=== PATIENT | female | born 1950 | race Caucasian/White ===

== ENCOUNTER 2020-01-13 11:06 | Outpatient (CLI) | payer MEDICARE, SELFPAY ==
[2020-01-13 11:45] LABS: Cholesterol 142 mg/dL (0-200); HDL Direct 49 mg/dL; Triglycerides 215 mg/dL (<150)
[2020-01-13 11:46] LABS: Blood Urea Nitrogen 16 mg/dL (7-17); Carbon Dioxide 25 mmol/L (22-30); Chloride 96 mmol/L (98-107); Estimated Glomerular Filt Rate > 60; Glucose 105 mg/dL (65-105); Potassium 4.3 mmol/L (3.4-5.0); Sodium 134 mmol/L (137-145)
[2020-01-13 11:56] LABS: LDL Cholesterol Direct 65 mg/dL
[2020-01-13 12:01] LABS: Sodium Urine Random 62 meq/L
[2020-01-15 05:09] LABS: Osmolality, Urine 490 mOsm/kg (50-1200)
== END 2020-01-13 11:07 | disposition home or self-care (01) ==
PROVIDERS: Internal Medicine Endocrinology, Diabetes & Metabolism; Visit Provider Internal Medicine
DX: E23.2 Diabetes insipidus (principal); E78.5 Hyperlipidemia, unspecified
CPT/HCPCS: 36415; 80048; 80061; 83935; 84300

== ENCOUNTER 2020-01-20 11:18 | Outpatient (CLI) | payer MEDICARE, SELFPAY ==
[2020-01-20 12:22] LABS: Blood Urea Nitrogen 12 mg/dL (7-17); Calcium 8.9 mg/dL (8.4-10.2); Carbon Dioxide 25 mmol/L (22-30); Chloride 96 mmol/L (98-107); Estimated Glomerular Filt Rate > 60; Glucose 179 mg/dL (65-105); Potassium 3.1 mmol/L (3.4-5.0); Sodium 135 mmol/L (137-145)
[2020-01-22 06:45] LABS: C-Peptide 0.93 ng/mL (0.80-3.85)
[2020-01-23 04:53] LABS: Osmolality, Urine 537 mOsm/kg (50-1200)
[2020-01-23 06:29] LABS: Glutamic acid decarboxylase AA <5 IU/mL (<5)
[2020-01-25 07:37] LABS: Islet Cell Antibody Screen NEGATIVE (NEGATIVE)
== END 2020-01-20 11:19 | disposition home or self-care (01) ==
PROVIDERS: Visit Provider Internal Medicine Endocrinology, Diabetes & Metabolism
DX: E11.9 Type 2 diabetes mellitus without complications (principal); E23.0 Hypopituitarism
CPT/HCPCS: 36415; 80048; 83935; 84681; 86341

== ENCOUNTER 2020-02-11 00:14 | Day surgery (SDC) | payer MEDICARE, SELFPAY ==
[2020-02-07 09:21] VITALS: BMI 44.3
[2020-02-11 07:45] VITALS: BP 177/61; PULSE 84; RESP 18; TEMP 36.1; O2SAT 96; BMI 29.1
[2020-02-11] MEDS: LACTATED RINGERS 1,000 ML 150 ML IV CONT (07:50)
[2020-02-11 08:04] LABS: Glucose Point of Care 123 (65-105)
--- NOTE | 2020-02-11 08:17 | WPDANESEPPF ---
Anes - Initial Pre Proc Eval Procedure: Operation Date: 02/11/20 08:30 Proposed Procedures p Screening Colonoscopy - Palmer Dudley MD Date/Time: 02/11/20 08:17 Surgeon: Palmer Dudley MD Pre Op Diagnosis: Neoplasm Screening Patient Data Age: 69 Gender: F Height: 5 ft 2 in Weight: 72.3 kg Last Vital Signs Temp 36.1 C L 02/11/20 07:45 Pulse 84 02/11/20 07:45 Resp 18 02/11/20 07:45 BP 177/61 H 02/11/20 07:45 Pulse Ox 96 02/11/20 07:45 Allergies Allergy/AdvReac Type Severity Reaction Status Date / Time metformin Allergy Unknown Verified 02/11/20 07:40 Sulfa (Sulfonamide Allergy Unknown Verified 02/11/20 07:40 Antibiotics) Home Medications Medication Instructions Recorded Confirmed Type isosorbide mononitrate 60 mg 60 mg PO DAILY #90 tablet 10/14/19 02/11/20 Rx tablet,extended release 24 hr lancets 32 gauge #400 each 12/09/19 01/15/20 Rx lisinopril 20 mg tablet 20 mg PO DAILY #90 tablet 12/09/19 02/11/20 Rx blood-glucose meter #1 each 12/16/19 01/15/20 Rx amlodipine 5 mg tablet 5 mg PO DAILY 12/25/19 02/11/20 History furosemide 40 mg tablet 40 mg PO QAM 12/25/19 02/11/20 History gabapentin 300 mg capsule 300 mg PO DAILY 12/25/19 02/11/20 History oxybutynin chloride 10 mg 10 mg PO DAILY 12/25/19 02/11/20 History tablet,extended release 24 hr propranolol 20 mg tablet 20 mg PO DAILY tablet 12/25/19 02/11/20 History rosuvastatin 20 mg tablet 20 mg PO DAILY 12/25/19 02/11/20 History sertraline 100 mg tablet 100 mg PO BID tablet 12/25/19 02/11/20 History carbidopa 25 mg-levodopa 100 mg 1 tablet PO TID 12/31/19 02/11/20 History tablet quetiapine 25 mg tablet 25 mg PO DAILY tablet 12/31/19 02/11/20 History hydrocortisone 20 mg tablet 20 mg PO DAILY 90 Days #90 tablet 01/15/20 02/11/20 Rx hydrocortisone 5 mg tablet 5 mg PO DAILY #90 tablet 01/15/20 02/11/20 Rx insulin glargine 100 unit/mL (3 45 unit SUB-Q DAILY 90 Days #40.5 01/15/20 02/11/20 Rx mL) subcutaneous pen ml insulin lispro 100 unit/mL 20 unit SUB-Q TID 90 Days #54 ml 01/15/20 02/11/20 Rx subcutaneous pen lancets #100 each 01/15/20 01/15/20 Rx levothyroxine 75 mcg tablet 75 mcg PO DAILY #90 tablet 01/15/20 02/11/20 Rx potassium chloride 20 mEq/15 mL 20 meq PO BID 30 Days #900 ml 01/15/20 02/11/20 Rx oral liquid blood sugar diagnostic #400 each 01/16/20 Rx clopidogrel 75 mg tablet 75 mg PO DAILY #90 tablet 01/28/20 02/11/20 Rx desmopressin 0.05 mg PO TID 02/07/20 02/11/20 History Laboratory Tests 02/11/20 08:02 POC Capillary Glucose 123 mg/dl H mg/dl (65-105) Patient hx anesthesia problems: none Family hx anesthesia problems: none PMFSH Past Medical History Medical History Adrenal insufficiency Diabetes mellitus with hyperglycemia Hypopituitarism Hypothyroidism, unspecified Pituitary deficiency Family History Family History Mother Cerebrovascular accident Family history of diabetes mellitus in first degree relative Patient's mother is Sibling Family history of chronic obstructive pulmonary disease Family history of diabetes mellitus in first degree relative Father Patient's father is Social History Social History Smoking status: Never smoker Alcohol intake: never Anes - Eval Final PreProcedure Day of Procedure 02/11/20 08:17 Patient weight: overweight Heart: regular rate and rhythm Lungs: clear to auscultation Airway: Mallampati scale class II Neurological: other (alert) Last oral intake: >/= 8 hours ASA classification: III Emergent: no Anesthetic plan: proceed Anesthesia type and monitoring: general GIVS and standard monitoring Informed Consent: The patient's anesthetic plan and its attendant risks and benefits were discussed wi
--- NOTE | 2020-02-11 08:44 | PM.HPGS ---
History of Present Illness History of Present Illness Consent: Risks, benefits, and alternatives have been discussed and questions answered. Patient agrees to proceed with procedure. Chief complaint: Neoplasm Screening Narrative: Darlyn Vazquez is a 69 year old female her for abnormal cologuard, last colonoscopy 8 years ago with polyp Review of Systems Constitutional: Constitutional: Denies headache(s) and Denies weakness Eyes: Eyes: Denies blurry vision ENT: Reports Normal hearing present, Denies headache(s) and Denies neck pain Cardiovascular: Cardiovascular: Denies chest pain and Denies dyspnea Respiratory: Respiratory: Denies dyspnea Gastrointestinal: Gastrointestinal: Reports no additional gastrointestinal complaints Genitourinary: Genitourinary: Denies dysuria Musculoskeletal: Musculoskeletal: Denies neck pain Integumentary/Breasts: Skin/Breast: Denies dry skin Neurologic: Reports Normal hearing present, Denies headache(s) and Denies weakness Psychiatric: Psychiatric: Denies anxiety Endocrine: Endocrine: Denies change in body appearance Hematologic/Lymphatic: Hematologic/Lymphatic: Denies easy bleeding Allergic/Immunologic: Allergic/Immunologic: Denies urticaria PMFSH Past Medical History Medical History Adrenal insufficiency Diabetes mellitus with hyperglycemia Hypopituitarism Hypothyroidism, unspecified Pituitary deficiency Family History Family History Mother Cerebrovascular accident Family history of diabetes mellitus in first degree relative Patient's mother is Sibling Family history of chronic obstructive pulmonary disease Family history of diabetes mellitus in first degree relative Father Patient's father is Social History Social History Smoking status: Never smoker Alcohol intake: never Meds Home Medications and Allergies Home Medications Medication Instructions Recorded Confirmed Type isosorbide mononitrate 60 mg 60 mg PO DAILY #90 tablet 10/14/19 02/11/20 Rx tablet,extended release 24 hr lancets 32 gauge #400 each 12/09/19 01/15/20 Rx lisinopril 20 mg tablet 20 mg PO DAILY #90 tablet 12/09/19 02/11/20 Rx blood-glucose meter #1 each 12/16/19 01/15/20 Rx amlodipine 5 mg tablet 5 mg PO DAILY 12/25/19 02/11/20 History furosemide 40 mg tablet 40 mg PO QAM 12/25/19 02/11/20 History gabapentin 300 mg capsule 300 mg PO DAILY 12/25/19 02/11/20 History oxybutynin chloride 10 mg 10 mg PO DAILY 12/25/19 02/11/20 History tablet,extended release 24 hr propranolol 20 mg tablet 20 mg PO DAILY tablet 12/25/19 02/11/20 History rosuvastatin 20 mg tablet 20 mg PO DAILY 12/25/19 02/11/20 History sertraline 100 mg tablet 100 mg PO BID tablet 12/25/19 02/11/20 History carbidopa 25 mg-levodopa 100 mg 1 tablet PO TID 12/31/19 02/11/20 History tablet quetiapine 25 mg tablet 25 mg PO DAILY tablet 12/31/19 02/11/20 History hydrocortisone 20 mg tablet 20 mg PO DAILY 90 Days #90 tablet 01/15/20 02/11/20 Rx hydrocortisone 5 mg tablet 5 mg PO DAILY #90 tablet 01/15/20 02/11/20 Rx insulin glargine 100 unit/mL (3 45 unit SUB-Q DAILY 90 Days #40.5 01/15/20 02/11/20 Rx mL) subcutaneous pen ml insulin lispro 100 unit/mL 20 unit SUB-Q TID 90 Days #54 ml 01/15/20 02/11/20 Rx subcutaneous pen lancets #100 each 01/15/20 01/15/20 Rx levothyroxine 75 mcg tablet 75 mcg PO DAILY #90 tablet 01/15/20 02/11/20 Rx potassium chloride 20 mEq/15 mL 20 meq PO BID 30 Days #900 ml 01/15/20 02/11/20 Rx oral liquid blood sugar diagnostic #400 each 01/16/20 Rx clopidogrel 75 mg tablet 75 mg PO DAILY #90 tablet 01/28/20 02/11/20 Rx desmopressin 0.05 mg PO TID 02/07/20 02/11/20 History Allergies Allergy/AdvReac Type Severity Reaction Status Date / Time metformin Allergy Unknown Verified 01/25
[2020-02-11 09:40] VITALS: BP 141/68; PULSE 62; RESP 19; O2SAT 98
[2020-02-11 09:50] VITALS: BP 187/63; PULSE 56; RESP 20; O2SAT 97
[2020-02-11 10:23] LABS: Glucose Point of Care 107 (65-105)
[2020-02-11 10:28] VITALS: BP 188/85; PULSE 53; RESP 26; O2SAT 96
== END 2020-02-11 10:27 | disposition home or self-care (01) ==
PROVIDERS: Visit Provider Internal Medicine Gastroenterology
PROC: 0DJD8ZZ Inspection of Lower Intestinal Tract, Via Natural or Artificial Opening Endoscopic (ICD-10-PCS; CPT 45378; principal; 2020-02-11 08:30)
DX: Z12.11 Encounter for screening for malignant neoplasm of colon (principal); D12.0 Benign neoplasm of cecum; D12.2 Benign neoplasm of ascending colon; D12.3 Benign neoplasm of transverse colon; K63.5 Polyp of colon; R19.5 Other fecal abnormalities; K57.30 Diverticulosis of large intestine without perforation or abscess without bleeding; K64.8 Other hemorrhoids; K64.4 Residual hemorrhoidal skin tags; E11.9 Type 2 diabetes mellitus without complications; E03.9 Hypothyroidism, unspecified; E23.0 Hypopituitarism; Z79.4 Long term (current) use of insulin; Z79.02 Long term (current) use of antithrombotics/antiplatelets
CPT/HCPCS: 45385; 88305; J2704; J7120

== ENCOUNTER 2020-04-02 12:02 | Outpatient (CLI) | payer MEDICARE, SELFPAY ==
[2020-04-02 12:51] LABS: Blood Urea Nitrogen 14 mg/dL (7-17); Calcium 8.9 mg/dL (8.4-10.2); Carbon Dioxide 28 mmol/L (22-30); Chloride 98 mmol/L (98-107); Estimated Glomerular Filt Rate > 60; Glucose 279 mg/dL (65-105); Potassium 4.5 mmol/L (3.4-5.0); Sodium 133 mmol/L (137-145)
== END 2020-04-02 12:03 | disposition home or self-care (01) ==
LOC: ANHLAB 12:03
PROVIDERS: Visit Provider Internal Medicine Endocrinology, Diabetes & Metabolism
DX: E23.0 Hypopituitarism (principal); E11.9 Type 2 diabetes mellitus without complications; E27.40 Unspecified adrenocortical insufficiency; E87.6 Hypokalemia
CPT/HCPCS: 36415; 80048

== ENCOUNTER 2020-04-16 14:23 | Outpatient (CLI) | payer MEDICARE, SELFPAY ==
[2020-04-16 16:00] LABS: Blood Urea Nitrogen 18 mg/dL (7-17); Calcium 8.9 mg/dL (8.4-10.2); Carbon Dioxide 29 mmol/L (22-30); Chloride 101 mmol/L (98-107); Estimated Glomerular Filt Rate > 60; Glucose 71 mg/dL (65-105); Potassium 3.8 mmol/L (3.4-5.0); Sodium 136 mmol/L (137-145)
[2020-04-16 16:12] LABS: Parathyroid Intact 131.4 pg/mL (7.5-53.5)
[2020-04-16 17:16] LABS: Free T4 Free Thyroxine 0.93 ng/mL (0.78-2.19); Vitamin D 25 Hydroxy 26.5 ng/mL
== END 2020-04-16 14:24 | disposition home or self-care (01) ==
PROVIDERS: Visit Provider Internal Medicine Endocrinology, Diabetes & Metabolism
DX: E11.65 Type 2 diabetes mellitus with hyperglycemia (principal); Z79.4 Long term (current) use of insulin; E23.0 Hypopituitarism; E78.1 Pure hyperglyceridemia; N18.3 Chronic kidney disease, stage 3 (moderate)
CPT/HCPCS: 36415; 80048; 82306; 83970; 84439

== ENCOUNTER 2020-04-17 13:39 | Outpatient (CLI) | payer MEDICARE, SELFPAY ==
[2020-04-20 09:44] LABS: Osmolality, Urine 611 mOsm/kg (50-1200)
== END 2020-04-17 13:40 | disposition home or self-care (01) ==
PROVIDERS: Visit Provider Internal Medicine Endocrinology, Diabetes & Metabolism
DX: E03.8 Other specified hypothyroidism (principal); E21.3 Hyperparathyroidism, unspecified; E11.65 Type 2 diabetes mellitus with hyperglycemia; E23.0 Hypopituitarism; E23.2 Diabetes insipidus; E27.40 Unspecified adrenocortical insufficiency; M85.80 Other specified disorders of bone density and structure, unspecified site; Z79.4 Long term (current) use of insulin; E78.1 Pure hyperglyceridemia; N18.3 Chronic kidney disease, stage 3 (moderate)
CPT/HCPCS: 83935

== ENCOUNTER 2020-10-07 08:59 | Outpatient (CLI) | payer MEDICARE, SELFPAY ==
[2020-10-07 10:10] LABS: Creatinine Urine 108.3 mg/dL
[2020-10-07 10:15] LABS: MALB Creatinine Ratio 49.7 mg/g (0-30); Microalbumin Urine Random 53.8 mg/L (0-16.7)
[2020-10-07 10:21] LABS: Free T4 Free Thyroxine 1.05 ng/mL (0.78-2.19)
[2020-10-07 10:41] LABS: Calcium 8.8 mg/dL (8.4-10.2)
[2020-10-07 11:02] LABS: Parathyroid Intact 117.2 pg/mL (7.5-53.5)
[2020-10-07 11:28] LABS: Alanine Aminotransferase 23 U/L (4-35); Albumin Level 4.1 g/dL (3.5-5.1); Alkaline Phosphatase 94 U/L (38-126); Anion Gap 10 mmol/L (8-16); Aspartate Amino Transferase 101 U/L (14-36); Bilirubin,Total 0.5 mg/dL (0.2-1.3); Blood Urea Nitrogen 12 mg/dL (7-17); Calcium 8.8 mg/dL (8.4-10.2); Carbon Dioxide 29 mmol/L (22-30); Chloride 97 mmol/L (98-107); Cholesterol 150 mg/dL (0-200); Estimated Glomerular Filt Rate > 60; Glucose 122 mg/dL (65-105); HDL Direct 58 mg/dL; Potassium 3.3 mmol/L (3.4-5.0); Sodium 136 mmol/L (137-145); Triglycerides 211 mg/dL (<150)
[2020-10-07 11:39] LABS: LDL Cholesterol Direct 59 mg/dL
[2020-10-10 07:38] LABS: Osmolality, Urine 574 mOsm/kg (50-1200)
== END 2020-10-07 09:00 | disposition home or self-care (01) ==
PROVIDERS: Referring Provider Nurse Practitioner; Visit Provider Internal Medicine Endocrinology, Diabetes & Metabolism
DX: E78.5 Hyperlipidemia, unspecified (principal); E11.65 Type 2 diabetes mellitus with hyperglycemia; E23.0 Hypopituitarism; R79.89 Other specified abnormal findings of blood chemistry
CPT/HCPCS: 36415; 80053; 80061; 82043; 82310; 83935; 83970; 84439

== ENCOUNTER 2020-10-16 10:58 | Outpatient (CLI) | payer MEDICARE, SELFPAY ==
--- NOTE | ~2020-10-16 | US_ITS ---
EXAMINATION: US abdomen limited EXAM DATE: 10/16/2020 12:16 INDICATION: R79.89 - Other specified abnormal findings of blood chemistry. Elevated liver function te sts. TECHNIQUE: Multiple grayscale and Doppler images of the abdomen right upper quadrant were obtained (b y a technologist who performed the scan) and subsequently reviewed. There is no prior study for dayan caldwell. FINDINGS: The pancreatic head and body are normal in appearance. The pancreatic tail is not visualized. The l iver has normal echogenicity and contour. There are no focal liver lesions identified. There is no evidence of intrahepatic biliary duct dilation. Portal venous flow was seen in the hepatopedal, nor mal direction and has normal Doppler waveform. No right-sided hydronephrosis. Spleen measures 9.7 cm , normal. Common bile duct measures 3 mm, which is normal. The gallbladder fossa is unremarkable. IMPRESSION: 1. Unremarkable abdominal ultrasound exam. Reviewed, dictated and finalized at location A. IL ROUTE SUPERVISOR
== END 2020-10-16 10:59 | disposition home or self-care (01) ==
PROVIDERS: Visit Provider Nurse Practitioner
DX: R79.89 Other specified abnormal findings of blood chemistry (principal)
CPT/HCPCS: 76705

== ENCOUNTER 2020-10-30 10:56 | Outpatient (CLI) | payer MEDICARE, SELFPAY ==
--- NOTE | ~2020-10-30 | XR_ITS ---
EXAMINATION: XR sternum min 2V EXAM DATE: 10/30/2020 11:32 INDICATION: Midsternal region wound, stabbing pain. TECHNIQUE: Lateral, oblique projections of the sternum. There is no prior study for comparison. FINDINGS: Sternotomy wires are present without findings to suggest sternal dehiscence. There is poss ible soft tissue defect over the sternum, could be the wound described. No evidence of osseous erosiv e change of the sternum which is about 1 cm deep to this. IMPRESSION: Probable soft tissue wound without underlying sternal osseous change. Reviewed, dictated and finalized at location A. INATION PROCTOR IMPRESSION: Probable soft tissue wound without underlying sternal osseous sampson
== END 2020-10-30 10:57 | disposition home or self-care (01) ==
LOC: ANHIMG 11:00
PROVIDERS: Visit Provider Internal Medicine
DX: R07.9 Chest pain, unspecified (principal)
CPT/HCPCS: 71120

== ENCOUNTER 2020-11-18 08:36 | Emergency (ER) | payer MEDICARE, SELFPAY ==
--- NOTE | ~2020-11-18 | XR_ITS ---
EXAMINATION: XR chest 1V portable EXAM DATE: 11/18/2020 09:47 INDICATION: Fever. TECHNIQUE: Portable AP frontal chest x-ray was obtained. Comparison is made to prior examination from 07/01/2019. FINDINGS: Sternotomy wires are present without findings to suggest sternal dehiscence. Linear right b asilar atelectasis. The lungs are otherwise clear. There are no pleural effusions. The cardiomedias tinal silhouette is within normal limits. There is no pneumothorax suspected. The bones are osteope lisa. There are bony degenerative changes. IMPRESSION: No acute cardiopulmonary findings. Reviewed, dictated and finalized at location B. L CELEBRANT
--- NOTE | ~2020-11-18 | CT_ITS ---
EXAMINATION: CT abdomen pelvis w con EXAM DATE: 11/18/2020 10:37 INDICATION: diverticulitis LLQ pain, fever of 103. TECHNIQUE: Spiral CT of the abdomen and pelvis was performed following intravenous injection of 100 m L Omnipaque 350. Axial, coronal and sagittal images were reviewed. The dose-length product (DLP) fo r this examination was 978.96 mGy-cm. The exposure was tailored according to patient size (auto mA e xposure control), and iterative reconstruction (ASIR) was used as additional dose reduction technique . Comparison is made to prior examination from 03/04/2014. FINDINGS: The liver, spleen, adrenal glands and pancreas are unremarkable. There are cholecystectomy clips. There is enhancing bilateral renal pelvic, ureteral urothelium. Moderate nonspecific left per irenal fat stranding, and mild on the right. Left renal lesion most likely cyst measuring 1.7 cm. The uterus is not identified and has likely been surgically resected. The bladder is unremarkable. The re is no retroperitoneal or pelvic lymphadenopathy. There is mild scattered arteriosclerotic diseas e. Probable identification of a normal appendix. No pericecal inflammation. The stomach and small cait l are unremarkable. There is expected amount of colonic stool. No free intraperitoneal gas. The heart is normal in size. There are no pericardial or pleural effusions. There is right lower lobe s ubsegmental atelectasis. There are no osteoblastic or osteolytic lesions identified. Sternotomy wire s. IMPRESSION: Enhancing bilateral ureteral/renal pelvic urothelium suspicious for upper urinary tract i nfection. No evidence of pyelonephritis. Correlate with urinalysis. Reviewed, dictated and finalized at location B. ONNEL SECURITY ASSISTANT IMPRESSION: Enhancing bilateral ureteral/renal pelvic urothelium suspicious for upper urinary tract infection. No evidence of pyelonephritis. Correlate with u rinalysis.
[2020-11-18 08:56] LABS: Appearance Urine Cloudy (Clear); Bilirubin Urine Negative (Negative); Color Urine Yellow (Yellow); Glucose Urine UA Negative (Negative); Ketones Urine Negative (Negative); Leukocyte Esterase Ur 2+ (Negative); Nitrate Urine Positive (Negative); Protein Urine 1+ (Negative); Urobilinogen Urine 0.2 mg/dL (0.2-1.0); pH Urine 7.5 (5.0-8.0)
[2020-11-18 09:00] VITALS: BP 182/92; PULSE 75; RESP 20; TEMP 39.9; O2SAT 96
[2020-11-18 09:04] LABS: Add Urine Microscopic? YES; Bacteria Urine 3+ /hpf; Blood Urine Trace-lysed (Negative); RBC Urine 0-2 /hpf (0-2); Squamous Epithelial Cell Urine Few /hpf (Few); WBC Urine 21-30 /hpf (0-3)
[2020-11-18 09:21] LABS: Basophils Absolute Auto 0.03 K/mm3 (0.00-0.10); Basophils Percent Auto 0.3 % (0.0-1.0); Eosinophils Absolute Auto 0.16 K/mm3 (0.02-0.50); Eosinophils Percent Auto 1.4 % (1.0-6.0); Hematocrit 37.3 % (35.0-42.0); Hemoglobin 11.8 g/dL (11.7-13.8); Immature Granulocyte Absolute 0.08 K/mm3 (0.00-0.00); Immature Granulocyte Percent A 0.7 % (0.0-0.0); Lymphocytes Absolute Auto 2.76 K/mm3 (1.10-4.50); Lymphocytes Percent Auto 23.7 % (18.0-42.0); Mean Corpuscular HGB Conc 31.6 g/dL (32.0-36.0); Mean Corpuscular Hemoglobin 27.4 pg (27.0-31.0); Mean Corpuscular Volume 86.7 fL (78.0-102.0); Mean Platelet Volume 9.8 fl (9.2-11.8); Monocytes Absolute Auto 1.06 K/mm3 (0.10-0.90); Monocytes Percent Auto 9.1 % (2.0-11.0); Neutrophils Absolute Auto 7.6 K/mm3 (1.7-7.2); Neutrophils Percent Auto 64.8 % (50.0-70.0); Platelet Count Result 190 K/mm3 (150-420); Red Cell Distribution Width 14.1 % (11.6-14.4); White Blood Count 11.6 K/mm3 (4.8-10.8)
[2020-11-18 09:30] LABS: SARS-CoV-2 Ag Negative (Negative)
[2020-11-18 09:30] LABS: Influenza Control Valid (Valid)
[2020-11-18 09:35] LABS: Alanine Aminotransferase 41 U/L (14-59); Albumin Level 3.4 g/dL (3.4-5.0); Alkaline Phosphatase 126 U/L (46-116); Anion Gap 6 mmol/L (8-16); Aspartate Amino Transferase 59 U/L (15-37); Bilirubin,Total 0.6 mg/dL (0.00-1.00); Blood Urea Nitrogen 14 mg/dL (7-18); Calcium 8.8 mg/dL (8.5-10.1); Carbon Dioxide 31 mmol/L (21-32); Chloride 102 mmol/L (98-108); Estimated Glomerular Filt Rate 53; Glucose 141 mg/dL (70-99); Osmolality Calculated 290 mOsm/kg (285-295); Potassium 3.8 mmol/L (3.5-5.1); Sodium 139 mmol/L (136-145); Total Protein 7.1 g/dL (6.4-8.2)
[2020-11-18 09:36] LABS: BNP 242 pg/mL (0-100)
[2020-11-18 09:37] LABS: Magnesium 1.9 mg/dL (1.8-2.4); Troponin I 12.6 ng/L (0.00-60.4)
[2020-11-18 09:41] LABS: Lactic Acid Reflex 1.8 mmol/L (0.4-2.0)
[2020-11-18] MEDS: SODIUM CHLORIDE 0.9% IV 1,000 ML 500 ML IV CONT (09:43)
[2020-11-18] MEDS: ACETAMINOPHEN 500 MG TABLET 1000 MG PO (09:43)
[2020-11-18] MEDS: POTASSIUM CHLORIDE 20 MEQ TABLET 40 MEQ PO (09:44)
[2020-11-18 10:00] VITALS: BP 156/60; PULSE 72; RESP 20; O2SAT 93
[2020-11-18] MEDS: GENTAMICIN SULFATE INJ 240 MG in DEXTROSE 5% 100 ML 100 MG IVPB (10:12)
[2020-11-18 11:00] VITALS: BP 143/67; PULSE 70; RESP 20; O2SAT 94
--- NOTE | 2020-11-18 11:01 | PC.NURSE ---
report to HIMANSHU Layne
--- NOTE | 2020-11-18 11:20 | ED.WEAKNESS ---
HPI - Weakness General Chief complaint: Weakness Stated complaint: AMBULANCE Time Seen by Provider: 11/18/20 09:00 Source: patient and family Mode of arrival: EMS Limitations: altered mental status History of Present Illness HPI Narrative: says she has not been as mentally alert this am as typical, and appeared weak. He first noticed this today when she got up. Weakness has been moderately severe and ongoing, starting this am, this was unchanged by anything the could do. Related Data Home Medications Medication Instructions Recorded Confirmed gabapentin 300 mg capsule 300 mg PO DAILY 12/25/19 11/18/20 sertraline 100 mg tablet 100 mg PO DAILY tablet 12/25/19 11/18/20 carbidopa 25 mg-levodopa 100 mg 2 tablet PO TID 12/31/19 11/18/20 tablet quetiapine 25 mg tablet 25 mg PO BID tablet 12/31/19 11/18/20 cholecalciferol (vitamin D3) 25 25 mcg PO DAILY 07/22/20 11/18/20 mcg (1,000 unit) capsule furosemide 40 mg PO DAILY 11/18/20 11/18/20 hydrocortisone 5 mg PO HS 11/18/20 11/18/20 insulin lispro [Humalog U-100 22 unit SUB-Q QAM 11/18/20 11/18/20 Insulin] propranolol 20 mg PO DAILY 11/18/20 11/18/20 Allergies Allergy/AdvReac Type Severity Reaction Status Date / Time metformin Allergy Unknown breathing Verified 06/30/20 09:38 problems Sulfa (Sulfonamide Allergy Unknown break out Verified 06/30/20 09:38 Antibiotics) Review of Systems Constitutional: Constitutional: Reports no additional constitutional complaints Eyes: Eyes: Reports no additional eye complaints ENT: Reports system reviewed and no additional complaints, except as documented Cardiovascular: Cardiovascular: Reports no additional cardiovascular complaints Respiratory: Respiratory: Reports no additional respiratory complaints Gastrointestinal: Gastrointestinal: Reports no additional gastrointestinal complaints Genitourinary: Genitourinary: Reports no additional female genitourinary complaints Musculoskeletal: Musculoskeletal: Reports no additional musculoskeletal complaints Integumentary/Breasts: Skin/Breast: Reports system reviewed and no additional complaints, except as docu Neurologic: Reports system reviewed and no additional complaints, except as documented Psychiatric: Psychiatric: Reports no additional psychiatric complaints Endocrine: Endocrine: Reports no additional endocrine complaints Hematologic/Lymphatic: Hematologic/Lymphatic: Reports no additional hematologic/lymphatic complaints Allergic/Immunologic: Allergic/Immunologic: Reports no additional allergic/immunologic complaints PMFSH Past Medical History Medical History (Updated 11/18/20 @ 12:22 by Corey Deluca MD) Adrenal insufficiency Diabetes mellitus with hyperglycemia Hypopituitarism Hypothyroidism, unspecified Pituitary deficiency Positive colorectal cancer screening using Cologuard test Surgical History Surgical History (Updated 11/18/20 @ 12:22 by Corey Deluca MD) Failed CABG (coronary artery bypass graft) Family History Family History Mother Cerebrovascular accident Family history of diabetes mellitus in first degree relative Patient's mother is Sibling Family history of chronic obstructive pulmonary disease Family history of diabetes mellitus in first degree relative Father Patient's father is Social History Social History Smoking status: Never smoker Alcohol intake: never Exam Narrative: Exam Narrative: Woman 70 years who appears weak, but in no acute distress. Const: General: no acute distress and alert Nutritional Appearance: well nourished HENMT: Head: normal to inspection General nose exam: Normal external nose present and Normal nares present Face and sinus: normal facial exam Mouth: Yes Normal oral and palatal mucosa present Teeth and gingiva: dentition no
[2020-11-18 12:00] VITALS: BP 146/62; PULSE 71; RESP 20; O2SAT 95
== END 2020-11-18 12:35 | disposition home or self-care (01) ==
PROVIDERS: Emergency Provider Emergency Medicine; PCP Internal Medicine
DX: N12 Tubulo-interstitial nephritis, not specified as acute or chronic (principal); E11.9 Type 2 diabetes mellitus without complications; E03.9 Hypothyroidism, unspecified
CPT/HCPCS: 36415; 71045; 74177; 80053; 81001; 83605; 83735; 83880; 84484; 85025; 87040; 87077; 87086; 87088; 87186; 87426; 87804; 96365; 96366; 96368; 99283; 99284; A9270; J0696; J1580; J7030; Q9965; Q9967

== ENCOUNTER 2020-12-07 08:19 | Outpatient (CLI) | payer MEDICARE, SELFPAY ==
[2020-12-07 09:13] LABS: Anion Gap 8 mmol/L (8-16); Blood Urea Nitrogen 14 mg/dL (7-17); Calcium 8.8 mg/dL (8.4-10.2); Carbon Dioxide 30 mmol/L (22-30); Chloride 94 mmol/L (98-107); Estimated Glomerular Filt Rate > 60; Glucose 131 mg/dL (65-105); Potassium 3.3 mmol/L (3.4-5.0); Sodium 132 mmol/L (137-145)
== END 2020-12-07 08:20 | disposition home or self-care (01) ==
PROVIDERS: PCP Internal Medicine
DX: E87.6 Hypokalemia (principal)
CPT/HCPCS: 36415; 80048

== ENCOUNTER 2020-12-15 09:34 | Outpatient (CLI) | payer MEDICARE, SELFPAY ==
[2020-12-15 10:33] LABS: Anion Gap 7 mmol/L (8-16); Blood Urea Nitrogen 9 mg/dL (7-17); Calcium 8.5 mg/dL (8.4-10.2); Carbon Dioxide 26 mmol/L (22-30); Chloride 96 mmol/L (98-107); Estimated Glomerular Filt Rate > 60; Glucose 216 mg/dL (65-105); Sodium 129 mmol/L (137-145)
== END 2020-12-15 09:35 | disposition home or self-care (01) ==
PROVIDERS: PCP Internal Medicine; Visit Provider Internal Medicine
DX: E11.65 Type 2 diabetes mellitus with hyperglycemia (principal); E87.6 Hypokalemia
CPT/HCPCS: 36415; 80048

== ENCOUNTER 2020-12-24 08:29 | Outpatient (CLI) | payer MEDICARE, SELFPAY ==
[2020-12-24 09:07] LABS: Anion Gap 4 mmol/L (8-16); Blood Urea Nitrogen 12 mg/dL (7-17); Carbon Dioxide 32 mmol/L (22-30); Chloride 99 mmol/L (98-107); Estimated Glomerular Filt Rate > 60; Glucose 62 mg/dL (65-105); Potassium 3.5 mmol/L (3.4-5.0); Sodium 135 mmol/L (137-145)
== END 2020-12-24 08:30 | disposition home or self-care (01) ==
LOC: ANHLAB 08:31
PROVIDERS: Family Provider Internal Medicine; PCP Internal Medicine; Visit Provider Internal Medicine
DX: E87.6 Hypokalemia (principal); N18.30 Chronic kidney disease, stage 3 unspecified
CPT/HCPCS: 36415; 80048

== ENCOUNTER 2021-03-05 10:53 | Outpatient (CLI) | payer MEDICARE, SELFPAY ==
--- NOTE | ~2021-03-05 | XR_ITS ---
EXAMINATION: XR lumbar spine 2-3V EXAM DATE: 03/05/2021 11:22 INDICATION: M54.9 - Dorsalgia, unspecified, multiple falls. TECHNIQUE: Lumber spine frontal, lateral, lateral L5-S1 projections for interpretation. Comparison is made to prior examination from 11/14/2014. FINDINGS: There are no acute fractures identified. Mild diffuse lumbar disc disease. The vertebral body heights are maintained. The vertebral bodies are aligned in the AP dimension. There is moderate lower lumbar, mild upper lumbar facet arthropathy. There is aortic arteriosclerosis. There are cholec ystectomy clips. Sacrum, sacroiliac joints, sacral arcuate lines are intact. Calcifications in the pe lvis are believed to be phleboliths. IMPRESSION: 1. Moderate lower lumbar facet arthropathy. 2. Mild disc disease. Reviewed, dictated and finalized at location A.
== END 2021-03-05 10:54 | disposition home or self-care (01) ==
LOC: ANHIMG 10:59
PROVIDERS: PCP Internal Medicine; Visit Provider Internal Medicine
DX: M51.36 Other intervertebral disc degeneration, lumbar region (principal)
CPT/HCPCS: 72100

== ENCOUNTER 2021-03-29 15:04 | Outpatient (CLI) | payer MEDICARE, SELFPAY ==
[2021-03-29 15:46] LABS: Anion Gap 5 mmol/L (8-16); Blood Urea Nitrogen 15 mg/dL (7-17); Carbon Dioxide 30 mmol/L (22-30); Chloride 105 mmol/L (98-107); Estimated Glomerular Filt Rate > 60; Glucose 211 mg/dL (65-105); Potassium 3.8 mmol/L (3.4-5.0); Sodium 140 mmol/L (137-145)
== END 2021-03-29 15:05 | disposition home or self-care (01) ==
PROVIDERS: PCP Internal Medicine; Visit Provider Internal Medicine
DX: E11.22 Type 2 diabetes mellitus with diabetic chronic kidney disease (principal); N18.30 Chronic kidney disease, stage 3 unspecified
CPT/HCPCS: 36415; 80048

== ENCOUNTER 2021-04-15 20:48 | Emergency (ER) | payer MEDICARE, SELFPAY ==
[2021-04-15 20:50] VITALS: BP 138/74; PULSE 82; RESP 20; TEMP 37.1; O2SAT 97
--- NOTE | 2021-04-15 21:30 | ED.WOUNDLAC ---
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 There is no fever chills no chest pain no shortness of breath no nausea vomiting. Onset (ago): hour(s) Location: chest Body four view annotation: 1. bleeding wound Related Data Home Medications Medication Instructions Recorded Confirmed gabapentin 300 mg capsule 300 mg PO DAILY 12/25/19 03/05/21 sertraline 100 mg tablet 100 mg PO DAILY tablet 12/25/19 03/05/21 carbidopa 25 mg-levodopa 100 mg 2 tablet PO TID 12/31/19 03/05/21 tablet cholecalciferol (vitamin D3) 25 25 mcg PO DAILY 07/22/20 03/05/21 mcg (1,000 unit) capsule furosemide 40 mg PO DAILY 11/18/20 03/05/21 propranolol 20 mg PO DAILY 11/18/20 03/05/21 omega-3 fatty acids 1,000 mg 1,000 mg PO DAILY 12/07/20 03/05/21 capsule cyanocobalamin (vitamin B-12) 1,000 mcg PO DAILY 03/05/21 03/05/21 1,000 mcg capsule Allergies Allergy/AdvReac Type Severity Reaction Status Date / Time metformin Allergy Unknown breathing Verified 03/05/21 09:37 problems Sulfa (Sulfonamide Allergy Unknown break out Verified 03/05/21 09:37 Antibiotics) Review of Systems Review of Systems: All systems reviewed & are unremarkable except as noted in HPI and below PMFSH Past Medical History Medical History Adrenal insufficiency Diabetes mellitus with hyperglycemia Hypopituitarism Hypothyroidism, unspecified Pituitary deficiency Positive colorectal cancer screening using Cologuard test Pyelonephritis Surgical History Surgical History Failed CABG (coronary artery bypass graft) Family History Family History Mother Cerebrovascular accident Family history of diabetes mellitus in first degree relative Patient's mother is Sibling Family history of chronic obstructive pulmonary disease Family history of diabetes mellitus in first degree relative Father Patient's father is Social History Social History Smoking status: Never smoker Alcohol intake: never Exam Const: General: no acute distress and alert Orientation/consciousness: patient oriented x3 HENMT: Head: normal to inspection Eyes: Conjunctivae: conjunctivae normal Pupils: Equal, round and reactive pupils present Neck: Neck: normal visual inspection, no lymphadenopathy and no meningeal signs Chest: Chest palpation & inspection: normal inspection of the chest Resp: Effort & Inspection: normal respiratory effort Auscultation: clear to auscultation bilaterally Cardio: Rate: regular rate Rhythm: regular rhythm GI: GI Palp: Yes Soft to palpation Percussion: Yes normal to percussion Skin: General skin exam: normal color Other: Has a small wound that is oozing blood in the midsternal after she had repair of her sternotomy that was performed in 2000 and she had repair and 2 approximately 5 weeks ago. Neuro: General: patient oriented x3 Extrem: General: normal to inspection and no pedal edema Psych: Appearance: grossly normal Mental Status: mental status grossly normal Affect: normal affect Course Course Emergency Course: Area was cleaned held pressure for 20 minutes and Surgicel gauze was placed on the area that was oozing patient currently finished course of antibiotics and advised follow-up with her primary care physician and possibly [place]
[2021-04-15 21:45] VITALS: BP 138/72; PULSE 81; RESP 20; TEMP 36.9; O2SAT 94
== END 2021-04-15 21:50 | disposition home or self-care (01) ==
PROVIDERS: Emergency Provider Emergency Medicine; PCP Internal Medicine
DX: T81.30XA Disruption of wound, unspecified, initial encounter (principal)
CPT/HCPCS: 99282

== ENCOUNTER 2021-04-16 09:04 | Emergency (ER) | payer MEDICARE, SELFPAY ==
--- NOTE | ~2021-04-16 | XR_ITS ---
EXAMINATION: XR chest 2V DATE: 04/16/2021 11:07 INDICATION: Shortness of breath. TECHNIQUE: Frontal and lateral views of the chest were obtained. COMPARISON: Chest single view 11/18/2020, CT abdomen and pelvis 11/18/2020 FINDINGS: A calcified right lung nodule and calcified right hilar lymph nodes are consistent with old granulomatous disease. There is mild atelectasis at right lung base. No pleural effusion or pneumoth orax. The heart size is normal. Mediastinal surgical clips are seen from coronary artery bypass graft ing. Surgical clips in the right upper quadrant are likely from cholecystectomy. IMPRESSION: 1. Mild atelectasis at right lung base. Reviewed, dictated and finalized at location A.
[2021-04-16 09:10] VITALS: BP 153/61; PULSE 74; RESP 16; O2SAT 95
[2021-04-16 11:20] LABS: Basophils Percent Auto 0.3 % (0.2-1.2); Eosinophils Absolute Auto 0.1 K/mm3 (0-0.3); Hematocrit 31.4 % (37.0-47.0); Hemoglobin 9.9 g/dL (12.0-15.0); Immature Granulocyte Absolute 0.04 K/mm3 (0.00-0.031); Immature Granulocyte Percent A 0.6 % (0-0.5); Lymphocytes Absolute Auto 1.48 K/mm3 (0.9-3.2); Lymphocytes Percent Auto 22.6 % (18.3-44.2); Mean Corpuscular HGB Conc 31.5 g/dl (32-36); Mean Corpuscular Hemoglobin 24.9 pg (26-34); Mean Corpuscular Volume 78.9 fl (80-100); Monocytes Absolute Auto 0.5 K/mm3 (0.1-0.6); Monocytes Percent Auto 7.9 % (2.6-8.5); Neutrophils Absolute Auto 4.4 K/mm3 (1.3-6.7); Neutrophils Percent Auto 66.6 % (45.5-73.1); Platelet Count Result 192 k/mm3 (150-375); Red Blood Count 3.98 M/mm3 (4.2-5.4); Red Cell Distribution Width 14.3 % (11.5-14.5); White Blood Count 6.6 K/mm3 (4.5-10.0)
[2021-04-16 11:31] LABS: INR 1.1; Prothrombin Time 15.1 Seconds (11.1-14.7)
[2021-04-16 11:36] LABS: Lactic Acid Reflex 1.4 mmol/L (0.7-2.1)
[2021-04-16 11:42] LABS: Anion Gap 2 mmol/L (8-16); Blood Urea Nitrogen 14 mg/dL (7-17); Calcium 8.6 mg/dL (8.4-10.2); Carbon Dioxide 32 mmol/L (22-30); Chloride 101 mmol/L (98-107); Estimated CRCL calculation 52 ml/min; Estimated Glomerular Filt Rate > 60; Glucose 281 mg/dL (65-105); Potassium 2.6 mmol/L (3.4-5.0); Sodium 135 mmol/L (137-145)
[2021-04-16 11:49] VITALS: BP 120/61; PULSE 56; RESP 18; O2SAT 99
[2021-04-16] MEDS: POTASSIUM CHLORIDE 20 MEQ PACKET (FOR LIQUID) 40 MEQ (12:12)
[2021-04-16] MEDS: KCL 20 MEQ/SW 100 ML 100 ML 50 MEQ IVPB (12:14)
--- NOTE | 2021-04-16 12:38 | PC.NURSE ---
called dietary @1231 for food order
[2021-04-16 13:09] LABS: Glucose Point of Care 266 mg/dl (65-105)
[2021-04-16 14:13] VITALS: BP 131/72; PULSE 80; RESP 16; O2SAT 98
--- NOTE | 2021-04-16 15:13 | ED.GENADULT ---
HPI - General Adult General Chief complaint: Skin/Abscess/Foreign Body Stated complaint: Bleeding in chest after wires removed at [facility] Time Seen by Provider: 04/16/21 09:10 Source: patient and family History of Present Illness HPI narrative: 70-year-old with a history of hypertension, diabetes, adrenal insufficiency here with complaints of bleeding from the chest wall since last night. She denies any trauma. Patient states that she has multiple small ulcers on the chest wall which she is being taken care of by her doctor at [facility]. She denies any other complaints at this time. Related Data Home Medications Medication Instructions Recorded Confirmed gabapentin 300 mg capsule 300 mg PO DAILY 12/25/19 04/15/21 sertraline 100 mg tablet 100 mg PO DAILY tablet 12/25/19 04/15/21 carbidopa 25 mg-levodopa 100 mg 2 tablet PO TID 12/31/19 04/15/21 tablet cholecalciferol (vitamin D3) 25 25 mcg PO DAILY 07/22/20 04/15/21 mcg (1,000 unit) capsule furosemide 40 mg PO DAILY 11/18/20 04/15/21 propranolol 20 mg PO DAILY 11/18/20 04/15/21 omega-3 fatty acids 1,000 mg 1,000 mg PO DAILY 12/07/20 04/15/21 capsule cyanocobalamin (vitamin B-12) 1,000 mcg PO DAILY 03/05/21 04/15/21 1,000 mcg capsule clopidogrel 75 mg PO DAILY 04/16/21 quetiapine 25 mg PO BID 04/16/21 tramadol 50 mg PO Q6H PRN 04/16/21 Allergies Allergy/AdvReac Type Severity Reaction Status Date / Time metformin Allergy Unknown breathing Verified 04/16/21 09:17 problems Sulfa (Sulfonamide Allergy Unknown break out Verified 04/16/21 09:17 Antibiotics) Review of Systems Review of Systems: All systems reviewed & are unremarkable except as noted in HPI and below Constitutional: Constitutional: Reports no additional constitutional complaints Eyes: Eyes: Reports no additional eye complaints ENT: Reports system reviewed and no additional complaints, except as documented Cardiovascular: Cardiovascular: Reports no additional cardiovascular complaints Respiratory: Respiratory: Reports no additional respiratory complaints Gastrointestinal: Gastrointestinal: Reports no additional gastrointestinal complaints Musculoskeletal: Musculoskeletal: Reports no additional musculoskeletal complaints Integumentary/Breasts: Skin/Breast: Reports as per HPI Neurologic: Reports system reviewed and no additional complaints, except as documented PMFSH Past Medical History Medical History Adrenal insufficiency Diabetes mellitus with hyperglycemia Hypopituitarism Hypothyroidism, unspecified Pituitary deficiency Positive colorectal cancer screening using Cologuard test Pyelonephritis Surgical History Surgical History Failed CABG (coronary artery bypass graft) Family History Family History Mother Cerebrovascular accident Family history of diabetes mellitus in first degree relative Patient's mother is Sibling Family history of chronic obstructive pulmonary disease Family history of diabetes mellitus in first degree relative Father Patient's father is Social History Social History Smoking status: Never smoker Alcohol intake: never Exam Narrative: Exam Narrative: GENERAL: Well-appearing, well-nourished, and in no acute distress. HEAD: Normocephalic, atraumatic. EYES: PERRLA and EOMI. ENT: Nares clear, no rhinorrhea or epistaxis. Mucous membranes moist. NECK: Supple. CHEST: Clear to auscultation. No respiratory distress. Several small open ulcers present on the chest wall the one in the middle of the sternum with bleeding. HEART: Regular rate and rhythm. No murmur heard. Normal peripheral pulses. ABDOMEN: Soft, nontender, nondistended, normal active bowel sounds. EXTREMITIES: Normal range
[2021-04-16 15:37] VITALS: BP 157/81; PULSE 81; RESP 14; O2SAT 98
== END 2021-04-16 15:39 | disposition home or self-care (01) ==
PROVIDERS: Emergency Provider Family Medicine; PCP Internal Medicine
DX: T81.89XA Other complications of procedures, not elsewhere classified, initial encounter (principal); E87.6 Hypokalemia; I10 Essential (primary) hypertension; E11.9 Type 2 diabetes mellitus without complications; I25.10 Atherosclerotic heart disease of native coronary artery without angina pectoris; E27.40 Unspecified adrenocortical insufficiency; E23.0 Hypopituitarism; R91.8 Other nonspecific abnormal finding of lung field; Z79.4 Long term (current) use of insulin
CPT/HCPCS: 36415; 71046; 80048; 82948; 83605; 85025; 85610; 96365; 96366; 99284; A9270; J3480

== ENCOUNTER 2021-05-19 10:46 | Outpatient (CLI) | payer MEDICARE, SELFPAY ==
[2021-05-19 12:08] LABS: Anion Gap 6 mmol/L (8-16); Blood Urea Nitrogen 12 mg/dL (7-17); Calcium 9.2 mg/dL (8.4-10.2); Carbon Dioxide 27 mmol/L (22-30); Chloride 101 mmol/L (98-107); Estimated Glomerular Filt Rate > 60; Glucose 48 mg/dL (65-105); Potassium 3.7 mmol/L (3.4-5.0); Sodium 134 mmol/L (137-145)
== END 2021-05-19 10:47 | disposition home or self-care (01) ==
PROVIDERS: PCP Internal Medicine; Visit Provider Nurse Practitioner
DX: E87.6 Hypokalemia (principal); N39.0 Urinary tract infection, site not specified
CPT/HCPCS: 36415; 80048

== ENCOUNTER 2021-05-20 12:54 | Outpatient (NON) | payer MEDICARE, SELFPAY ==
[2021-05-20 13:30] LABS: Add Urine Microscopic? YES; Appearance Urine Clear (Clear); Bilirubin Urine Negative (Negative); Blood Urine Negative (Negative); Color Urine Yellow (Yellow); Glucose Urine UA Negative (Negative); Hyaline Casts Urine 15-19 /lpf; Ketones Urine Negative (Negative); Leukocyte Esterase Ur Trace LEU/UL (Negative); Mucus Urine Rare /lpf; Nitrate Urine Negative (Negative); Protein Urine Negative (Negative); RBC Urine 0-2 /hpf (0-2); Specific Grav Ur 1.011 (1.001-1.035); Squamous Epithelial Cell Urine Occasional /hpf (Few); Urobilinogen Urine Negative mg/dL (<2.0)
== END 2021-05-20 12:55 | disposition home or self-care (01) ==
PROVIDERS: PCP Internal Medicine; Visit Provider Nurse Practitioner
DX: N39.0 Urinary tract infection, site not specified (principal)
CPT/HCPCS: 81001

== ENCOUNTER 2021-06-02 13:02 | Outpatient (CLI) | payer MEDICARE, SELFPAY ==
--- NOTE | ~2021-06-02 | DEXA_ITS ---
Bone Density Report Name: Darlyn Vazquez Age: 70 Sex: Female Ethnicity: White Date of : 1950 Indication: osteopenia; history of glucocorticoids; prior fracture; hysterectomy; postmenopausal Referring Provider: Katrina Lujan Study: Bone densitometry was performed. Exam Date: June 02, 2021 Accession number: [id number] Bone Density: Region BMD T-score Z-score Classification AP Spine (L1-L4) 0.768 -2.5 -0.4 Osteoporosis Femoral Neck (Left) 0.646 -1.8 0.0 Osteopenia Total Hip (Left) 0.714 -1.9 -0.4 Osteopenia Total Hip Bilateral Avg 0.747 -1.6 -0.1 Osteopenia Femoral Neck (Right) 0.682 -1.5 0.3 Osteopenia Total Hip (Right) 0.779 -1.3 0.2 Osteopenia World Health Organization criteria for BMD impression classify patients as: Normal (T-score at or above -1.0), Osteopenia (T-score between -1.0 and -2.5), or Osteoporosis (T-score at or below -2.5). 10-year Fracture Risk: FRAX not reported because: Some T-score for Spine Total or Hip Total or Femoral Neck at or below -2.5 Previous Exams: Region Exam Age BMD T-score BMD Change BMD Change Date g/cm2 vs Baseline vs Previous AP Spine(L1-L4) 06/02/2021 70 0.768 -2.5 -0.047(-5.7%)* -0.047(-5.7%)* 03/15/2019 68 0.815 -2.1 Total Hip(Left) 06/02/2021 70 0.714 -1.9 -0.042(-5.6%)* -0.042(-5.6%)* 03/15/2019 68 0.756 -1.5 Total Hip(Right) 06/02/2021 70 0.779 -1.3 0.071(10.1%)* 0.071(10.1%)* 03/15/2019 68 0.708 -1.9 *Denotes significance at 95% confidence level, LSC for AP Spine = 0.022 g/cm2, LSC for Total Hip = 0.027 g/cm2 Clinical Information Provided by Patient: Has had a low trauma fracture Has taken Glucocorticoids Has used the following medications: Vitamin D, Calcium Has the following medical conditions: Hysterectomy Patient maximum height was 62 Menopause Age: 28 No regular weight bearing exercise Onset of menses at age 15 Number of children 3 Impression: The patient has established osteoporosis, based on the Total Spine T-score and the existence of a prior fracture. The patient has risk factors, including: previous fracture, history of glucocorticoid therapy. The BMD for the AP Spine(L1-L4) decreased, changing by -5.7% since the last DXA exam. The BMD for the Total Hip(Left) decreased, changing by -5.6% since the last DXA exam. Discussion: HIGH RISK OF FRACTURE. BONE DENSITY IS UNDESIRABLY LOW AT ONE OR MORE SKELETAL SITES, CONSISTENT WITH POSTMENOPAUSAL OSTEOPOROSIS. This patient's [place]
== END 2021-06-02 13:03 | disposition home or self-care (01) ==
LOC: ANHIMG 13:03
PROVIDERS: PCP Internal Medicine; Visit Provider Internal Medicine Endocrinology, Diabetes & Metabolism
DX: M85.851 Other specified disorders of bone density and structure, right thigh (principal); M85.852 Other specified disorders of bone density and structure, left thigh; R79.89 Other specified abnormal findings of blood chemistry; Z78.0 Asymptomatic menopausal state; M81.0 Age-related osteoporosis without current pathological fracture
CPT/HCPCS: 77080

== ENCOUNTER 2021-07-26 10:08 | Outpatient (CLI) | payer MEDICARE, SELFPAY ==
[2021-07-26 10:27] LABS: Basophils Percent Auto 0.3 % (0.2-1.2); Eosinophils Absolute Auto 0.2 K/mm3 (0-0.3); Eosinophils Percent Auto 1.8 % (0-4.4); Hematocrit 34.1 % (37.0-47.0); Hemoglobin 10.8 g/dL (12.0-15.0); Immature Granulocyte Absolute 0.08 K/mm3 (0.00-0.031); Immature Granulocyte Percent A 0.9 % (0-0.5); Lymphocytes Absolute Auto 3.79 K/mm3 (0.9-3.2); Lymphocytes Percent Auto 41.7 % (18.3-44.2); Mean Corpuscular HGB Conc 31.7 g/dl (32-36); Mean Platelet Volume 9.7 fl (7.4-10.4); Monocytes Absolute Auto 0.8 K/mm3 (0.1-0.6); Monocytes Percent Auto 8.6 % (2.6-8.5); Neutrophils Absolute Auto 4.3 K/mm3 (1.3-6.7); Neutrophils Percent Auto 46.7 % (45.5-73.1); Platelet Count Result 159 k/mm3 (150-375); Red Blood Count 4.16 M/mm3 (4.2-5.4); Red Cell Distribution Width 15.3 % (11.5-14.5); White Blood Count 9.1 K/mm3 (4.5-10.0)
[2021-07-26 10:39] LABS: Cholesterol 128 mg/dL (0-200); HDL Direct 57 mg/dL; Triglycerides 134 mg/dL (<150)
[2021-07-26 10:51] LABS: LDL Cholesterol Direct 41 mg/dL
[2021-07-26 11:04] LABS: Iron 43 ug/dL (37-170)
[2021-07-26 11:13] LABS: Percent Iron Saturation 14 % (20-50)
[2021-07-26 11:29] LABS: Vitamin B12 > 1000.0 pg/mL (239-931)
[2021-07-26 14:21] LABS: Vitamin D 25 Hydroxy 62.7 ng/mL
== END 2021-07-26 10:09 | disposition home or self-care (01) ==
LOC: ANHLAB 10:12
PROVIDERS: PCP Internal Medicine; Visit Provider Internal Medicine
DX: D50.9 Iron deficiency anemia, unspecified (principal); E78.5 Hyperlipidemia, unspecified; E53.8 Deficiency of other specified B group vitamins; E55.9 Vitamin D deficiency, unspecified
CPT/HCPCS: 36415; 80061; 82306; 82607; 83540; 83550; 85025

== ENCOUNTER 2021-07-27 10:40 | Emergency (ER) | payer MEDICARE, SELFPAY ==
--- NOTE | ~2021-07-27 | CT_ITS ---
EXAMINATION: CT abdomen pelvis w con EXAM DATE: 07/27/2021 11:38 INDICATION: Abnormal liver function tests. Vomiting and fever. TECHNIQUE: Spiral CT of the abdomen and pelvis was performed following intravenous injection of 100 m L Omnipaque 350. Axial, coronal and sagittal images of the abdomen and pelvis were reviewed. The do se-length product (DLP) for this examination was 331.97 mGy-cm. The exposure was tailored according to patient size (auto mA exposure control), and iterative reconstruction (ASIR) was used as additiona l dose reduction technique. Comparison is made to prior examination from 11/18/2020. FINDINGS: The liver, spleen, adrenal glands and pancreas are unremarkable. There are cholecystectomy clips. Portal and splenic veins are patent. Kidneys enhance symmetrically. There is no hydronephr osis. The uterus is not identified and has likely been surgically resected. The bladder is unremar kable. There is no retroperitoneal or pelvic lymphadenopathy. The appendix is normal. The stomach and small bowel are unremarkable. There is expected amount of c olonic stool. No free intraperitoneal gas. The heart is normal in size. There are no pericardial or pleural effusions. The lung bases are unremarkable. There are no osteoblastic or osteolytic les ions identified. IMPRESSION: 1. No acute intra-abdominal findings. Reviewed, dictated and finalized at location B.
[2021-07-27 10:42] VITALS: BP 111/69; PULSE 113; RESP 20; TEMP 36.6; O2SAT 97
[2021-07-27 10:54] LABS: Basophils Absolute Auto 0.1 K/mm3 (0.0-0.1); Basophils Percent Auto 0.4 % (0.2-1.2); Eosinophils Absolute Auto 0.1 K/mm3 (0-0.3); Eosinophils Percent Auto 0.8 % (0-4.4); Hematocrit 42.1 % (37.0-47.0); Hemoglobin 13.6 g/dL (12.0-15.0); Immature Granulocyte Absolute 0.11 K/mm3 (0.00-0.031); Immature Granulocyte Percent A 0.9 % (0-0.5); Lymphocytes Absolute Auto 5.05 K/mm3 (0.9-3.2); Lymphocytes Percent Auto 42.8 % (18.3-44.2); Mean Corpuscular HGB Conc 32.3 g/dl (32-36); Mean Corpuscular Hemoglobin 26.1 pg (26-34); Mean Corpuscular Volume 80.7 fl (80-100); Mean Platelet Volume 10.3 fl (7.4-10.4); Monocytes Absolute Auto 1.5 K/mm3 (0.1-0.6); Monocytes Percent Auto 12.4 % (2.6-8.5); Neutrophils Percent Auto 42.7 % (45.5-73.1); Platelet Count Result 120 k/mm3 (150-375); Red Blood Count 5.22 M/mm3 (4.2-5.4); Red Cell Distribution Width 15.5 % (11.5-14.5); White Blood Count 11.8 K/mm3 (4.5-10.0)
[2021-07-27 11:05] VITALS: BP 110/64; PULSE 99; RESP 18; O2SAT 96
[2021-07-27 11:06] LABS: Alanine Aminotransferase 104 U/L (4-35); Albumin Level 3.8 g/dL (3.5-5.1); Alkaline Phosphatase 162 U/L (38-126); Anion Gap 8 mmol/L (8-16); Aspartate Amino Transferase 184 U/L (14-36); Bilirubin,Total 1.8 mg/dL (0.2-1.3); Blood Urea Nitrogen 14 mg/dL (7-17); Carbon Dioxide 26 mmol/L (22-30); Chloride 111 mmol/L (98-107); Estimated CRCL calculation 40 ml/min; Estimated Glomerular Filt Rate > 60; Glucose 131 mg/dL (65-110); Lipase 43 U/L (23-300); Potassium 3.6 mmol/L (3.4-5.0); Sodium 145 mmol/L (137-145)
[2021-07-27] MEDS: ONDANSETRON INJ 4 MG/2 ML VIAL 8 MG IV PUSH (11:06)
--- NOTE | 2021-07-27 11:55 | ED.GENADULT ---
HPI - General Adult General Chief complaint: Nausea/Vomiting/Diarrhea Stated complaint: N/V - fever Time Seen by Provider: 07/27/21 11:11 Source: patient History of Present Illness HPI narrative: Patient is a 71 y/o female complaining of vomiting and fever since last night. She states that she vomited at least 7 times. She vomited food particles and liquid. There is no known alleviating or exacerbating factor. She also had a fever of 101.2 and back pain. She denies any diarrhea or dysuria. Related Data Home Medications Medication Instructions Recorded Confirmed gabapentin 300 mg capsule 300 mg PO DAILY 12/25/19 07/09/21 sertraline 100 mg tablet 100 mg PO DAILY tablet 12/25/19 07/09/21 carbidopa 25 mg-levodopa 100 mg 2 tablet PO TID 12/31/19 07/09/21 tablet cholecalciferol (vitamin D3) 25 25 mcg PO DAILY 07/22/20 07/09/21 mcg (1,000 unit) capsule omega-3 fatty acids 1,000 mg 1,000 mg PO DAILY 12/07/20 07/09/21 capsule cyanocobalamin (vitamin B-12) 1,000 mcg PO DAILY 03/05/21 07/09/21 1,000 mcg capsule quetiapine 25 mg PO BID 04/16/21 07/09/21 Allergies Allergy/AdvReac Type Severity Reaction Status Date / Time metformin Allergy Unknown breathing Verified 07/27/21 10:59 problems Sulfa (Sulfonamide Allergy Unknown break out Verified 07/27/21 10:59 Antibiotics) Review of Systems Constitutional: Constitutional: Denies chills, Reports fever(s), Denies headache(s) and Denies weakness Eyes: Eyes: Denies blurry vision ENT: Denies headache(s) and Denies neck pain Cardiovascular: Cardiovascular: Denies chest pain and Denies dyspnea Respiratory: Respiratory: Denies cough and Denies dyspnea Gastrointestinal: Gastrointestinal: Denies abdominal pain, Denies diarrhea, Reports nausea and Reports vomiting Genitourinary: Genitourinary: Denies hematuria and Denies dysuria Musculoskeletal: Musculoskeletal: Reports back pain and Denies neck pain Neurologic: Denies headache(s) and Denies weakness [facility] Past Medical History Medical History Adrenal insufficiency Diabetes mellitus with hyperglycemia Hypopituitarism Hypothyroidism, unspecified Pituitary deficiency Positive colorectal cancer screening using Cologuard test Pyelonephritis Surgical History Surgical History Failed CABG (coronary artery bypass graft) Family History Family History Mother Cerebrovascular accident Family history of diabetes mellitus in first degree relative Patient's mother is Sibling Family history of chronic obstructive pulmonary disease Family history of diabetes mellitus in first degree relative Father Patient's father is Social History Social History Smoking status: Never smoker Alcohol intake: never Exam Const: General: no acute distress Orientation/consciousness: oriented to person, oriented to place, oriented to time and patient oriented x3 HENMT: Head: normocephalic Ears: external ears normal General nose exam: Normal external nose present Eyes: General: appearance normal, both eyes and all related structures Conjunctivae: conjunctivae normal Neck: Neck: normal visual inspection and full ROM Chest: Chest palpation & inspection: normal inspection of the chest and no tenderness Resp: Effort & Inspection: normal respiratory effort Auscultation: clear to auscultation bilaterally Cardio: Rate: regular rate Rhythm: regular rhythm GI: GI Palp: No abdominal tenderness and Yes Soft to palpation Skin: General skin exam: normal color and turgor normal Neuro: General: oriented to person, oriented to place, oriented to time and patient oriented x3 Cognition (Neuro): normal cognition Extrem: General: normal to inspection, full ROM and n
[2021-07-27 12:31] LABS: Add Urine Microscopic? YES; Appearance Urine Clear (Clear); Bacteria Urine Trace /hpf; Bilirubin Urine Negative (Negative); Blood Urine Negative (Negative); Color Urine Yellow (Yellow); Glucose Urine UA Negative (Negative); Ketones Urine Negative (Negative); Leukocyte Esterase Ur Negative LEU/UL (Negative); Nitrate Urine Negative (Negative); Protein Urine 1+ mg/dL (Negative); Squamous Epithelial Cell Urine Occasional /hpf (Few); Transitional Epi Cells Urine Rare /hpf (None Seen)
[2021-07-27 12:33] LABS: Specific Grav Ur 1.032 (1.001-1.035)
[2021-07-27] MEDS: SODIUM CHLORIDE 0.9% IV 1,000 ML 999 ML IV CONT (12:35)
[2021-07-27 15:22] LABS: Hepatitis B Surface Antigen Negative (Negative)
[2021-07-27 15:27] LABS: HAV RESULT Negative (Negative); Hepatitis B Core IgM Result Negative (Negative)
[2021-07-27 15:39] LABS: Hepatitis C Virus Antibody Negative (Negative)
[2021-07-27 15:43] VITALS: BP 134/88; PULSE 80; RESP 16; O2SAT 100
[2021-07-27] MEDS: ACETAMINOPHEN 325 MG TABLET 650 MG PO (16:32)
[2021-07-27 18:05] VITALS: BP 124/85; PULSE 75; RESP 16; O2SAT 100
== END 2021-07-27 18:06 | disposition home or self-care (01) ==
PROVIDERS: Emergency Medicine; Emergency Provider Emergency Medicine; PCP Internal Medicine
DX: R11.2 Nausea with vomiting, unspecified (principal); M54.9 Dorsalgia, unspecified; E11.9 Type 2 diabetes mellitus without complications; E03.9 Hypothyroidism, unspecified; Z79.899 Other long term (current) drug therapy
CPT/HCPCS: 36415; 74177; 80053; 80074; 81001; 83690; 85025; 87086; 87088; 96361; 96374; 99284; A9270; J2405; J7030; Q9967

== ENCOUNTER 2021-08-23 09:39 | Outpatient (CLI) | payer MEDICARE, SELFPAY ==
--- NOTE | ~2021-08-23 | NM_ITS ---
EXAM: NM gastric emptying study DATE: 08/23/2021 14:30 INDICATION: Nausea and vomiting TECHNIQUE: A gastric emptying study was performed using the methodology of Bryant MILTON, et al. J Nucl Med 2007; 48:568-572. The patient was given a meal consisting of 2 scrambled eggs labeled with 0.810 mCi Tc-99m sulfur colloid, 2 slices of toast, two packages of jam, and approximately 120 mL of water . Simultaneous anterior and posterior 1-min images of the abdomen were obtained with the patient supi ne at multiple time points over a total period of 4 hours. The geometric mean of anterior and posteri or views was determined, and the percentage retention was calculated for each time point. COMPARISON: None. FINDINGS: Gastric retention of the radiotracer-labeled meal was 80%, 70%, and 31% at the 1-hour, 2-hour, and 4- hour time points, respectively. With this technique, apparent rapid gastric emptying is suggested by <30% gastric retention at 1 hour. Delayed gastric emptying is defined by gastric retention of >90% at 1 hour, >60% retention at 2 hours, or >10% retention at 4 hours. IMPRESSION: 1. Delayed gastric emptying. Reviewed, dictated and finalized at location A.
== END 2021-08-23 09:40 | disposition home or self-care (01) ==
LOC: ANHIMG 09:41
PROVIDERS: PCP Internal Medicine; Visit Provider Internal Medicine
DX: R11.2 Nausea with vomiting, unspecified (principal); E11.65 Type 2 diabetes mellitus with hyperglycemia; K30 Functional dyspepsia
CPT/HCPCS: 78264; A9541

== ENCOUNTER 2021-09-08 01:59 | Day surgery (SDC) | payer MEDICARE, SELFPAY ==
[2021-08-30 13:14] VITALS: BMI 24.2
--- NOTE | 2021-09-08 09:15 | WPDANESEPPF ---
Anes - Initial Pre Proc Eval Procedure: Operation Date: 09/08/21 10:30 Proposed Procedures p Esophagogastroduodenoscopy - Palmer Dudley MD Date/Time: 09/08/21 09:15 Surgeon: Palmer Dudley MD Pre Op Diagnosis: dysphagia Patient Data Age: 71 Gender: F Height: 1.57 m Weight: 60 kg Allergies Allergy/AdvReac Type Severity Reaction Status Date / Time metformin Allergy Mild breathing Verified 09/08/21 09:20 problems Sulfa (Sulfonamide Allergy Mild break out Verified 09/08/21 09:20 Antibiotics) Home Medications Medication Instructions Recorded Confirmed Type lancets 32 gauge #400 each 12/09/19 08/18/21 Rx blood-glucose meter #1 each 12/16/19 08/18/21 Rx gabapentin 300 mg capsule 300 mg PO DAILY 12/25/19 08/30/21 History sertraline 100 mg tablet 100 mg PO DAILY tablet 12/25/19 08/30/21 History carbidopa 25 mg-levodopa 100 mg 2 tablet PO TID 12/31/19 08/30/21 History tablet cholecalciferol (vitamin D3) 25 25 mcg PO DAILY 07/22/20 08/30/21 History mcg (1,000 unit) capsule lancets 30 gauge See Rx Instructions .ROUTE 10/19/20 08/18/21 Rx .COMPLEX #300 ea insulin syringe-needle U-100 1 mL #500 ea 10/20/20 08/18/21 Rx 30 gauge x 1/2 blood sugar diagnostic #400 ea 11/12/20 08/18/21 Rx omega-3 fatty acids 1,000 mg 1,000 mg PO BID 12/07/20 08/30/21 History capsule pen needle, diabetic 32 gauge x #400 ea 01/04/21 08/18/21 Rx 5/32 isosorbide mononitrate 60 mg 60 mg PO DAILY #90 tablet 02/01/21 08/30/21 Rx tablet,extended release 24 hr cyanocobalamin (vitamin B-12) 1,000 mcg PO DAILY 03/05/21 08/30/21 History 1,000 mcg capsule hydrocortisone 20 mg tablet 20 mg PO DAILY #90 tablet 03/09/21 08/30/21 Rx levothyroxine 88 mcg tablet 88 mcg PO DAILY #90 tablet 03/09/21 08/30/21 Rx rosuvastatin 20 mg tablet 20 mg PO DAILY #90 tablet 03/17/21 08/30/21 Rx quetiapine 25 mg PO TID 04/16/21 08/30/21 History propranolol 20 mg tablet 20 mg PO DAILY #90 tablet 04/19/21 08/30/21 Rx oxybutynin chloride 10 mg See Rx Instructions .ROUTE 05/10/21 08/30/21 Rx tablet,extended release 24 hr .COMPLEX #90 tablet tramadol 50 mg tablet 50 mg PO Q6H PRN #90 tablet 05/14/21 08/30/21 Rx clopidogrel 75 mg tablet 75 mg PO DAILY #90 tablet 05/26/21 08/30/21 Rx furosemide 40 mg tablet 40 mg PO DAILY #90 tablet 05/26/21 08/30/21 Rx insulin glargine 100 unit/mL (3 10 unit SUBCUT QPM 90 Days #9 ml 06/23/21 08/30/21 Rx mL) subcutaneous pen insulin lispro 100 unit/mL 3 unit SUBCUT TID #15 ml 06/23/21 08/30/21 Rx subcutaneous pen ondansetron HCl 4 mg tablet 4 mg PO Q8H PRN #30 tablet 08/06/21 08/30/21 Rx potassium chloride 20 mEq 20 meq PO BID #180 tablet 08/06/21 08/30/21 Rx tablet,extended release desmopressin 0.1 mg PO TID 08/30/21 08/30/21 History Patient hx anesthesia problems: none Family hx anesthesia problems: none Results Review: All pre-operative results and documents have been reviewed as part of the pre-operative evaluation. [facility] Past Medical History Medical History (Updated 09/08/21 @ 09:16 by Layo Gutiérrez MD) Adrenal insufficiency Adrenal insufficiency Central hypothyroidism Chronic kidney disease, stage 3 (moderate) Craniopharyngioma Depression Diabetes insipidus Diabetes mellitus Diabetes mellitus with hyperglycemia Diabetic gastroparesis Essential hypertension Frequent falls Hyperlipidemia Hypopituitarism Hypothyroidism, unspecified Neurodermatitis Osteopenia Osteopenia Panhypopituitarism Parkinsons disease Pituitary deficiency Pituitary insufficiency Positive colorectal cancer screening using Cologuard test Premature atrial contractions Pyelonephritis Type 2 diabetes mellitus with hyperglycemia Surgical History Surgical History (Updated 09/08/21 @ 09:16 by Layo Gutiérrez MD) Failed CABG (coronary artery bypass graft) H/O heart bypass surgery Family History Family History Tracey
[2021-09-08 09:22] VITALS: BP 196/80; PULSE 56; RESP 18; TEMP 36.4; O2SAT 97
--- NOTE | 2021-09-08 09:25 | SUR.PREOP ---
DR SMITH NOTIFIED OF PT'S VITAL SIGNS, BLOOD PRESSURE 196/80, HEARTRATE 56. NO NEW ORDERS
[2021-09-08] MEDS: LACTATED RINGERS 1,000 ML 150 ML IV CONT (09:33)
[2021-09-08 09:38] LABS: Glucose Point of Care 78 mg/dl (65-105)
--- NOTE | 2021-09-08 10:14 | WPDHPUPDATE1 ---
History and Physical Update Update Date/Time: 09/08/21 10:14 History and Physical has been reviewed, including an updated exam of the patient. There are NO changes in the patient's condition. Risks, benefits, and alternatives have been discussed and questions answered. Patient agrees to proceed with procedure.
[2021-09-08] MEDS: BENZOCAINE (*SP) 60 ML SPRAY CAN (HURRICAINE) 1 SPRAY MUCOUS MEM (10:19)
[2021-09-08 10:34] VITALS: BP 153/79; PULSE 51; RESP 19; O2SAT 100
[2021-09-08 10:44] VITALS: BP 160/93; PULSE 51; RESP 21; O2SAT 97
[2021-09-08 10:51] LABS: Glucose Point of Care 70 mg/dl (65-105)
[2021-09-08 10:54] VITALS: BP 208/77; PULSE 55; RESP 18; O2SAT 100
== END 2021-09-08 11:15 | disposition home or self-care (01) ==
PROVIDERS: PCP Internal Medicine; Visit Provider Internal Medicine Gastroenterology
PROC: 0DJ08ZZ Inspection of Upper Intestinal Tract, Via Natural or Artificial Opening Endoscopic (ICD-10-PCS; CPT 43235; principal; 2021-09-08 10:30)
DX: R13.10 Dysphagia, unspecified (principal); K20.80 Other esophagitis without bleeding; I12.9 Hypertensive chronic kidney disease with stage 1 through stage 4 chronic kidney disease, or unspecified chronic kidney disease; N18.30 Chronic kidney disease, stage 3 unspecified; E11.22 Type 2 diabetes mellitus with diabetic chronic kidney disease; E11.43 Type 2 diabetes mellitus with diabetic autonomic (poly)neuropathy; K31.84 Gastroparesis; E78.5 Hyperlipidemia, unspecified; E03.9 Hypothyroidism, unspecified; G20 Parkinson's disease; E23.0 Hypopituitarism; M85.80 Other specified disorders of bone density and structure, unspecified site; F32.9 Major depressive disorder, single episode, unspecified; E27.40 Unspecified adrenocortical insufficiency; Z79.4 Long term (current) use of insulin; Z79.02 Long term (current) use of antithrombotics/antiplatelets; Z95.1 Presence of aortocoronary bypass graft
CPT/HCPCS: 43239; 43450; 82948; 88305; J7120

== ENCOUNTER 2021-09-14 18:36 | Inpatient (IN) | payer MEDICARE, SELFPAY ==
[2021-09-14] VITALS (10 sets, daily range): BP systolic 76–154; BP diastolic 47–92; PULSE 53–83; RESP 16–20; TEMP 35.5–36.7; O2SAT 98–100; BMI 25.0
--- NOTE | ~2021-09-14 | US_ITS ---
EXAMINATION:US venous doppler LE BI INDICATION:Lower extremity pain TECHNIQUE: Multiple grayscale, color flow and Doppler images of the right and left lower extremity de ep venous systems were obtained and reviewed. COMPARISON:No prior studies for comparison. FINDINGS: The common femoral, superficial femoral and popliteal veins demonstrate normal respiratory variation, augmentation and compressibility. Color flow is also seen within the posterior tibial, pe roneal, greater saphenous and profunda veins. IMPRESSION: 1: No lower extremity deep venous thrombosis. Reviewed, dictated and finalized at location B.
--- NOTE | ~2021-09-14 | CT_ITS ---
EXAMINATION: CT abdomen pelvis w con DATE: 09/18/2021 12:10 INDICATION: Left flank pain, possible pyelonephritis TECHNIQUE: Computed tomography (CT) of the abdomen and pelvis was performed with 100 cc Omnipaque 350 intravenous contrast. Automated exposure control and iterative reconstruction technique were employe d. Exam dose: 375.13 mGy-cm total exam DLP. COMPARISON: 07/27/2021 CT abdomen pelvis FINDINGS: Bilateral dependent lower lobe atelectasis, right greater than left. Elevated right diaphragm. The liver is partially excluded from this examination as result. Status post cholecystectomy. The included portion of the liver as well as the spleen are without evid ence of space-occupying mass lesion. No splenomegaly. No bile duct or pancreatic duct dilatation. [place] creatic atrophy but no calcification or mass lesion. Normal morphology of the adrenal glands. Occasional very small renal cysts. No suspicious renal space occupying mass lesion is detected. There is nonspecific mild left perinephric fluid. There is normal enhancement of the left kidney. No urina ry tract calculus or hydroureteronephrosis. There is atherosclerotic calcification of the abdominal aorta but no aneurysm. No intraperitoneal or retroperitoneal or pelvic mass lesion or adenopathy or ascites. Normal appendix. Mild colonic diverticulosis; no CT evidence of diverticulitis. No bowel obstruction, bowel wall thick ening, pneumatosis or intraperitoneal free air. Status post hysterectomy. 2.6 cm right ovarian cyst, stable since 07/27/2021. The urinary bladder is u nremarkable. No suspicious osteolytic or osteoblastic lesions. IMPRESSION: Stable 2.6 cm right ovarian cyst since 07/27/2021 Mild diverticulosis of the colon Occasional very small renal cysts Status post cholecystectomy Reviewed, dictated and finalized at [facility]. Reviewed, dictated and finalized at [facility].
--- NOTE | ~2021-09-14 | XR_ITS ---
EXAMINATION: XR chest 1V portable INDICATION: Cough TECHNIQUE: Portable AP chest at 0922 hours COMPARISON: 04/16/2021 FINDINGS: The lung volumes are low. There is no pleural effusion or pneumothorax. There is mild atele ctasis of the right lung base. The heart size is normal. Mediastinal surgical clips are seen, likely from prior coronary artery bypass grafting. IMPRESSION: 1. Right basilar atelectasis. Reviewed, dictated and finalized at [facility].
--- NOTE | ~2021-09-14 | CT_ITS ---
EXAMINATION: CT brain wo con DATE: 09/15/2021 15:59 INDICATION: Blurred vision TECHNIQUE: Computed tomography (CT) of the head was performed without intravenous contrast. The dose- length product was 605.33 mGy-cm. Automated exposure control and iterative reconstruction technique w ere employed. COMPARISON: CT dated 11/16/2018 FINDINGS: No acute intracranial hemorrhage, infarction, mass or mass effect. No ventriculomegaly or m idline shift. Generalized atrophy. There are scattered mild periventricular and subcortical white mat ter changes, most likely related to small vessel ischemic disease (microangiopathy). Mild intracrania l atherosclerosis. There is craniotomy defect right parietal location. Paranasal sinuses and mastoids are pneumatized. IMPRESSION: 1. No acute intracranial abnormality. Reviewed, dictated and finalized at [facility].
--- NOTE | 2021-09-14 18:47 | ECG_ITS ---
Measurements Intervals [place] Rate: 69 P: 81 WV: 133 QRS: 45 QRSD: 88 T: 71 QT: 434 QTc: 467 Interpretive Statements SINUS RHYTHM WITH MARKED SINUS ARRHYTHMIA ATRIAL PREMATURE COMPLEX INCOMPLETE RIGHT BUNDLE BRANCH BLOCK BORDERLINE ECG Electronically Signed On 09-14-2021 20:13:08 CDT by Doc Lazaro D.O.
[2021-09-14 18:58] LABS: Glucose Point of Care 324 mg/dl (65-105)
[2021-09-14] MEDS: SODIUM CHLORIDE 0.9% IV 1,000 ML 999 ML IV CONT ×2 (19:13)
[2021-09-14 19:14] LABS: Basophils Percent Auto 0.4 % (0.2-1.2); Eosinophils Absolute Auto 0.1 K/mm3 (0-0.3); Eosinophils Percent Auto 0.8 % (0-4.4); Immature Granulocyte Absolute 0.09 K/mm3 (0.00-0.031); Lymphocytes Absolute Auto 2.51 K/mm3 (0.9-3.2); Mean Corpuscular HGB Conc 31.4 g/dl (32-36); Mean Corpuscular Volume 85.9 fl (80-100); Mean Platelet Volume 11.5 fl (7.4-10.4); Monocytes Absolute Auto 0.7 K/mm3 (0.1-0.6); Monocytes Percent Auto 7.8 % (2.6-8.5); Neutrophils Absolute Auto 5.6 K/mm3 (1.3-6.7); Platelet Count Result 184 k/mm3 (150-375); Red Blood Count 2.56 M/mm3 (4.2-5.4); Red Cell Distribution Width 14.5 % (11.5-14.5)
[2021-09-14 19:22] LABS: Hemoglobin 6.9 g/dL (12.0-15.0)
[2021-09-14 19:24] LABS: INR 1.1; Prothrombin Time 13.9 Seconds (11.1-14.7)
[2021-09-14 19:25] LABS: Alanine Aminotransferase 8 U/L (4-35); Albumin Level 3.5 g/dL (3.5-5.1); Alkaline Phosphatase 53 U/L (38-126); Anion Gap 8 mmol/L (8-16); Aspartate Amino Transferase 26 U/L (14-36); Bilirubin,Total 0.2 mg/dL (0.2-1.3); Blood Urea Nitrogen 33 mg/dL (7-17); Calcium 8.5 mg/dL (8.4-10.2); Carbon Dioxide 25 mmol/L (22-30); Chloride 106 mmol/L (98-107); Estimated CRCL calculation 40 ml/min; Estimated Glomerular Filt Rate > 60; Glucose 336 mg/dL (65-110); Partial Thromboplastin Time 25.3 SECONDS (22.3-36.8); Potassium 4.1 mmol/L (3.4-5.0); Sodium 139 mmol/L (137-145)
[2021-09-14] MEDS: PANTOPRAZOLE SODIUM IV 40 MG VIAL IV PUSH (19:34)
--- NOTE | 2021-09-14 19:47 | ED.GIBLEED ---
HPI - GI Bleed General Chief complaint: GI Bleed Stated complaint: sob, hyperglycemia, low bp Time Seen by Provider: 09/14/21 18:49 History of Present Illness HPI Narrative: Patient is a 71-year-old female who presents ER with weakness and dizziness. Began today. Associate with some shortness of breath when she is walking. Patient appears pale. Denies nausea or vomiting. She reports that she takes oral Plavix. She also notes that her blood sugar was in the 400s earlier today. She reports compliance with home medication. Patient had an EGD last week. She had an esophageal dilation. There is no esophagitis or gastric ulcerations noted on the scope. Related Data Home Medications Medication Instructions Recorded Confirmed gabapentin 300 mg capsule 300 mg PO DAILY 12/25/19 08/30/21 sertraline 100 mg tablet 100 mg PO DAILY tablet 12/25/19 08/30/21 carbidopa 25 mg-levodopa 100 mg 2 tablet PO TID 12/31/19 08/30/21 tablet cholecalciferol (vitamin D3) 25 25 mcg PO DAILY 07/22/20 08/30/21 mcg (1,000 unit) capsule omega-3 fatty acids 1,000 mg 1,000 mg PO BID 12/07/20 08/30/21 capsule cyanocobalamin (vitamin B-12) 1,000 mcg PO DAILY 03/05/21 08/30/21 1,000 mcg capsule quetiapine 25 mg PO TID 04/16/21 08/30/21 desmopressin 0.1 mg PO TID 08/30/21 08/30/21 Allergies Allergy/AdvReac Type Severity Reaction Status Date / Time metformin Allergy Mild breathing Verified 09/14/21 18:38 problems Sulfa (Sulfonamide Allergy Mild break out Verified 09/14/21 18:38 Antibiotics) Review of Systems Review of Systems: All systems reviewed & are unremarkable except as noted in HPI and below Constitutional: Constitutional: Reports chills, Reports fatigue, Denies fever(s) and Reports weakness ENT: Denies nasal congestion and Denies sore throat Cardiovascular: Cardiovascular: Denies chest pain, Denies rapid heart rate and Denies radiating jaw, neck or arm pain Respiratory: Respiratory: Denies cough, Reports dyspnea and Denies wheezing Gastrointestinal: Gastrointestinal: Denies abdominal pain, Denies diarrhea, Denies nausea and Denies vomiting Neurologic: Reports dizziness, Denies focal weakness and Denies numbness PMFSH Past Medical History Medical History (Updated 09/14/21 @ 20:45 by Alejo Gotti MD) Adrenal insufficiency Adrenal insufficiency Central hypothyroidism Chronic kidney disease, stage 3 (moderate) Craniopharyngioma Depression Diabetes insipidus Diabetes mellitus Diabetes mellitus with hyperglycemia Diabetic gastroparesis Essential hypertension Frequent falls Hyperlipidemia Hypopituitarism Hypothyroidism, unspecified Neurodermatitis Osteopenia Osteopenia Panhypopituitarism Parkinsons disease Pituitary deficiency Pituitary insufficiency Positive colorectal cancer screening using Cologuard test Premature atrial contractions Pyelonephritis Type 2 diabetes mellitus with hyperglycemia Surgical History Surgical History (Updated 09/08/21 @ 09:16 by Layo Gutiérrez MD) Failed CABG (coronary artery bypass graft) H/O heart bypass surgery Family History Family History Mother Cerebrovascular accident Family history of diabetes mellitus in first degree relative Patient's mother is Sibling Family history of chronic obstructive pulmonary disease Family history of diabetes mellitus in first degree relative Father Patient's father is Social History Social History Smoking status: Never smoker Second hand tobacco smoke exposure: No Alcohol intake: never Substance use: never Spiritual care concerns: No Exam Narrative: GENERAL: Chronically ill-appearing, well-nourished, and in no acute distress. HEAD: Normocephalic, atraumatic. EYES: PERRL and EOMI. pale conjunctiva ENT: Mucous membranes moist. CHEST: Clear to auscultation. No re
--- NOTE | 2021-09-14 22:19 | PM.IMHP ---
H&P: HPI History of Present Illness Date/Time: 09/14/21 22:19 Chief Complaint: Low blood pressure Narrative: Patient is a 71-year-old female who presents to the ER with weakness and dizziness that started since today. See also noted she had low blood pressure at home and also her blood sugar was running high in 400s. She hence came to the ER for further evaluation. She states that she had an EGD done last week for dysphagia. EGD showed normal mucosa with no ring or stricture or obvious esophagitis. Multiple biopsies were taken with the upper 3rd esophagus and lower 3rd of the esophagus. Of Rehan bougie dilatation was also performed empirically. Today her hemoglobin was noted to be 6.9 and 2 units of PRBCs getting transfused from the ER. She has also tested positive for fecal occult blood. She received IV Protonix. GI has been consulted from the ER for further evaluation. She states she is feeling better already since the transfusion has been started. She does take aspirin and Plavix for coronary artery disease. Review of Systems Review of Systems: - CONSTITUTIONAL: Denies weight loss, fever and chills. - HEENT: Denies changes in vision and hearing - RESPIRATORY: Denies SOB and cough. - CV: Denies palpitations and CP. - GI: Denies abdominal pain, nausea, vomiting and diarrhea. - : Denies dysuria and urinary frequency. - MSK: Denies myalgia and joint pain. - SKIN: Denies rash and pruritus. - NEUROLOGICAL: Denies headache and syncope. Reports generalized weakness - PSYCHIATRIC: Denies recent changes in mood. Denies anxiety and depression. All systems reviewed & are unremarkable except as noted in HPI and below Constitutional: Constitutional: Reports fatigue and Reports weakness Neurologic: Reports weakness Endocrine: Endocrine: Reports fatigue [facility] Past Medical History Medical History (Updated 09/14/21 @ 20:45 by Alejo Gotti MD) Adrenal insufficiency Adrenal insufficiency Central hypothyroidism Chronic kidney disease, stage 3 (moderate) Craniopharyngioma Depression Diabetes insipidus Diabetes mellitus Diabetes mellitus with hyperglycemia Diabetic gastroparesis Essential hypertension Frequent falls Hyperlipidemia Hypopituitarism Hypothyroidism, unspecified Neurodermatitis Osteopenia Osteopenia Panhypopituitarism Parkinsons disease Pituitary deficiency Pituitary insufficiency Positive colorectal cancer screening using Cologuard test Premature atrial contractions Pyelonephritis Type 2 diabetes mellitus with hyperglycemia Surgical History Surgical History (Updated 09/08/21 @ 09:16 by Layo Gutiérrez MD) Failed CABG (coronary artery bypass graft) H/O heart bypass surgery Family History Family History Mother Cerebrovascular accident Family history of diabetes mellitus in first degree relative Patient's mother is Sibling Family history of chronic obstructive pulmonary disease Family history of diabetes mellitus in first degree relative Father Patient's father is Social History Social History Smoking status: Never smoker Second hand tobacco smoke exposure: No Alcohol intake: never Substance use: never Gender identity (if verbalized by the patient): Female Sexual Orientation (if Verbalized by the Patient): Straight or Heterosexual Spiritual care concerns: No Meds Home Medications and Allergies Home Medications Medication Instructions Recorded Confirmed Type gabapentin 300 mg capsule 300 mg PO TID 12/25/19 09/14/21 History sertraline 100 mg tablet 100 mg PO DAILY tablet 12/25/19 09/14/21 History carbidopa 25 mg-levodopa 100 mg 2 tablet PO TID 12/31/19 09/14/21 History tablet cholecalciferol (vitamin D3) 25 25 mcg PO DAILY 07/22/20 09/14/21 History mcg (1,000 unit) capsule omega-3 fatty aci
--- NOTE | 2021-09-14 23:43 | PC.NURSE ---
This patient, Darlyn Vazquez, was admitted to 3 Medical Room 346-. Patient/family oriented to hospital policies and general routines including ID bracelet, bed and alarms, visiting hours, pain management, procedures, bathroom and other care routines, personal items, smoking policy, room service/diet, and visiting hours. Information on how to activate the Rapid Response Team has been discussed. Patient/Family are encouraged to report perceived risks to care and to ask questions if they do not understand what they are told or what they should do. First unit of blood infusing.
[2021-09-15] VITALS (19 sets, daily range): BP systolic 107–187; BP diastolic 40–87; PULSE 45–85; RESP 14–20; TEMP 35.7–36.8; O2SAT 95–100; BMI 25.0
[2021-09-15 03:50] LABS: Hematocrit 26.9 % (37.0-47.0); Hemoglobin 8.7 g/dL (12.0-15.0)
[2021-09-15] MEDS: SODIUM CHLORIDE 0.9% IV 1,000 ML 125 ML IV CONT (05:45)
[2021-09-15] MEDS: LEVOTHYROXINE SODIUM 88 MCG TABLET PO (05:45)
[2021-09-15 07:59] LABS: Glucose Point of Care 112 mg/dl (65-105)
[2021-09-15] MEDS: PANTOPRAZOLE SODIUM IV 40 MG VIAL IV PUSH ×2 (09:00→20:00)
[2021-09-15 09:28] LABS: Hematocrit 28.8 % (37.0-47.0); Hemoglobin 9.4 g/dL (12.0-15.0)
--- NOTE | 2021-09-15 10:28 | WPDGICN ---
Assessment and Plan Assessment and plan (1) Melena: Code(s): K92.1 - Melena Status: Acute Assessment and Plan: egd today, will assess source of bleeding continue with protonix for now monitor for more signs of bleeding (2) Acute blood loss anemia: Code(s): D62 - Acute posthemorrhagic anemia Status: Acute Assessment and Plan: keep hb above 7 protonix iv (3) Type 2 diabetes mellitus with hyperglycemia: Code(s): E11.65 - Type 2 diabetes mellitus with hyperglycemia Status: Acute (4) Panhypopituitarism: Code(s): E23.0 - Hypopituitarism Status: Acute Assessment and Plan: on hormonal replacement (5) Parkinsons disease: Code(s): G20 - Parkinson's disease Status: Acute (6) Colon polyps: Code(s): K63.5 - Polyp of colon Status: Acute Assessment and Plan: last colonoscopy 2019 because had positive cologuard, had TA polyps and will need next in 2022 GI Consult Note Consult date/time: 09/15/21 10:28 Reason for consult: acute blood loss anemia HPI: Darlyn Vazquez is a 71 year old female with 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 She also has parkinson's and using plavix. She came here after was feeling dizzy, noted one dark stool. ER evaluation found hb 6.9 (previously 13), given blood transfusion and admitted to hospital. Now she is feeling better and is npo status. Review of Systems Constitutional: Constitutional: Reports weakness Eyes: Eyes: Denies blurry vision ENT: Reports Normal hearing present Cardiovascular: Cardiovascular: Reports lightheadedness Respiratory: Respiratory: Denies cough Gastrointestinal: Gastrointestinal: Reports melena Genitourinary: Genitourinary: Denies hematuria Musculoskeletal: Musculoskeletal: Denies neck pain Integumentary/Breasts: Skin/Breast: Denies dry skin Neurologic: Denies numbness Psychiatric: Psychiatric: Reports no additional psychiatric complaints PMFSH Past Medical History Medical History (Updated 09/15/21 @ 15:55 by Palmer Dudley MD) Acute blood loss anemia Adrenal insufficiency Adrenal insufficiency Central hypothyroidism Chronic kidney disease, stage 3 (moderate) Craniopharyngioma Depression Diabetes insipidus Diabetes mellitus Diabetes mellitus with hyperglycemia Diabetic gastroparesis Essential hypertension Frequent falls Hyperlipidemia Hypopituitarism Hypothyroidism, unspecified Melena Neurodermatitis Osteopenia Osteopenia Panhypopituitarism Parkinsons disease Pituitary deficiency Pituitary insufficiency Positive colorectal cancer screening using Cologuard test Premature atrial contractions Pyelonephritis Type 2 diabetes mellitus with hyperglycemia Surgical History Surgical History (Updated 09/08/21 @ 09:16 by Layo Gutiérrez MD) Failed CABG (coronary artery bypass graft) H/O heart bypass surgery Family History Family History Mother Cerebrovascular accident Family history of diabetes mellitus in first degree relative Patient's mother is Sibling Family history of chronic obstructive pulmonary disease Family history of diabetes mellitus in first degree relative Father Patient's father is Social History Social History Smoking status: Never smoker Second hand tobacco smoke exposure: No Alcohol intake: never Substance use: never Gender identity (if verbalized by the patient): Female Sexual Orientation (if Verbalized by the Patient): Straight or Heterosexual Spiritual care concerns: No Meds Home Medications and Allergies Home Medications
[2021-09-15 12:15] LABS: Glucose Point of Care 131 mg/dl (65-105)
[2021-09-15] MEDS: LACTATED RINGERS 1,000 ML 150 ML IV CONT (14:07)
--- NOTE | 2021-09-15 14:21 | WPDANESEPPF ---
Anes - Initial Pre Proc Eval Procedure: Operation Date: 09/15/21 15:00 Proposed Procedures p Esophagogastroduodenoscopy - Palmer Dudley MD Date/Time: 09/15/21 14:21 Surgeon: Lilibeth Lai PA-C Pre Op Diagnosis: gi bleed/anemia Patient Data Age: 71 Gender: F Height: 1.57 m Weight: 61.9 kg Last Vital Signs Temp 36.6 C 09/15/21 14:03 Pulse 78 09/15/21 14:03 Resp 16 09/15/21 14:03 BP 187/78 H 09/15/21 14:03 Pulse Ox 97 09/15/21 14:03 Allergies Allergy/AdvReac Type Severity Reaction Status Date / Time metformin Allergy Mild breathing Verified 09/15/21 14:02 problems Sulfa (Sulfonamide Allergy Mild break out Verified 09/15/21 14:02 Antibiotics) Home Medications Medication Instructions Recorded Confirmed Type gabapentin 300 mg capsule 300 mg PO TID 12/25/19 09/14/21 History sertraline 100 mg tablet 100 mg PO DAILY tablet 12/25/19 09/14/21 History carbidopa 25 mg-levodopa 100 mg 2 tablet PO TID 12/31/19 09/14/21 History tablet cholecalciferol (vitamin D3) 25 25 mcg PO DAILY 07/22/20 09/14/21 History mcg (1,000 unit) capsule omega-3 fatty acids 1,000 mg 1,000 mg PO BID 12/07/20 09/14/21 History capsule cyanocobalamin (vitamin B-12) 1,000 mcg PO DAILY 03/05/21 09/14/21 History 1,000 mcg capsule levothyroxine 88 mcg tablet 88 mcg PO DAILY #90 tablet 03/09/21 09/14/21 Rx rosuvastatin 20 mg tablet 20 mg PO DAILY #90 tablet 03/17/21 09/14/21 Rx quetiapine 25 mg PO TID 04/16/21 09/14/21 History tramadol 50 mg tablet 50 mg PO Q6H PRN #90 tablet 05/14/21 09/14/21 Rx clopidogrel 75 mg tablet 75 mg PO DAILY #90 tablet 05/26/21 09/14/21 Rx furosemide 40 mg tablet 40 mg PO DAILY #90 tablet 05/26/21 09/14/21 Rx insulin glargine 100 unit/mL (3 10 unit SUBCUT QPM 90 Days #9 ml 06/23/21 09/14/21 Rx mL) subcutaneous pen insulin lispro 100 unit/mL 3 unit SUBCUT TID #15 ml 06/23/21 09/14/21 Rx subcutaneous pen ondansetron HCl 4 mg tablet 4 mg PO Q8H PRN #30 tablet 08/06/21 09/14/21 Rx potassium chloride 20 mEq 20 meq PO BID #180 tablet 08/06/21 09/14/21 Rx tablet,extended release desmopressin 0.1 mg PO TID 08/30/21 09/14/21 History isosorbide mononitrate 60 mg 60 mg PO DAILY #90 tablet 09/10/21 09/14/21 Rx tablet,extended release 24 hr hydrocortisone 20 mg tablet 20 mg PO BID #90 tablet 09/14/21 09/14/21 Rx oxybutynin chloride 10 mg PO DAILY 09/14/21 09/14/21 History Laboratory Tests 09/14/21 09/14/21 09/14/21 18:56 18:59 18:59 WBC 9.0 K/mm3 K/mm3 (4.5-10.0) RBC 2.56 M/mm3 L M/mm3 (4.2-5.4) Hgb 6.9 g/dL L* D g/dL (12.0-15.0) Hct 22.0 % L % (37.0-47.0) MCV 85.9 fl fl (80-100) MCH 27.0 pg pg (26-34) MCHC 31.4 g/dl L g/dl (32-36) RDW 14.5 % % (11.5-14.5) Plt Count 184 k/mm3 D k/mm3 (150-375) MPV 11.5 fl H fl (7.4-10.4) Immature Gran % (Auto) 1.0 % H % (0-0.5) Neut % (Auto) 62.0 % % (45.5-73.1) Lymph % (Auto) 28.0 % % (18.3-44.2) [place] % (Auto) 7.8 % % (2.6-8.5) Eos % (Auto) 0.8 % % (0-4.4) Baso % (Auto) 0.4 % % (0.2-1.2) Lymph # (Auto) 2.51 K/mm3 K/mm3 (0.9-3.2) [place] # (Auto) 0.7 K/mm3 H K/mm3 (0.1-0.6) Eos # (Auto) 0.1 K/mm3 K/mm3 (0-0.3) Baso # (Auto) 0.0 K/mm3 K/mm3 (0.0-0.1) Abs Immat Gran (auto) 0.09 K/mm3 H K/mm3 (0.00-0.031) Absolute Neuts (auto) 5.6 K/mm3 K/mm3 (1.3-6.7) Absolute Nucleated RBC 0.0 K/mm3 K/mm3 (0.0-0.012) Nucleated RBC % 0.0 % % (0.0-0.2) PT 13.9 Seconds Seconds (11.1-14.7) INR 1.1 APTT 25.3 SECONDS SECONDS (22.3-36.8) Sodium Potassium Chloride Carbon Dioxide Anion Gap BUN Creatinine Estim Creat Clear Calc Abida
--- NOTE | 2021-09-15 14:35 | PM.IMPN ---
Progress Note: A&P Assessment and Plan (1) Anemia: Code(s): D64.9 - Anemia, unspecified Status: Acute Assessment and Plan: 09/14/21 # Generalized weakness likely due to underlying GI bleed and hypotension. Order PT OT # hypotension resolved with transfusion and IV resuscitation in the ER hold blood pressure medication # occult GI bleed recent esophageal dilatation and multiple biopsies taken query bleeding from these biopsy sites. GI has been consulted for further evaluation and management. Will place on PPI b.i.d. hold aspirin Plavix # acute on chronic anemia hemoglobin of 6.9 transfused 2 unit PRBC PE. INR normal platelets normal. Her baseline hemoglobin 13.6 back in 07/27/2021. Recent EGD with normal finding however was dilated empirically. Pathology biopsies has been negative 09/15/21 Hgb today 9.4. Continue checking H/H q6 hr. GI consulted. Taking patient for scope today. Continue PPI BID and hold aspirin/plavix. (2) Occult GI bleeding: Code(s): R19.5 - Other fecal abnormalities Status: Acute Assessment and Plan: See above, anemia. (3) Type 2 diabetes mellitus with hyperglycemia: Code(s): E11.65 - Type 2 diabetes mellitus with hyperglycemia Status: Acute Assessment and Plan: Glucose today 131 and patient has been NPO. Pt currently on home dose of Lantus 10 units QHS. Will initiate sliding scale insulin, she states she is on 3 units of Humalog TID currently and her sugars have been in the 400s recently at home. Check A1c. Will continue to monitor. (4) Essential hypertension: Code(s): I10 - Essential (primary) hypertension Status: Acute Assessment and Plan: Presented to ED hypotensive 76/51. Improved s/p 2 units PRBC and IVF. Trending upward, per tech 172/87 but was not documented in EMR. Stopped IVF. She is still NPO at this time. Will resume home medications after her procedure if needed. (5) Hyperlipidemia: Code(s): E78.5 - Hyperlipidemia, unspecified Status: Acute Assessment and Plan: LFTs elevated in June. Will recheck in AM as well as hepatitis panel. Hold statin for now. 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 Continue levothyroxine. Additional Plan # DVT prophylaxis SCDs - ASA and Plavix held at this time # full code status Subjective Date/time seen: 09/15/21 14:35 71 yo female admitted for acute blood loss anemia and GI bleed. States she is feeling okay right now, having some chronic pain and would like her home meds (tramadol). Weakness, shortness of breath, and dizziness has improved significantly s/p 2 units PRBC, states I can breathe now. She is requesting ice chips but was informed she needs to remain NPO for her scope today. Additional complaints on ROS: -RLE pain/edema x 2 weeks -Acutely blurred vision R eye x 2 weeks, has no vision in her L eye which is chronic -chest pain, 2 episodes today, sharp in nature, intermittent lasting several seconds while resting in bed, resolved on their own. Review of Systems Review of Systems: General: Denies fevers, +fagitue Eyes: + blurred vision R eye x 2 weeks, no vision L eye chronic ENT: Denies nasal congestion or sore throat Respiratory: Denies cough, +shortness of breath Cardiovascular: + chest pain, + right lower extremity edema Gastrointestinal: +nausea, denies abdominal pain, vomiting, or diarrhea Genitourinary: +urinary incontinence chronic Musculoskeletal: + neck and back pain chronic, + RLE calf pain x2 weeks, RUE chronic pain/tingling Neurological: + headache chronic, + paraesthesias RUE chronic, no motor weakness Integumentary: Denies rash Exam Narrative: GENER
--- NOTE | 2021-09-15 15:22 | PCPTNOTE ---
Attempted PT eval, patient out of room for testing, will attempt tomorrow.
[2021-09-15 15:23] LABS: Glucose Point of Care 152 mg/dl (65-105)
[2021-09-15] MEDS: GABAPENTIN 300 MG CAPSULE PO (16:45)
[2021-09-15] MEDS: SERTRALINE HCL 50 MG TABLET 100 MG PO (16:46)
[2021-09-15] MEDS: CARBIDOPA/LEVODOPA 25/100 MG TABLET 2 TABLET PO (16:46)
[2021-09-15] MEDS: DESMOPRESSIN ACETATE 0.1 MG TABLET 0.05 MG PO (16:47)
[2021-09-15] MEDS: QUEtiapine FUMARATE 25 MG TABLET PO (16:47)
[2021-09-15] MEDS: POTASSIUM CHLORIDE 20 MEQ TABLET.ER PO (16:47)
[2021-09-15] MEDS: OMEGA 3 POLYUNSAT FATTY ACIDS 1 GM CAP PO (16:48)
[2021-09-15] MEDS: INSULIN GLARGINE (*BKC) 100 UNITS/ML 10 UNITS SUB-Q (17:06)
[2021-09-15 17:13] LABS: Glucose Point of Care 165 mg/dl (65-105)
[2021-09-15 17:18] LABS: Hematocrit 31.1 % (37.0-47.0); Hemoglobin 10.3 g/dL (12.0-15.0)
[2021-09-15 17:38] LABS: Troponin I 0.015 ng/mL (0.000-0.034)
[2021-09-15 20:05] LABS: Glucose Point of Care 185 mg/dl (65-105)
[2021-09-15 20:09] LABS: Troponin I < 0.012 ng/mL (0.000-0.034)
[2021-09-16] VITALS (10 sets, daily range): BP systolic 117–186; BP diastolic 59–78; PULSE 57–96; RESP 14–18; TEMP 35.9–36.3; O2SAT 96–100
[2021-09-16] MEDS: traMADol HCL (*CRX) 50 MG TABLET PO (05:30)
[2021-09-16] MEDS: LEVOTHYROXINE SODIUM 88 MCG TABLET PO (05:30)
[2021-09-16 05:55] LABS: Hematocrit 30.2 % (37.0-47.0); Hemoglobin 9.8 g/dL (12.0-15.0); Mean Corpuscular HGB Conc 32.5 g/dl (32-36); Mean Corpuscular Hemoglobin 28.7 pg (26-34); Mean Corpuscular Volume 88.3 fl (80-100); Mean Platelet Volume 10.5 fl (7.4-10.4); Platelet Count Result 132 k/mm3 (150-375); Red Blood Count 3.42 M/mm3 (4.2-5.4); Red Cell Distribution Width 14.9 % (11.5-14.5); White Blood Count 7.9 K/mm3 (4.5-10.0)
[2021-09-16 06:16] LABS: Alanine Aminotransferase 16 U/L (4-35); Albumin Level 3.2 g/dL (3.5-5.1); Alkaline Phosphatase 67 U/L (38-126); Anion Gap 4 mmol/L (8-16); Aspartate Amino Transferase 59 U/L (14-36); Bilirubin,Total 0.8 mg/dL (0.2-1.3); Blood Urea Nitrogen 11 mg/dL (7-17); Calcium 8.6 mg/dL (8.4-10.2); Carbon Dioxide 29 mmol/L (22-30); Chloride 114 mmol/L (98-107); Estimated CRCL calculation 45 ml/min; Estimated Glomerular Filt Rate > 60; Glucose 160 mg/dL (65-110); Potassium 3.1 mmol/L (3.4-5.0); Sodium 147 mmol/L (137-145)
[2021-09-16 06:18] LABS: Hemoglobin A1C 6.6 % (<5.7)
[2021-09-16 06:50] LABS: Hepatitis B Surface Antigen Negative (Negative); Thyroid Stimulating Hormone Reflex < 0.015 uIU/mL (0.465-4.68)
[2021-09-16 06:56] LABS: HAV RESULT Negative (Negative); Hepatitis B Core IgM Result Negative (Negative)
[2021-09-16 07:08] LABS: Hepatitis C Virus Antibody Negative (Negative)
[2021-09-16 07:37] LABS: Glucose Point of Care 138 mg/dl (65-105)
[2021-09-16 08:21] LABS: Total Triiodothyronine (T3) 0.94 NG/ML (0.97-1.69)
[2021-09-16] MEDS: CARBIDOPA/LEVODOPA 25/100 MG TABLET 2 TABLET PO ×3 (08:27→18:13)
[2021-09-16] MEDS: HYDROCORTISONE 10 MG TABLET 20 MG PO (08:28)
[2021-09-16] MEDS: POTASSIUM CHLORIDE 20 MEQ TABLET.ER 40 MEQ PO ×2 (08:28→18:14)
[2021-09-16] MEDS: CHOLECALCIFEROL 1,000 UNITS TABLET 1000 UNITS PO (08:29)
[2021-09-16] MEDS: CYANOCOBALAMIN 1,000 MCG TABLET 1000 MCG PO (08:30)
[2021-09-16] MEDS: DESMOPRESSIN ACETATE 0.1 MG TABLET 0.05 MG PO ×3 (08:32→18:13)
[2021-09-16] MEDS: OMEGA 3 POLYUNSAT FATTY ACIDS 1 GM CAP PO ×2 (08:33→18:14)
[2021-09-16] MEDS: GABAPENTIN 300 MG CAPSULE PO ×3 (08:33→18:14)
[2021-09-16] MEDS: QUEtiapine FUMARATE 25 MG TABLET PO ×3 (08:34→18:15)
[2021-09-16] MEDS: ROSUVASTATIN 10 MG TABLET 20 MG PO (08:34)
[2021-09-16] MEDS: PANTOPRAZOLE SODIUM IV 40 MG VIAL IV PUSH ×2 (08:35→20:49)
[2021-09-16] MEDS: ONDANSETRON HCL ODT 4 MG TABLET PO (08:37)
--- NOTE | 2021-09-16 09:03 | WPDANESPN ---
Anes - Prog Note Post-Op Date/Time: 09/16/21 09:03 Cardiovascular status: normal Respiratory status: normal Airway patency: baseline Mental status: baseline Post-Op hydration status: normal Vital Signs: Last Vital Signs Temp 96.9 F L 09/16/21 04:00 Pulse 87 09/16/21 04:00 Resp 16 09/16/21 04:00 BP 174/65 H 09/16/21 06:49 Pulse Ox 100 09/16/21 04:00 Pain Score (VAS): 12/06 I/O: Intake & Output 09/15/21 09/16/21 09/16/21 23:59 07:59 15:59 Intake Total 240 500 Balance 240 500 Laboratory Tests 09/16/21 05:37 09/16/21 05:37 09/15/21 09/15/21 09/15/21 09:15 11:59 15:21 WBC RBC Hgb 9.4 L Hct 28.8 L MCV MCH MCHC RDW Plt Count MPV Sodium Potassium Chloride Carbon Dioxide Anion Gap BUN Creatinine Estim Creat Clear Calc Estimated GFR Glucose POC Capillary Glucose 131 H 152 H Hemoglobin A1c Calcium Total Bilirubin AST ALT Alkaline Phosphatase Troponin I Total Protein Albumin TSH (Reflex) Free T4 Total T3 Hepatitis A IgM Ab Hep Bs Antigen Hep B Core IgM Ab Hepatitis C Ab Screen 09/15/21 09/15/21 09/15/21 17:00 17:10 17:10 WBC RBC Hgb 10.3 L Hct 31.1 L MCV MCH MCHC RDW Plt Count MPV Sodium Potassium Chloride Carbon Dioxide Anion Gap BUN Creatinine Estim Creat Clear Calc Estimated GFR Glucose POC Capillary Glucose 165 H Hemoglobin A1c Calcium Total Bilirubin AST ALT Alkaline Phosphatase Troponin I 0.015 Total Protein Albumin TSH (Reflex) Free T4 Total T3 Hepatitis A IgM Ab Hep Bs Antigen Hep B Core IgM Ab Hepatitis C Ab Screen 09/15/21 09/15/21 09/16/21 19:37 20:02 05:37 WBC RBC Hgb Hct MCV MCH MCHC RDW Plt Count MPV Sodium Potassium Chloride Carbon Dioxide Anion Gap BUN Creatinine Estim Creat Clear Calc Estimated GFR Glucose POC Capillary Glucose 185 H Hemoglobin A1c 6.6 H Calcium Total Bilirubin AST ALT Alkaline Phosphatase Troponin I < 0.012 D Total Protein Albumin TSH (Reflex) Free T4 Total T3 Hepatitis A IgM Ab Hep Bs Antigen Hep B Core IgM Ab Hepatitis C Ab Screen 09/16/21 09/16/21 09/16/21 05:37 05:37 05:37 WBC 7.9 RBC 3.42 L Hgb 9.8 L Hct 30.2 L MCV 88.3 MCH 28.7 D MCHC 32.5 RDW 14.9 H Plt Count 132 L MPV 10.5 H Sodium Potassium Chloride Carbon Dioxide Anion Gap BUN Creatinine Estim Creat Clear Calc Estimated GFR Glucose POC Capillary Glucose Hemoglobin A1c Calcium Total Bilirubin AST ALT Alkaline Phosphatase Troponin I Total Protein Albumin TSH (Reflex) < 0.015 L Free T4 Total T3 Hepatitis A IgM Ab Negative Hep Bs Antigen Negative Hep B Core IgM Ab Negative Hepatitis C Ab Screen Negative 09/16/21 09/16/21 09/16/21 05:37 05:37 05:37 WBC RBC Hgb Hct MCV MCH MCHC RDW Plt Count MPV Sodium 147 H Potassium 3.1 L Chloride 114 H Carbon Dioxide 29 Anion Gap 4 L BUN 11 D Creatinine 0.80 Estim Creat Clear Calc 45 Estimated GFR > 60 Glucose 160 H POC Capillary Glucose Hemoglobin A1c Calcium 8.6 Total Bilirubin 0.8 AST 59 H ALT 16 Alkaline Phosphatase 67 Troponin I Total Protein 6.0 L Albumin 3.2 L TSH (Reflex) Free T4 1.00 Total T3 0.94 L Hepatitis A IgM Ab Hep Bs Antigen Hep B Core IgM Ab Hepatitis C Ab Screen 09/16/21 07:30 WBC RBC Hgb Hct MCV MCH MCHC RDW Plt Count MPV Sodium Potassium Chloride Carbon Dioxide Anion Gap BUN Creatinine Estim Creat Clear Calc Estimated
[2021-09-16] MEDS: SERTRALINE HCL 50 MG TABLET 100 MG PO (09:34)
[2021-09-16 10:47] LABS: Add Urine Microscopic? YES; Appearance Urine Cloudy (Clear); Bilirubin Urine Negative (Negative); Blood Urine 1+ (Negative); Color Urine Yellow (Yellow); Glucose Urine UA Negative (Negative); Ketones Urine Negative (Negative); Leukocyte Esterase Ur 3+ LEU/UL (Negative); Nitrate Urine Negative (Negative); Protein Urine Negative (Negative); Specific Grav Ur 1.006 (1.001-1.035); Squamous Epithelial Cell Urine Few /hpf (Few); Transitional Epi Cells Urine Rare /hpf (None Seen); Urobilinogen Urine Negative mg/dL (<2.0); WBC Clumps Urine Present /HPF; WBC Urine >75 /hpf
[2021-09-16 11:51] LABS: Glucose Point of Care 211 mg/dl (65-105)
[2021-09-16] MEDS: diphenhydrAMINE HCl INJ 50 MG/ML VIAL 25 MG IV PUSH (12:05)
[2021-09-16] MEDS: METOCLOPRAMIDE HCL INJ 10 MG/2 ML VIAL IV PUSH (12:05)
[2021-09-16] MEDS: HYDROCORTISONE 10 MG TABLET PO (12:06)
[2021-09-16] MEDS: INSULIN ASPART (*BKC) 100 UNITS/ML SUB-Q (12:13)
--- NOTE | 2021-09-16 12:47 | PCSTNOTE ---
Speech Therapy attempted to complete evaluation; patient complaining of nausea and only took several sips of iced tea. No difficulty noted. Patient states she gets choked frequently in the past couple of days. Refused solid food due to nausea. Will try again tomorrow.
--- NOTE | 2021-09-16 16:10 | WPDGIPROGNO ---
Progress Note: A&P Assessment and Plan (1) Melena: Code(s): K92.1 - Melena Status: Acute Assessment and Plan: resolved, no more bleeding egd with erosions ? from previous bx, also gastritis but no more bleeding continue with protonix diet as tolerated (2) Acute blood loss anemia: Code(s): D62 - Acute posthemorrhagic anemia Status: Acute Assessment and Plan: monitor h/h (3) Erosive gastritis: Code(s): K29.60 - Other gastritis without bleeding Status: Acute (4) Nausea and vomiting in adult: Code(s): R11.2 - Nausea with vomiting, unspecified Status: Acute Assessment and Plan: also h/o gastroparesis, Parkinson and panhypopituitarism on hormone replacement which probably can explain underlying symptoms (5) Panhypopituitarism: Code(s): E23.0 - Hypopituitarism Status: Acute (6) Diabetic gastroparesis: Code(s): E11.43 - Type 2 diabetes mellitus with diabetic autonomic (poly)neuropathy; K31.84 - Gastroparesis Status: Acute (7) Type 2 diabetes mellitus with hyperglycemia: Code(s): E11.65 - Type 2 diabetes mellitus with hyperglycemia Status: Acute Subjective Date/time seen: 09/16/21 16:10 Interval history: still with nausea today, no more melena Review of Systems Review of Systems: All systems reviewed & are unremarkable except as noted in HPI and below Exam Const: General: comfortable and no acute distress HENMT: General nose exam: Normal nares present Eyes: General: appearance normal, both eyes and all related structures Neck: Neck: no JVD Resp: Auscultation: clear to auscultation bilaterally Cardio: Rate: regular rate Rhythm: regular rhythm GI: Inspection: non-distended GI Palp: Yes Soft to palpation and No Guarding due to palpation present (GI) Auscultation: normal bowel sounds Skin: General skin exam: normal color Neuro: General: gait normal Speech: normal speech Extrem: General: normal to inspection Psych: Mental Status: mental status grossly normal Objective Data Vital Signs Vital Signs: Vital Signs - 24 hr 09/15/21 16:46 09/15/21 20:00 09/15/21 20:43 Temperature 97.2 F L 97.9 F Pulse Rate 53 L 62 58 L Respiratory Rate 18 14 14 Blood Pressure 148/63 H 150/40 H Pulse Oximetry 97 95 95 09/15/21 23:47 09/16/21 00:00 09/16/21 04:00 Temperature 96.6 F L 96.9 F L Pulse Rate 68 57 L 87 Respiratory Rate 16 16 Blood Pressure 156/78 H 186/78 H Pulse Oximetry 98 100 09/16/21 06:49 09/16/21 08:00 09/16/21 12:00 Temperature Pulse Rate 82 84 Respiratory Rate Blood Pressure 174/65 H Pulse Oximetry 09/16/21 12:40 Temperature 96.6 F L Pulse Rate 74 Respiratory Rate 14 Blood Pressure 127/59 L Pulse Oximetry 96 Intake/Output Intake/Output: Intake & Output 09/13/21 09/14/21 09/15/21 09/16/21 23:59 23:59 23:59 23:59 Intake Total 1250 690 860 Output Total 700 Balance 1250 -10 860 Meds/Results Medications: Active Medications Generic Name Dose Route Start Last Admin Trade Name Freq PRN Reason Stop Dose Admin Carbidopa/Levodopa 2 tablet 09/15/21 08:00 09/16/21 12:06 Carbidopa/Levodopa 25/100 Mg Tablet PO 2 tablet TIDWM CARROLL Administration Cyanocobalamin 1,000 mcg 09/15/21 09:00 09/16/21 08:30 Cyanocobalamin 1,000 Mcg Tablet PO 1,000 mcg DAILY CARROLL Administration Desmopressin Acetate 0.05 mg 09/15/21 09:00 09/16/21 12:07 Desmopressin Acetate 0.1 Mg Tablet PO 0.05 mg TID CARROLL Administration Dextrose 12.5 gm 09/15/21 15:00 Dextrose 50% 25 Gm/50 Ml Syringe IV PUSH PRN PRN Hypoglycemia Protocol Fish Oil 1 gm 09/15/21 09:00 09/16/21 08:33 [place] 3 Polyunsat Fatty Acids 1 Gm Cap PO 1 gm BID CARROLL Administration Gabapentin 300 mg 09/15/21 09:00 09/16/21 12:06 Gabapentin 300 Mg Capsule PO 300 mg TID CARROLL Administration Glucagon 1 mg 09/15/21 15:00 Glucagon For I
[2021-09-16 16:35] LABS: Glucose Point of Care 131 mg/dl (65-105)
--- NOTE | 2021-09-16 17:03 | PM.IMPN ---
Progress Note: A&P Assessment and Plan (1) Anemia: Code(s): D64.9 - Anemia, unspecified Status: Acute Assessment and Plan: 09/14/21 # Generalized weakness likely due to underlying GI bleed and hypotension. Order PT OT # hypotension resolved with transfusion and IV resuscitation in the ER hold blood pressure medication # occult GI bleed recent esophageal dilatation and multiple biopsies taken query bleeding from these biopsy sites. GI has been consulted for further evaluation and management. Will place on PPI b.i.d. hold aspirin Plavix # acute on chronic anemia hemoglobin of 6.9 transfused 2 unit PRBC PE. INR normal platelets normal. Her baseline hemoglobin 13.6 back in 07/27/2021. Recent EGD with normal finding however was dilated empirically. Pathology biopsies has been negative 09/15/21 Hgb today 9.4. Continue checking H/H q6 hr. GI consulted. Taking patient for scope today. Continue PPI BID and hold aspirin/plavix. 09/16/21 Hgb stable 9.8. EGD with gastritis but no active bleeding. GI following. Diet as tolerated Continue PPI BID and hold asa/plavix. (2) Occult GI bleeding: Code(s): R19.5 - Other fecal abnormalities Status: Acute Assessment and Plan: See above, anemia. (3) Type 2 diabetes mellitus with hyperglycemia: Code(s): E11.65 - Type 2 diabetes mellitus with hyperglycemia Status: Acute Assessment and Plan: Glucose today 131 and patient has been NPO. Pt currently on home dose of Lantus 10 units QHS. Will initiate sliding scale insulin, she states she is on 3 units of Humalog TID currently and her sugars have been in the 400s recently at home. Check A1c. Will continue to monitor. (4) Essential hypertension: Code(s): I10 - Essential (primary) hypertension Status: Acute Assessment and Plan: Presented to ED hypotensive 76/51. Improved s/p 2 units PRBC and IVF. Trending upward, per tech 172/87 but was not documented in EMR. Stopped IVF. She is still NPO at this time. Will resume home medications after her procedure if needed. (5) Hyperlipidemia: Code(s): E78.5 - Hyperlipidemia, unspecified Status: Acute Assessment and Plan: LFTs elevated in June. Will recheck in AM as well as hepatitis panel. Hold statin for now. 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 Continue levothyroxine. (8) Panhypopituitarism: Code(s): E23.0 - Hypopituitarism Status: Acute Assessment and Plan: continue home meds (9) Diabetic gastroparesis: Code(s): E11.43 - Type 2 diabetes mellitus with diabetic autonomic (poly)neuropathy; K31.84 - Gastroparesis Status: Acute Assessment and Plan: Had nausea/vomiting today no relief with zofran. D/c zofran as it is QT prolonging and her intervals were borderline. Also cannot do phenergan for same reason. Gave one dose of reglan but gave with benadryl to avoid extrapyramidal symptoms. She had relief with these medications. Will consider trying erythromycin if N/V continues. GI following. Additional Plan # DVT prophylaxis SCDs - ASA and Plavix held at this time # full code status Subjective Date/time seen: 09/16/21 17:03 Pt is a 71 yo female w/ hx of adrenal insufficiency, CKD, DM w/ GP, HTN admitted for acute GI bleed. Pt was scoped yesterday which showed gastritis but no active bleeding. On arrival today pt was actively wretching and vomiting, no relief with zofran. Admitted to intermittent epigastric pain which she described as sharp. No fever. Reports fatigue. Review of Systems Review of Systems: General: Denies fevers, +fatigue Eyes: + blurred vision R eye x 2 weeks, no vis
[2021-09-16] MEDS: INSULIN GLARGINE (*BKC) 100 UNITS/ML 10 UNITS SUB-Q (18:19)
[2021-09-16 20:51] LABS: Glucose Point of Care 270 mg/dl (65-105)
[2021-09-17] VITALS (10 sets, daily range): BP systolic 128–148; BP diastolic 50–58; PULSE 49–74; RESP 14–18; TEMP 35.7–36.6; O2SAT 94–98
[2021-09-17] MEDS: LEVOTHYROXINE SODIUM 88 MCG TABLET PO (06:22)
[2021-09-17 06:24] LABS: Basophils Percent Auto 0.3 % (0.2-1.2); Eosinophils Absolute Auto 0.2 K/mm3 (0-0.3); Eosinophils Percent Auto 2.2 % (0-4.4); Hematocrit 25.1 % (37.0-47.0); Hemoglobin 8.2 g/dL (12.0-15.0); Immature Granulocyte Absolute 0.04 K/mm3 (0.00-0.031); Immature Granulocyte Percent A 0.5 % (0-0.5); Lymphocytes Absolute Auto 2.51 K/mm3 (0.9-3.2); Lymphocytes Percent Auto 33.8 % (18.3-44.2); Mean Corpuscular HGB Conc 32.7 g/dl (32-36); Mean Corpuscular Hemoglobin 27.6 pg (26-34); Mean Corpuscular Volume 84.5 fl (80-100); Mean Platelet Volume 11.2 fl (7.4-10.4); Monocytes Absolute Auto 0.8 K/mm3 (0.1-0.6); Monocytes Percent Auto 10.2 % (2.6-8.5); Neutrophils Absolute Auto 3.9 K/mm3 (1.3-6.7); Platelet Count Result 98 k/mm3 (150-375); Red Blood Count 2.97 M/mm3 (4.2-5.4); Red Cell Distribution Width 14.4 % (11.5-14.5); White Blood Count 7.4 K/mm3 (4.5-10.0)
[2021-09-17 06:54] LABS: Lactic Acid Reflex 0.9 mmol/L (0.7-2.1)
[2021-09-17 06:57] LABS: Anion Gap 5 mmol/L (8-16); Blood Urea Nitrogen 12 mg/dL (7-17); Calcium 8.3 mg/dL (8.4-10.2); Carbon Dioxide 27 mmol/L (22-30); Chloride 106 mmol/L (98-107); Estimated CRCL calculation 45 ml/min; Estimated Glomerular Filt Rate > 60; Glucose 166 mg/dL (65-110); Potassium 3.3 mmol/L (3.4-5.0); Sodium 138 mmol/L (137-145)
[2021-09-17 07:50] LABS: Glucose Point of Care 172 mg/dl (65-105)
[2021-09-17] MEDS: HYDROCORTISONE 10 MG TABLET 20 MG PO (09:51)
[2021-09-17] MEDS: CHOLECALCIFEROL 1,000 UNITS TABLET 1000 UNITS PO (09:52)
[2021-09-17] MEDS: CARBIDOPA/LEVODOPA 25/100 MG TABLET 2 TABLET PO ×3 (09:52→17:26)
[2021-09-17] MEDS: POTASSIUM CHLORIDE 20 MEQ TABLET.ER 40 MEQ PO ×2 (09:52→17:27)
[2021-09-17] MEDS: ROSUVASTATIN 10 MG TABLET 20 MG PO (09:53)
[2021-09-17] MEDS: DESMOPRESSIN ACETATE 0.1 MG TABLET 0.05 MG PO ×3 (09:53→17:26)
[2021-09-17] MEDS: SERTRALINE HCL 50 MG TABLET 100 MG PO (09:53)
[2021-09-17] MEDS: GABAPENTIN 300 MG CAPSULE PO ×3 (09:53→17:26)
[2021-09-17] MEDS: PANTOPRAZOLE SODIUM IV 40 MG VIAL IV PUSH ×2 (09:53→20:34)
[2021-09-17] MEDS: CYANOCOBALAMIN 1,000 MCG TABLET 1000 MCG PO (09:53)
[2021-09-17] MEDS: OMEGA 3 POLYUNSAT FATTY ACIDS 1 GM CAP PO ×2 (09:53→17:27)
[2021-09-17] MEDS: QUEtiapine FUMARATE 25 MG TABLET PO ×3 (09:54→17:28)
--- NOTE | 2021-09-17 11:19 | PCNFU ---
Nutrition Follow-Up Complete: Altered GI function as related to GI bleed/anemia as evidenced by NPO Goal: Meet estimated nutritional needs Patient is progressing towards goal. We will continue current goal. Pt current nutrition is DBCC, Minced and Moist, Level 5 with Glucerna shakes BID. Last recorded weight is 61.9 kg, no new weight to report. Bowel Motility:+BM reported 09/15. Labs Reviewed:Glu 166, K 3.3, Hct 25.1,Hgb 8.2 Meds Noted:KCL, Crestor, Synthroid, Seroquel, Sinemet, Rocephin, Vit B 12, Lovaza, Vit D, Lantus,Cortef, Protonix. Additional Notes: Nutrition follow up. Patient is being treated for UTI. Patient seen today, finishing breakfast today. Oral Intake has been fair 0-25% of meals. Speech therapy orders for bedside swallow today. Recommending Minced and Moist, Level 5 diet modifications. Diet supplements are being consumed of Glucerna BID providing an additional 220 kcals and 10 gms protein. Agree with diet orders. Monitoring: Will monitor every 3 days.
[2021-09-17 11:52] LABS: Glucose Point of Care 242 mg/dl (65-105)
[2021-09-17] MEDS: HYDROCORTISONE 10 MG TABLET PO (12:07)
[2021-09-17] MEDS: INSULIN ASPART (*BKC) 100 UNITS/ML SUB-Q ×2 (12:07→17:25)
--- NOTE | 2021-09-17 12:25 | WPDGIPROGNO ---
Progress Note: A&P Assessment and Plan (1) Melena: Code(s): K92.1 - Melena Status: Acute Assessment and Plan: resolved, no more bleeding egd with erosions ? from previous bx, also gastritis but no more bleeding continue with protonix she is tolerating diet and no more nausea today no objections to discharge by GI standpoint (2) Acute blood loss anemia: Code(s): D62 - Acute posthemorrhagic anemia Status: Acute Assessment and Plan: hb low but stable continue with ppi (3) Erosive gastritis: Code(s): K29.60 - Other gastritis without bleeding Status: Acute Assessment and Plan: did not take more biopsies this time (4) Nausea and vomiting in adult: Code(s): R11.2 - Nausea with vomiting, unspecified Status: Acute Assessment and Plan: also h/o gastroparesis, Parkinson and panhypopituitarism on hormone replacement which probably can explain underlying symptoms also UTI on antibiotics now (5) Panhypopituitarism: Code(s): E23.0 - Hypopituitarism Status: Acute (6) Diabetic gastroparesis: Code(s): E11.43 - Type 2 diabetes mellitus with diabetic autonomic (poly)neuropathy; K31.84 - Gastroparesis Status: Acute (7) Type 2 diabetes mellitus with hyperglycemia: Code(s): E11.65 - Type 2 diabetes mellitus with hyperglycemia Status: Acute Subjective Date/time seen: 09/17/21 12:25 Interval history: doing much better with no nausea and eating more, no signs of bleeding. Review of Systems Review of Systems: All systems reviewed & are unremarkable except as noted in HPI and below Exam Const: General: comfortable and no acute distress HENMT: General nose exam: Normal nares present Eyes: General: appearance normal, both eyes and all related structures Neck: Neck: no JVD Resp: Auscultation: clear to auscultation bilaterally Cardio: Rate: regular rate Rhythm: regular rhythm GI: Inspection: non-distended GI Palp: Yes Soft to palpation and No Guarding due to palpation present (GI) Auscultation: normal bowel sounds Skin: General skin exam: normal color Neuro: General: gait normal Speech: normal speech Extrem: General: normal to inspection Psych: Mental Status: mental status grossly normal Objective Data Vital Signs Vital Signs: Vital Signs - 24 hr 09/16/21 12:40 09/16/21 16:00 09/16/21 16:42 Temperature 96.6 F L 97.3 F L Pulse Rate 74 75 96 Respiratory Rate 14 18 Blood Pressure 127/59 L 127/62 Pulse Oximetry 96 96 09/16/21 20:00 09/16/21 20:37 09/17/21 00:00 Temperature 97.1 F L Pulse Rate 68 73 64 Respiratory Rate 17 Blood Pressure 117/68 Pulse Oximetry 96 09/17/21 00:08 09/17/21 04:22 09/17/21 04:48 Temperature 97 F L 97.8 F Pulse Rate 68 67 74 Respiratory Rate 18 14 Blood Pressure 143/57 H 128/54 L Pulse Oximetry 97 94 09/17/21 10:00 Temperature Pulse Rate 49 L Respiratory Rate Blood Pressure Pulse Oximetry Intake/Output Intake/Output: Intake & Output 09/14/21 09/15/21 09/16/21 09/17/21 23:59 23:59 23:59 23:59 Intake Total 1273 953 4478 340 Output Total 700 500 150 Balance 1250 -10 650 190 Meds/Results Medications: Active Medications Generic Name Dose Route Start Last Admin Trade Name Freq PRN Reason Stop Dose Admin Carbidopa/Levodopa 2 tablet 09/15/21 08:00 09/17/21 12:07 Carbidopa/Levodopa 25/100 Mg Tablet PO 2 tablet TIDWM CARROLL Administration Cyanocobalamin 1,000 mcg 09/15/21 09:00 09/17/21 09:53 Cyanocobalamin 1,000 Mcg Tablet PO 1,000 mcg DAILY CARROLL Administration Desmopressin Acetate 0.05 mg 09/15/21 09:00 09/17/21 09:53 Desmopressin Acetate 0.1 Mg Tablet PO 0.05 mg TID CARROLL Administration Dextrose 12.5 gm 09/15/21 15:00 Dextrose 50% 25 Gm/50 Ml Syringe IV PUSH PRN PRN Hypoglycemia Protocol Fish Oil 1 gm 09/15/21 09:00 09/17/21 09:53 [place] 3 Polyunsat Fatty Acids
--- NOTE | 2021-09-17 12:43 | PM.IMPN ---
Progress Note: A&P Assessment and Plan (1) Anemia: Code(s): D64.9 - Anemia, unspecified Status: Acute Assessment and Plan: 09/14/21 # Generalized weakness likely due to underlying GI bleed and hypotension. Order PT OT # hypotension resolved with transfusion and IV resuscitation in the ER hold blood pressure medication # occult GI bleed recent esophageal dilatation and multiple biopsies taken query bleeding from these biopsy sites. GI has been consulted for further evaluation and management. Will place on PPI b.i.d. hold aspirin Plavix # acute on chronic anemia hemoglobin of 6.9 transfused 2 unit PRBC PE. INR normal platelets normal. Her baseline hemoglobin 13.6 back in 07/27/2021. Recent EGD with normal finding however was dilated empirically. Pathology biopsies has been negative 09/15/21 Hgb today 9.4. Continue checking H/H q6 hr. GI consulted. Taking patient for scope today. Continue PPI BID and hold aspirin/plavix. 09/16/21 Hgb stable 9.8. EGD with gastritis but no active bleeding. GI following. Diet as tolerated Continue PPI BID and hold asa/plavix. 09/17/21 Hgb slightly lower but stable. Cleared by GI for discharge with continued outpatient follow up. (2) Occult GI bleeding: Code(s): R19.5 - Other fecal abnormalities Status: Acute Assessment and Plan: See above, anemia. Resolved. (3) Type 2 diabetes mellitus with hyperglycemia: Code(s): E11.65 - Type 2 diabetes mellitus with hyperglycemia Status: Acute Assessment and Plan: Glucose today 131 and patient has been NPO. Pt currently on home dose of Lantus 10 units QHS. Will initiate sliding scale insulin, she states she is on 3 units of Humalog TID currently and her sugars have been in the 400s recently at home. Check A1c. Will continue to monitor. (4) Essential hypertension: Code(s): I10 - Essential (primary) hypertension Status: Acute Assessment and Plan: Presented to ED hypotensive 76/51. Improved s/p 2 units PRBC and IVF. Trending upward, per tech 172/87 but was not documented in EMR. Stopped IVF. She is still NPO at this time. Will resume home medications after her procedure if needed. (5) Hyperlipidemia: Code(s): E78.5 - Hyperlipidemia, unspecified Status: Acute Assessment and Plan: LFTs elevated in June. Will recheck in AM as well as hepatitis panel. Hold statin for now. 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 Continue levothyroxine. (8) Panhypopituitarism: Code(s): E23.0 - Hypopituitarism Status: Acute Assessment and Plan: continue home meds (9) Diabetic gastroparesis: Code(s): E11.43 - Type 2 diabetes mellitus with diabetic autonomic (poly)neuropathy; K31.84 - Gastroparesis Status: Acute Assessment and Plan: Had nausea/vomiting today no relief with zofran. D/c zofran as it is QT prolonging and her intervals were borderline. Also cannot do phenergan for same reason. Gave one dose of reglan but gave with benadryl to avoid extrapyramidal symptoms. She had relief with these medications. Will consider trying erythromycin if N/V continues. GI following. N/V resolved. Suspect secondary to current UTI infection. (10) UTI (urinary tract infection): Code(s): N39.0 - Urinary tract infection, site not specified Status: Acute Assessment and Plan: ceftriaxone started yesterday. urine culture pending. Additional Plan # DVT prophylaxis SCDs - ASA and Plavix held at this time # full code status Subjective Date/time seen: 09/17/21 12:43 Pt is a 71 yo female w/ hx of adrenal insufficiency, CKD, DM w/ GP, HTN admitte
[2021-09-17 16:48] LABS: Glucose Point of Care 269 mg/dl (65-105)
[2021-09-17] MEDS: INSULIN GLARGINE (*BKC) 100 UNITS/ML 10 UNITS SUB-Q (17:25)
[2021-09-17 21:03] LABS: Glucose Point of Care 252 mg/dl (65-105)
[2021-09-17] MEDS: traMADol HCL (*CRX) 50 MG TABLET PO (23:34)
[2021-09-18] VITALS: PULSE 66
[2021-09-18 03:59] VITALS: BP 158/68; PULSE 60; RESP 18; TEMP 36.1; O2SAT 96
[2021-09-18 04:08] VITALS: PULSE 64
[2021-09-18 06:09] LABS: Basophils Percent Auto 0.3 % (0.2-1.2); Eosinophils Absolute Auto 0.1 K/mm3 (0-0.3); Eosinophils Percent Auto 1.9 % (0-4.4); Hematocrit 24.4 % (37.0-47.0); Hemoglobin 8.1 g/dL (12.0-15.0); Immature Granulocyte Absolute 0.06 K/mm3 (0.00-0.031); Immature Granulocyte Percent A 0.8 % (0-0.5); Lymphocytes Absolute Auto 1.71 K/mm3 (0.9-3.2); Lymphocytes Percent Auto 23.6 % (18.3-44.2); Mean Corpuscular HGB Conc 33.2 g/dl (32-36); Mean Corpuscular Hemoglobin 27.6 pg (26-34); Mean Platelet Volume 11.8 fl (7.4-10.4); Monocytes Absolute Auto 0.6 K/mm3 (0.1-0.6); Monocytes Percent Auto 8.4 % (2.6-8.5); Neutrophils Absolute Auto 4.7 K/mm3 (1.3-6.7); Platelet Count Result 110 k/mm3 (150-375); Red Blood Count 2.94 M/mm3 (4.2-5.4); Red Cell Distribution Width 14.6 % (11.5-14.5); White Blood Count 7.3 K/mm3 (4.5-10.0)
[2021-09-18 06:18] LABS: Anion Gap 4 mmol/L (8-16); Blood Urea Nitrogen 10 mg/dL (7-17); Calcium 8.5 mg/dL (8.4-10.2); Carbon Dioxide 25 mmol/L (22-30); Chloride 104 mmol/L (98-107); Estimated CRCL calculation 51 ml/min; Estimated Glomerular Filt Rate > 60; Glucose 221 mg/dL (65-110); Potassium 4.3 mmol/L (3.4-5.0); Sodium 133 mmol/L (137-145)
[2021-09-18] MEDS: LEVOTHYROXINE SODIUM 88 MCG TABLET PO (06:41)
[2021-09-18] MEDS: traMADol HCL (*CRX) 50 MG TABLET PO ×2 (06:43→12:43)
[2021-09-18 08:01] LABS: Glucose Point of Care 207 mg/dl (65-105)
[2021-09-18] MEDS: DESMOPRESSIN ACETATE 0.1 MG TABLET 0.05 MG PO ×3 (08:14→17:00)
[2021-09-18] MEDS: QUEtiapine FUMARATE 25 MG TABLET PO ×3 (08:14→17:00)
[2021-09-18] MEDS: POTASSIUM CHLORIDE 20 MEQ TABLET.ER 40 MEQ PO ×2 (08:14→17:01)
[2021-09-18] MEDS: OMEGA 3 POLYUNSAT FATTY ACIDS 1 GM CAP PO ×2 (08:14→17:01)
[2021-09-18] MEDS: ROSUVASTATIN 10 MG TABLET 20 MG PO (08:14)
[2021-09-18] MEDS: GABAPENTIN 300 MG CAPSULE PO ×3 (08:14→17:00)
[2021-09-18] MEDS: SERTRALINE HCL 50 MG TABLET 100 MG PO (08:14)
[2021-09-18] MEDS: CARBIDOPA/LEVODOPA 25/100 MG TABLET 2 TABLET PO ×3 (08:15→17:00)
[2021-09-18] MEDS: CHOLECALCIFEROL 1,000 UNITS TABLET 1000 UNITS PO (08:15)
[2021-09-18] MEDS: CYANOCOBALAMIN 1,000 MCG TABLET 1000 MCG PO (08:15)
[2021-09-18] MEDS: PANTOPRAZOLE SODIUM IV 40 MG VIAL IV PUSH ×2 (08:15→20:11)
[2021-09-18] MEDS: HYDROCORTISONE 10 MG TABLET 20 MG PO (08:16)
[2021-09-18] MEDS: INSULIN ASPART (*BKC) 100 UNITS/ML SUB-Q ×2 (08:24→17:01)
--- NOTE | 2021-09-18 11:17 | PM.IMPN ---
Progress Note: A&P Assessment and Plan (1) Anemia: Code(s): D64.9 - Anemia, unspecified Status: Acute Assessment and Plan: 09/14/21 # Generalized weakness likely due to underlying GI bleed and hypotension. Order PT OT # hypotension resolved with transfusion and IV resuscitation in the ER hold blood pressure medication # occult GI bleed recent esophageal dilatation and multiple biopsies taken query bleeding from these biopsy sites. GI has been consulted for further evaluation and management. Will place on PPI b.i.d. hold aspirin Plavix # acute on chronic anemia hemoglobin of 6.9 transfused 2 unit PRBC PE. INR normal platelets normal. Her baseline hemoglobin 13.6 back in 07/27/2021. Recent EGD with normal finding however was dilated empirically. Pathology biopsies has been negative 09/15/21 Hgb today 9.4. Continue checking H/H q6 hr. GI consulted. Taking patient for scope today. Continue PPI BID and hold aspirin/plavix. 09/16/21 Hgb stable 9.8. EGD with gastritis but no active bleeding. GI following. Diet as tolerated Continue PPI BID and hold asa/plavix. 09/17/21 Hgb slightly lower but stable. Cleared by GI for discharge with continued outpatient follow up. (2) Occult GI bleeding: Code(s): R19.5 - Other fecal abnormalities Status: Acute Assessment and Plan: See above, anemia. Resolved. (3) Type 2 diabetes mellitus with hyperglycemia: Code(s): E11.65 - Type 2 diabetes mellitus with hyperglycemia Status: Acute Assessment and Plan: Glucose today 131 and patient has been NPO. Pt currently on home dose of Lantus 10 units QHS. Will initiate sliding scale insulin, she states she is on 3 units of Humalog TID currently and her sugars have been in the 400s recently at home. Check A1c. Will continue to monitor. Glucose trending up, in the 200s consistently, suspect due to patient eating better. Will continue 10 units of Lantus and increase sliding scale to moderate dosing. (4) Essential hypertension: Code(s): I10 - Essential (primary) hypertension Status: Acute Assessment and Plan: Presented to ED hypotensive 76/51. Improved s/p 2 units PRBC and IVF. Trending upward, per tech 172/87 but was not documented in EMR. Stopped IVF. She is still NPO at this time. Will resume home medications after her procedure if needed. Per patient, her doctor took her off her blood pressure medication and she only takes isosorbine mononitrate. She appears to be at her baseline in the 150s systolic. Will attempt to find out what she was on before. (5) Hyperlipidemia: Code(s): E78.5 - Hyperlipidemia, unspecified Status: Acute Assessment and Plan: LFTs elevated in June. Will recheck in AM as well as hepatitis panel. Hold statin for now. Repeat LFTs only minimally elevated, restart statin. 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 Continue levothyroxine. (8) Panhypopituitarism: Code(s): E23.0 - Hypopituitarism Status: Acute Assessment and Plan: continue home meds (9) Diabetic gastroparesis: Code(s): E11.43 - Type 2 diabetes mellitus with diabetic autonomic (poly)neuropathy; K31.84 - Gastroparesis Status: Acute Assessment and Plan: Had nausea/vomiting today no relief with zofran. D/c zofran as it is QT prolonging and her intervals were borderline. Also cannot do phenergan for same reason. Gave one dose of reglan but gave with benadryl to avoid extrapyramidal symptoms. She had relief with these medications. GI following. N/V resolved. Suspect secondary to current UTI infection. N/V returned today. Could be due to wors
[2021-09-18 11:48] LABS: Glucose Point of Care 142 mg/dl (65-105)
[2021-09-18 12:00] VITALS: BP 153/58; PULSE 67; PULSE 84; RESP 16; TEMP 36.6; O2SAT 96
[2021-09-18] MEDS: HYDROCORTISONE 10 MG TABLET PO (12:29)
[2021-09-18] MEDS: diphenhydrAMINE HCl INJ 50 MG/ML VIAL 12.5 MG IV PUSH (12:34)
[2021-09-18] MEDS: SODIUM CHLORIDE 0.9% IV 500 ML IV CONT (12:34)
[2021-09-18] MEDS: METOCLOPRAMIDE HCL INJ 10 MG/2 ML VIAL 5 MG IV PUSH (12:34)
--- NOTE | 2021-09-18 13:03 | PCOTNOTE ---
Attempted to see pt for this today, however, pt refused stating she was in pain and not feeling good. Pt's lunch was setup however, pt states that she is struggling to eat due to fatigue and not feeling good. Pt declined to complete any adls and/or therapeutic activities on this date. Pt verbally agreed that she will participate tomorrow if she is feeling better. HUMAN CAPITAL MANAGER reports that pt recently received pain medication that is making her very lethargic. HUMAN CAPITAL MANAGER was informed that pt refused therapy on this date. Will continued per poc duration/frequency tomorrow.
[2021-09-18 16:00] VITALS: BP 165/69; PULSE 58; PULSE 70; RESP 20; TEMP 36.3; O2SAT 95
[2021-09-18 16:57] LABS: Glucose Point of Care 240 mg/dl (65-105)
[2021-09-18] MEDS: INSULIN GLARGINE (*BKC) 100 UNITS/ML 10 UNITS SUB-Q (17:04)
[2021-09-18 20:00] VITALS: BP 173/83; PULSE 57; PULSE 63; RESP 14; TEMP 36.3; O2SAT 99
[2021-09-18 20:59] LABS: Glucose Point of Care 301 mg/dl (65-105)
[2021-09-19] VITALS (11 sets, daily range): BP systolic 130–196; BP diastolic 52–90; PULSE 54–90; RESP 12–18; TEMP 36–36.9; O2SAT 93–98
[2021-09-19] MEDS: LEVOTHYROXINE SODIUM 88 MCG TABLET PO (05:36)
[2021-09-19 06:15] LABS: Basophils Percent Auto 0.3 % (0.2-1.2); Eosinophils Absolute Auto 0.2 K/mm3 (0-0.3); Eosinophils Percent Auto 2.2 % (0-4.4); Hematocrit 27.1 % (37.0-47.0); Hemoglobin 8.7 g/dL (12.0-15.0); Immature Granulocyte Absolute 0.11 K/mm3 (0.00-0.031); Immature Granulocyte Percent A 1.1 % (0-0.5); Lymphocytes Absolute Auto 1.88 K/mm3 (0.9-3.2); Lymphocytes Percent Auto 18.9 % (18.3-44.2); Mean Corpuscular HGB Conc 32.1 g/dl (32-36); Mean Corpuscular Hemoglobin 27.9 pg (26-34); Mean Corpuscular Volume 86.9 fl (80-100); Mean Platelet Volume 11.6 fl (7.4-10.4); Monocytes Absolute Auto 0.8 K/mm3 (0.1-0.6); Monocytes Percent Auto 7.6 % (2.6-8.5); Neutrophils Percent Auto 69.9 % (45.5-73.1); Platelet Count Result 151 k/mm3 (150-375); Red Blood Count 3.12 M/mm3 (4.2-5.4); Red Cell Distribution Width 15.2 % (11.5-14.5)
[2021-09-19 06:36] LABS: Anion Gap 5 mmol/L (8-16); Blood Urea Nitrogen 7 mg/dL (7-17); Calcium 8.6 mg/dL (8.4-10.2); Carbon Dioxide 27 mmol/L (22-30); Chloride 101 mmol/L (98-107); Estimated CRCL calculation 51 ml/min; Estimated Glomerular Filt Rate > 60; Glucose 182 mg/dL (65-110); Potassium 4.1 mmol/L (3.4-5.0); Sodium 133 mmol/L (137-145)
[2021-09-19 07:52] LABS: Glucose Point of Care 163 mg/dl (65-105)
[2021-09-19] MEDS: CARBIDOPA/LEVODOPA 25/100 MG TABLET 2 TABLET PO ×3 (08:15→17:20)
[2021-09-19] MEDS: CHOLECALCIFEROL 1,000 UNITS TABLET 1000 UNITS PO (08:16)
[2021-09-19] MEDS: QUEtiapine FUMARATE 25 MG TABLET PO ×3 (08:16→17:20)
[2021-09-19] MEDS: SERTRALINE HCL 50 MG TABLET 100 MG PO (08:16)
[2021-09-19] MEDS: POTASSIUM CHLORIDE 20 MEQ TABLET.ER 40 MEQ PO ×2 (08:16→17:20)
[2021-09-19] MEDS: DESMOPRESSIN ACETATE 0.1 MG TABLET 0.05 MG PO ×3 (08:17→17:23)
[2021-09-19] MEDS: ROSUVASTATIN 10 MG TABLET 20 MG PO (08:17)
[2021-09-19] MEDS: CYANOCOBALAMIN 1,000 MCG TABLET 1000 MCG PO (08:17)
[2021-09-19] MEDS: OMEGA 3 POLYUNSAT FATTY ACIDS 1 GM CAP PO ×2 (08:17→17:20)
[2021-09-19] MEDS: GABAPENTIN 300 MG CAPSULE PO ×3 (08:17→17:21)
[2021-09-19] MEDS: ISOSORBIDE MONONITRATE 60 MG TAB.ER.24H PO (08:17)
[2021-09-19] MEDS: HYDROCORTISONE 10 MG TABLET 20 MG PO (08:18)
[2021-09-19] MEDS: PANTOPRAZOLE SODIUM IV 40 MG VIAL IV PUSH ×2 (08:18→20:04)
[2021-09-19] MEDS: lisinopriL 20 MG TABLET PO (10:01)
[2021-09-19 12:18] LABS: Glucose Point of Care 216 mg/dl (65-105)
[2021-09-19] MEDS: HYDROCORTISONE 10 MG TABLET PO (12:34)
[2021-09-19] MEDS: INSULIN ASPART (*BKC) 100 UNITS/ML SUB-Q ×2 (12:39→18:24)
--- NOTE | 2021-09-19 15:06 | PM.IMPN ---
Progress Note: A&P Assessment and Plan (1) Anemia: Code(s): D64.9 - Anemia, unspecified Status: Acute Assessment and Plan: 09/14/21 # Generalized weakness likely due to underlying GI bleed and hypotension. Order PT OT # hypotension resolved with transfusion and IV resuscitation in the ER hold blood pressure medication # occult GI bleed recent esophageal dilatation and multiple biopsies taken query bleeding from these biopsy sites. GI has been consulted for further evaluation and management. Will place on PPI b.i.d. hold aspirin Plavix # acute on chronic anemia hemoglobin of 6.9 transfused 2 unit PRBC PE. INR normal platelets normal. Her baseline hemoglobin 13.6 back in 07/27/2021. Recent EGD with normal finding however was dilated empirically. Pathology biopsies has been negative 09/15/21 Hgb today 9.4. Continue checking H/H q6 hr. GI consulted. Taking patient for scope today. Continue PPI BID and hold aspirin/plavix. 09/16/21 Hgb stable 9.8. EGD with gastritis but no active bleeding. GI following. Diet as tolerated Continue PPI BID and hold asa/plavix. 09/17/21 Hgb slightly lower but stable. Cleared by GI for discharge with continued outpatient follow up. Per GI hold asa/plavix x7 days and continue PPI BID. (2) Occult GI bleeding: Code(s): R19.5 - Other fecal abnormalities Status: Acute Assessment and Plan: See above, anemia. Resolved. (3) Type 2 diabetes mellitus with hyperglycemia: Code(s): E11.65 - Type 2 diabetes mellitus with hyperglycemia Status: Acute Assessment and Plan: Glucose today 131 and patient has been NPO. Pt currently on home dose of Lantus 10 units QHS. Will initiate sliding scale insulin, she states she is on 3 units of Humalog TID currently and her sugars have been in the 400s recently at home. Check A1c. Will continue to monitor. Glucose trending up, in the 200s consistently, suspect due to patient eating better. Will continue 10 units of Lantus and increase sliding scale to moderate dosing. (4) Essential hypertension: Code(s): I10 - Essential (primary) hypertension Status: Acute Assessment and Plan: Presented to ED hypotensive 76/51. Improved s/p 2 units PRBC and IVF. Trending upward, per tech 172/87 but was not documented in EMR. Stopped IVF. She is still NPO at this time. Will resume home medications after her procedure if needed. Per patient, her doctor took her off her blood pressure medication and she only takes isosorbine mononitrate. She appears to be at her baseline in the 150s systolic. Will attempt to find out what she was on before. BP up to 190s systolic. Pt was on lisinopril 20 mg and unknown amount of amlodipine. Her home health aid took her off of both earlier this month as she was reportedly bottoming out. She was hypotensive on arrival but once transfused has been hypertensive since that time. Will restart home medications, will start w/ 2.5 amlodipine and 20 lisinopril. Continue to monitor. She is asymptomatic, no [place] vision changes paresthesias or motor weakness. (5) Hyperlipidemia: Code(s): E78.5 - Hyperlipidemia, unspecified Status: Acute Assessment and Plan: LFTs elevated in June. Will recheck in AM as well as hepatitis panel. Hold statin for now. Repeat LFTs only minimally elevated, restart statin. 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 Continue levothyroxine. (8) Panhypopituitarism: Code(s): E23.0 - Hypopituitarism Status: Acute Assessment and Plan: continue home meds (9) Diabetic gastroparesis: Code(s): E11.43 - Type 2 diabetes mellitus with diabe
[2021-09-19 16:51] LABS: Glucose Point of Care 213 mg/dl (65-105)
[2021-09-19] MEDS: INSULIN GLARGINE (*BKC) 100 UNITS/ML 10 UNITS SUB-Q (18:24)
[2021-09-19 21:21] LABS: Glucose Point of Care 211 mg/dl (65-105)
[2021-09-20] VITALS: PULSE 71
[2021-09-20 04:00] VITALS: PULSE 54
[2021-09-20 06:00] VITALS: BP 166/78; PULSE 54; RESP 12; TEMP 35.9; O2SAT 93
[2021-09-20] MEDS: LEVOTHYROXINE SODIUM 88 MCG TABLET PO (06:23)
[2021-09-20 06:28] LABS: Hematocrit 25.4 % (37.0-47.0); Hemoglobin 8.4 g/dL (12.0-15.0); Mean Corpuscular HGB Conc 33.1 g/dl (32-36); Mean Corpuscular Hemoglobin 28.6 pg (26-34); Mean Corpuscular Volume 86.4 fl (80-100); Mean Platelet Volume 11.1 fl (7.4-10.4); Platelet Count Result 169 k/mm3 (150-375); Red Blood Count 2.94 M/mm3 (4.2-5.4); Red Cell Distribution Width 15.3 % (11.5-14.5); White Blood Count 9.5 K/mm3 (4.5-10.0)
[2021-09-20 06:57] LABS: Anion Gap 1 mmol/L (8-16); Blood Urea Nitrogen 7 mg/dL (7-17); Calcium 8.4 mg/dL (8.4-10.2); Carbon Dioxide 28 mmol/L (22-30); Chloride 99 mmol/L (98-107); Estimated CRCL calculation 51 ml/min; Estimated Glomerular Filt Rate > 60; Glucose 116 mg/dL (65-110); Potassium 3.4 mmol/L (3.4-5.0); Sodium 128 mmol/L (137-145)
[2021-09-20 07:54] LABS: Glucose Point of Care 118 mg/dl (65-105)
[2021-09-20 08:00] VITALS: BP 160/88; PULSE 68
[2021-09-20] MEDS: HYDROCORTISONE 10 MG TABLET 20 MG PO (08:40)
[2021-09-20] MEDS: PANTOPRAZOLE SODIUM IV 40 MG VIAL IV PUSH (08:40)
[2021-09-20] MEDS: DESMOPRESSIN ACETATE 0.1 MG TABLET 0.05 MG PO (08:41)
[2021-09-20] MEDS: QUEtiapine FUMARATE 25 MG TABLET PO (08:41)
[2021-09-20] MEDS: CHOLECALCIFEROL 1,000 UNITS TABLET 1000 UNITS PO (08:41)
[2021-09-20] MEDS: ROSUVASTATIN 10 MG TABLET 20 MG PO (08:41)
[2021-09-20] MEDS: SERTRALINE HCL 50 MG TABLET 100 MG PO (08:42)
[2021-09-20] MEDS: ISOSORBIDE MONONITRATE 60 MG TAB.ER.24H PO (08:42)
[2021-09-20] MEDS: POTASSIUM CHLORIDE 20 MEQ TABLET.ER 40 MEQ PO (08:42)
[2021-09-20] MEDS: CARBIDOPA/LEVODOPA 25/100 MG TABLET 2 TABLET PO (08:42)
[2021-09-20] MEDS: lisinopriL 20 MG TABLET PO (08:42)
[2021-09-20] MEDS: GABAPENTIN 300 MG CAPSULE PO (08:42)
[2021-09-20] MEDS: OMEGA 3 POLYUNSAT FATTY ACIDS 1 GM CAP PO (08:43)
[2021-09-20] MEDS: CYANOCOBALAMIN 1,000 MCG TABLET 1000 MCG PO (08:43)
[2021-09-20] MEDS: amLODIPine BESYLATE 2.5 MG TABLET PO (09:05)
--- NOTE | 2021-09-20 09:05 | PM.IMPN ---
Progress Note: A&P Assessment and Plan (1) Anemia: Code(s): D64.9 - Anemia, unspecified Status: Acute Assessment and Plan: 09/14/21 # Generalized weakness likely due to underlying GI bleed and hypotension. Order PT OT # hypotension resolved with transfusion and IV resuscitation in the ER hold blood pressure medication # occult GI bleed recent esophageal dilatation and multiple biopsies taken query bleeding from these biopsy sites. GI has been consulted for further evaluation and management. Will place on PPI b.i.d. hold aspirin Plavix # acute on chronic anemia hemoglobin of 6.9 transfused 2 unit PRBC PE. INR normal platelets normal. Her baseline hemoglobin 13.6 back in 07/27/2021. Recent EGD with normal finding however was dilated empirically. Pathology biopsies has been negative 09/15/21 Hgb today 9.4. Continue checking H/H q6 hr. GI consulted. Taking patient for scope today. Continue PPI BID and hold aspirin/plavix. 09/16/21 Hgb stable 9.8. EGD with gastritis but no active bleeding. GI following. Diet as tolerated Continue PPI BID and hold asa/plavix. 09/17/21 Hgb slightly lower but stable. Cleared by GI for discharge with continued outpatient follow up. Per GI hold asa/plavix x7 days and continue PPI BID. (2) Occult GI bleeding: Code(s): R19.5 - Other fecal abnormalities Status: Acute Assessment and Plan: See above, anemia. Resolved. (3) Type 2 diabetes mellitus with hyperglycemia: Code(s): E11.65 - Type 2 diabetes mellitus with hyperglycemia Status: Acute Assessment and Plan: Glucose today 131 and patient has been NPO. Pt currently on home dose of Lantus 10 units QHS. Will initiate sliding scale insulin, she states she is on 3 units of Humalog TID currently and her sugars have been in the 400s recently at home. Check A1c. Will continue to monitor. Glucose trending up, in the 200s consistently, suspect due to patient eating better. Will continue 10 units of Lantus and increase sliding scale to moderate dosing. Glucose improved in the low 100s with moderate dose sliding scale. (4) Essential hypertension: Code(s): I10 - Essential (primary) hypertension Status: Acute Assessment and Plan: Presented to ED hypotensive 76/51. Improved s/p 2 units PRBC and IVF. Trending upward, per tech 172/87 but was not documented in EMR. Stopped IVF. She is still NPO at this time. Will resume home medications after her procedure if needed. Per patient, her doctor took her off her blood pressure medication and she only takes isosorbine mononitrate. She appears to be at her baseline in the 150s systolic. Will attempt to find out what she was on before. BP up to 190s systolic. Pt was on lisinopril 20 mg and unknown amount of amlodipine. Her bleach tester took her off of both earlier this month as she was reportedly bottoming out. She was hypotensive on arrival but once transfused has been hypertensive since that time. Will restart home medications, will start w/ 2.5 amlodipine and 20 lisinopril. Continue to monitor. She is asymptomatic, no [place] vision changes paresthesias or motor weakness. BP improved after restarting home meds. Continue to monitor. (5) Hyperlipidemia: Code(s): E78.5 - Hyperlipidemia, unspecified Status: Acute Assessment and Plan: LFTs elevated in June. Will recheck in AM as well as hepatitis panel. Hold statin for now. Repeat LFTs only minimally elevated, restart statin. 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 Continue levothyroxine. (8) Panhypopituitarism: Code(s): E23.0 - Hypopituitarism Status: Acute
[2021-09-20 10:21] LABS: Sodium Urine Random 123 meq/L
--- NOTE | 2021-09-20 11:17 | PM.DS ---
DS: Admitting Diagnosis Discharge Date 09/20/21 Admitting Diagnosis acute blood loss anemia DS: Discharge Diagnosis Discharge Diagnosis (1) Anemia: Code(s): D64.9 - Anemia, unspecified Status: Acute Assessment and Plan: # Generalized weakness likely due to underlying GI bleed and hypotension. Order PT OT # hypotension resolved with transfusion and IV resuscitation in the ER hold blood pressure medication # occult GI bleed recent esophageal dilatation and multiple biopsies taken query bleeding from these biopsy sites. GI has been consulted for further evaluation and management. Will place on PPI b.i.d. hold aspirin Plavix # acute on chronic anemia hemoglobin of 6.9 transfused 2 unit PRBC PE. INR normal platelets normal. Her baseline hemoglobin 13.6 back in 07/27/2021. Recent EGD with normal finding however was dilated empirically. Pathology biopsies has been negative 09/15/21 Hgb today 9.4. Continue checking H/H q6 hr. GI consulted. Taking patient for scope today. Continue PPI BID and hold aspirin/plavix. 09/16/21 Hgb stable 9.8. EGD with gastritis but no active bleeding. GI following. Diet as tolerated Continue PPI BID and hold asa/plavix. 09/17/21 Hgb slightly lower but stable. Cleared by GI for discharge with continued outpatient follow up. Per GI hold asa/plavix x7 days and continue PPI BID. (2) Occult GI bleeding: Code(s): R19.5 - Other fecal abnormalities Status: Acute Assessment and Plan: See above, anemia. Resolved. (3) Type 2 diabetes mellitus with hyperglycemia: Code(s): E11.65 - Type 2 diabetes mellitus with hyperglycemia Status: Acute Assessment and Plan: Glucose today 131 and patient has been NPO. Pt currently on home dose of Lantus 10 units QHS. Will initiate sliding scale insulin, she states she is on 3 units of Humalog TID currently and her sugars have been in the 400s recently at home. Check A1c. Will continue to monitor. Glucose trending up, in the 200s consistently, suspect due to patient eating better. Will continue 10 units of Lantus and increase sliding scale to moderate dosing. Glucose improved in the low 100s with moderate dose sliding scale. Will dc on same, continue AccuCheck at home and follow up with pcp this week. (4) Essential hypertension: Code(s): I10 - Essential (primary) hypertension Status: Acute Assessment and Plan: Presented to ED hypotensive 76/51. Improved s/p 2 units PRBC and IVF. Trending upward, per tech 172/87 but was not documented in EMR. Stopped IVF. She is still NPO at this time. Will resume home medications after her procedure if needed. Per patient, her doctor took her off her blood pressure medication and she only takes isosorbine mononitrate. She appears to be at her baseline in the 150s systolic. Will attempt to find out what she was on before. BP up to 190s systolic. Pt was on lisinopril 20 mg and unknown amount of amlodipine. Her jewelry making instructor took her off of both earlier this month as she was reportedly bottoming out. She was hypotensive on arrival but once transfused has been hypertensive since that time. Will restart home medications, will start w/ 2.5 amlodipine and 20 lisinopril. Continue to monitor. She is asymptomatic, no MILTON vision changes paresthesias or motor weakness. BP improved after restarting home meds. Continue on discharge. Monitor home blood pressures, keep log and f/u w/ pcp Monday. (5) Hyperlipidemia: Code(s): E78.5 - Hyperlipidemia, unspecified Status: Acute Assessment and Plan: LFTs elevated in June. Will recheck in AM as well as hepatitis panel. Hold statin for now. Repeat LFTs only minimally elevated, restart statin. (6) Central hypothyroidism: Code(s): E03.8 - Other specified hypothyroidism Status: Acute Assessment and Plan: Low TSH, stable T4. Continue levothyroxine.
[2021-09-20 11:45] LABS: Glucose Point of Care 174 mg/dl (65-105)
--- NOTE | 2021-09-21 10:10 | PC.NURSE ---
Spoke with patient and instructed since she is holding her Lasix, she should also hold her potassium until she sees her PCP on 09/24. Patient states agreement and understanding.
== END 2021-09-20 13:00 | disposition home health service (06) | DRG 378 ==
LOC: ANHED 20:45 → ANH3MED 22:22
PROVIDERS: Internal Medicine Gastroenterology; Physician Assistant; Admitting Provider Internal Medicine; Emergency Provider Emergency Medicine; PCP Internal Medicine; Visit Provider Internal Medicine
PROC: 0DJ08ZZ Inspection of Upper Intestinal Tract, Via Natural or Artificial Opening Endoscopic (ICD-10-PCS; CPT 43235; principal; 2021-09-15 15:00)
DX: K29.61 Other gastritis with bleeding (principal); E23.0 Hypopituitarism; E27.40 Unspecified adrenocortical insufficiency; D62 Acute posthemorrhagic anemia; N39.0 Urinary tract infection, site not specified; E22.2 Syndrome of inappropriate secretion of antidiuretic hormone; B96.1 Klebsiella pneumoniae [K. pneumoniae] as the cause of diseases classified elsewhere; E11.43 Type 2 diabetes mellitus with diabetic autonomic (poly)neuropathy; E11.65 Type 2 diabetes mellitus with hyperglycemia; K31.84 Gastroparesis; E11.42 Type 2 diabetes mellitus with diabetic polyneuropathy; E03.8 Other specified hypothyroidism; D44.4 Neoplasm of uncertain behavior of craniopharyngeal duct; I95.9 Hypotension, unspecified; E11.22 Type 2 diabetes mellitus with diabetic chronic kidney disease; I12.9 Hypertensive chronic kidney disease with stage 1 through stage 4 chronic kidney disease, or unspecified chronic kidney disease; N18.30 Chronic kidney disease, stage 3 unspecified; I25.10 Atherosclerotic heart disease of native coronary artery without angina pectoris; E78.5 Hyperlipidemia, unspecified; F32.9 Major depressive disorder, single episode, unspecified; R29.6 Repeated falls; G20 Parkinson's disease; R63.1 Polydipsia; R05.9 Cough, unspecified; Z86.010 Personal history of colon polyps; Z79.4 Long term (current) use of insulin; Z79.899 Other long term (current) drug therapy; Z95.1 Presence of aortocoronary bypass graft
CPT/HCPCS: 36415; 36430; 70450; 71045; 74177; 80048; 80053; 80074; 81001; 82948; 83036; 83605; 84300; 84439; 84443; 84480; 84484; 85014; 85018; 85025; 85027; 85610; 85730; 86850; 86900; 86901; 86920; 87040; 87077; 87086; 87088; 87186; 92526; 92610; 93005; 93970; 96361; 96365; 96374; 96375; 96376; 97110; 97116; 97161; 97165; 97530; 97535; 99285; A9270; C9113; G0378; J0131; J0696; J1200; J1815; J2704; J2765; J7030; J7040; J7120; P9016; Q9967

== ENCOUNTER 2021-09-23 08:49 | Outpatient (CLI) | payer MEDICARE, SELFPAY ==
[2021-09-23 09:26] LABS: Basophils Absolute Auto 0.1 K/mm3 (0.0-0.1); Basophils Percent Auto 0.5 % (0.2-1.2); Eosinophils Absolute Auto 0.3 K/mm3 (0-0.3); Eosinophils Percent Auto 2.6 % (0-4.4); Hematocrit 29.4 % (37.0-47.0); Hemoglobin 9.4 g/dL (12.0-15.0); Immature Granulocyte Absolute 0.05 K/mm3 (0.00-0.031); Immature Granulocyte Percent A 0.5 % (0-0.5); Lymphocytes Absolute Auto 3.62 K/mm3 (0.9-3.2); Lymphocytes Percent Auto 34.8 % (18.3-44.2); Mean Corpuscular Hemoglobin 27.8 pg (26-34); Mean Platelet Volume 10.7 fl (7.4-10.4); Monocytes Absolute Auto 0.9 K/mm3 (0.1-0.6); Monocytes Percent Auto 8.7 % (2.6-8.5); Neutrophils Absolute Auto 5.5 K/mm3 (1.3-6.7); Neutrophils Percent Auto 52.9 % (45.5-73.1); Platelet Count Result 272 k/mm3 (150-375); Red Blood Count 3.38 M/mm3 (4.2-5.4); Red Cell Distribution Width 15.6 % (11.5-14.5); White Blood Count 10.4 K/mm3 (4.5-10.0)
[2021-09-23 09:51] LABS: Anion Gap 8 mmol/L (8-16); Blood Urea Nitrogen 14 mg/dL (7-17); Calcium 8.5 mg/dL (8.4-10.2); Carbon Dioxide 22 mmol/L (22-30); Chloride 105 mmol/L (98-107); Estimated Glomerular Filt Rate > 60; Glucose 181 mg/dL (65-110); Sodium 135 mmol/L (137-145)
== END 2021-09-23 08:50 | disposition home or self-care (01) ==
PROVIDERS: PCP Internal Medicine; Visit Provider Physician Assistant
DX: E87.1 Hypo-osmolality and hyponatremia (principal); D64.9 Anemia, unspecified
CPT/HCPCS: 36415; 80048; 85025

== ENCOUNTER 2021-10-07 10:54 | Outpatient (NON) | payer MEDICARE, SELFPAY ==
[2021-10-07 11:03] LABS: Hematocrit 24.9 % (35.0-42.0)
[2021-10-07 11:13] LABS: Blood Urea Nitrogen 16 mg/dL (7-18); Calcium 8.8 mg/dL (8.5-10.1); Carbon Dioxide 29 mmol/L (21-32); Estimated Glomerular Filt Rate > 60; Glucose 99 mg/dL (70-99)
[2021-10-07 11:18] LABS: Anion Gap 10 mmol/L (8-16); Chloride 98 mmol/L (98-108); Osmolality Calculated 285 mOsm/kg (285-295); Sodium 137 mmol/L (136-145)
[2021-10-07 11:27] LABS: Potassium 2.4 mmol/L (3.5-5.1)
== END 2021-10-07 10:55 | disposition home or self-care (01) ==
LOC: CHSHH 10:56
PROVIDERS: Visit Provider Nurse Practitioner
DX: D64.9 Anemia, unspecified (principal); E87.6 Hypokalemia
CPT/HCPCS: 80048; 85014; 85018

== ENCOUNTER 2021-10-13 15:26 | Outpatient (NON) | payer MEDICARE, SELFPAY ==
[2021-10-13 15:53] LABS: Anion Gap 11 mmol/L (8-16); Blood Urea Nitrogen 17 mg/dL (7-18); Calcium 8.5 mg/dL (8.5-10.1); Carbon Dioxide 25 mmol/L (21-32); Chloride 99 mmol/L (98-108); Estimated Glomerular Filt Rate 60; Glucose 290 mg/dL (70-99); Osmolality Calculated 292 mOsm/kg (285-295); Potassium 3.6 mmol/L (3.5-5.1); Sodium 135 mmol/L (136-145)
== END 2021-10-13 15:27 | disposition home or self-care (01) ==
PROVIDERS: Visit Provider Internal Medicine
DX: D64.9 Anemia, unspecified (principal); N39.0 Urinary tract infection, site not specified; E11.65 Type 2 diabetes mellitus with hyperglycemia; E11.43 Type 2 diabetes mellitus with diabetic autonomic (poly)neuropathy
CPT/HCPCS: 36415; 80048

== ENCOUNTER 2021-10-14 13:26 | Outpatient (CLI) | payer MEDICARE, SELFPAY ==
[2021-10-14 14:09] LABS: Hematocrit 26.2 % (37.0-47.0); Hemoglobin 8.4 g/dL (12.0-15.0); Mean Corpuscular HGB Conc 32.1 g/dl (32-36); Mean Corpuscular Hemoglobin 26.3 pg (26-34); Mean Corpuscular Volume 82.1 fl (80-100); Mean Platelet Volume 10.6 fl (7.4-10.4); Platelet Count Result 197 k/mm3 (150-375); Red Blood Count 3.19 M/mm3 (4.2-5.4); Red Cell Distribution Width 15.1 % (11.5-14.5)
[2021-10-14 14:18] LABS: Anion Gap 7 mmol/L (8-16); Blood Urea Nitrogen 19 mg/dL (7-17); Calcium 9.1 mg/dL (8.4-10.2); Carbon Dioxide 23 mmol/L (22-30); Chloride 98 mmol/L (98-107); Estimated Glomerular Filt Rate > 60; Glucose 201 mg/dL (65-110); Potassium 4.8 mmol/L (3.4-5.0); Sodium 128 mmol/L (137-145)
== END 2021-10-14 13:27 | disposition home or self-care (01) ==
PROVIDERS: Nurse Practitioner; PCP Internal Medicine; Visit Provider Surgery
DX: E11.43 Type 2 diabetes mellitus with diabetic autonomic (poly)neuropathy (principal); E11.65 Type 2 diabetes mellitus with hyperglycemia; E23.2 Diabetes insipidus; I10 Essential (primary) hypertension; K31.84 Gastroparesis
CPT/HCPCS: 36415; 80048; 85027

== ENCOUNTER 2021-11-24 14:31 | Outpatient (CLI) | payer MEDICARE, SELFPAY ==
[2021-11-24 14:49] LABS: Hematocrit 30.5 % (37.0-47.0); Hemoglobin 9.8 g/dL (12.0-15.0)
== END 2021-11-24 14:32 | disposition home or self-care (01) ==
LOC: ANHLAB 14:35
PROVIDERS: PCP Internal Medicine; Visit Provider Internal Medicine
DX: D64.9 Anemia, unspecified (principal)
CPT/HCPCS: 36415; 85014; 85018

== ENCOUNTER 2022-01-05 15:12 | Outpatient (CLI) | payer MEDICARE, SELFPAY ==
[2022-01-05 16:16] LABS: Albumin Level 3.9 g/dL (3.5-5.1); Anion Gap 5 mmol/L (8-16); Blood Urea Nitrogen 17 mg/dL (7-17); Calcium 8.9 mg/dL (8.4-10.2); Carbon Dioxide 24 mmol/L (22-30); Chloride 97 mmol/L (98-107); Estimated Glomerular Filt Rate > 60; Glucose 263 mg/dL (65-110); Phosphorus 3.4 mg/dL (2.5-4.5); Potassium 4.1 mmol/L (3.4-5.0); Sodium 126 mmol/L (137-145)
[2022-01-05 16:33] LABS: Free T4 Free Thyroxine 1.67 ng/mL (0.78-2.19); Vitamin D 25 Hydroxy 63.3 ng/mL
[2022-01-08 07:00] LABS: Osmolality, Urine 886 mOsm/kg (50-1200)
== END 2022-01-05 15:13 | disposition home or self-care (01) ==
LOC: ANHWCLAB 15:14
PROVIDERS: PCP Internal Medicine; Visit Provider Internal Medicine Endocrinology, Diabetes & Metabolism
DX: E11.65 Type 2 diabetes mellitus with hyperglycemia (principal); E23.0 Hypopituitarism; M81.0 Age-related osteoporosis without current pathological fracture; R79.89 Other specified abnormal findings of blood chemistry
CPT/HCPCS: 36415; 80069; 82306; 83935; 83970; 84439

== ENCOUNTER 2022-01-06 06:12 | Outpatient (CLI) | payer MEDICARE, SELFPAY ==
--- NOTE | 2022-01-05 08:58 | PC.NURSE ---
Reviewed instructions with patient and spouse. No changes since previous interview. Pt and spouse verbalize understanding of prep and procedure.
--- NOTE | 2022-01-06 07:09 | SUR.OPER ---
Patient brought to GI Lab. Instructions for patient undergoing Capsule Endoscopy reviewed with patient. Consent form signed. Sensor array applied to patient's abdomen and connected to recorded. Patient swallowed capsule with ozs of water infused with Simethicone. Patient instructed they may have clear liquids at 0900 this AM and eat or drink at 1100 this AM. Patient instructed to return to GI Lab at 1500 this afternoon for removal of recording device and to call [phone] or to return to the hospital if any nausea and vomiting or abdominal pain is experienced.
--- NOTE | 2022-01-06 15:20 | SUR.OPER ---
Patient returned to the GI Lab at 1510 for recorder box removal. Patient voiced no complaints. States they have understanding of instructions. Patient left ambulatory.
== END 2022-01-06 06:13 | disposition home or self-care (01) ==
PROVIDERS: PCP Internal Medicine; Visit Provider Internal Medicine Gastroenterology
PROC: 0DJ07ZZ Inspection of Upper Intestinal Tract, Via Natural or Artificial Opening (ICD-10-PCS; CPT 91110; principal; 2022-01-06 07:00)
DX: Z01.818 Encounter for other preprocedural examination (principal); D50.9 Iron deficiency anemia, unspecified
CPT/HCPCS: 91110

== ENCOUNTER 2022-01-17 12:29 | Outpatient (CLI) | payer MEDICARE, SELFPAY ==
[2022-01-17 13:38] LABS: Anion Gap 8 mmol/L (8-16); Blood Urea Nitrogen 17 mg/dL (7-17); Calcium 8.4 mg/dL (8.4-10.2); Carbon Dioxide 22 mmol/L (22-30); Chloride 97 mmol/L (98-107); Estimated Glomerular Filt Rate > 60; Glucose 296 mg/dL (65-110); Potassium 4.7 mmol/L (3.4-5.0); Sodium 127 mmol/L (137-145)
[2022-01-20 04:38] LABS: Osmolality, Urine 756 mOsm/kg (50-1200)
[2022-01-22 12:41] LABS: Sodium Urine Random 42 meq/L
== END 2022-01-17 12:30 | disposition home or self-care (01) ==
PROVIDERS: PCP Internal Medicine; Visit Provider Internal Medicine Endocrinology, Diabetes & Metabolism
DX: E03.8 Other specified hypothyroidism (principal); E23.0 Hypopituitarism; E23.2 Diabetes insipidus; E27.40 Unspecified adrenocortical insufficiency
CPT/HCPCS: 36415; 80048; 83935; 84300

== ENCOUNTER 2022-01-21 14:21 | Outpatient (CLI) | payer MEDICARE, SELFPAY ==
[2022-01-21 15:58] LABS: Anion Gap 6 mmol/L (8-16); Blood Urea Nitrogen 12 mg/dL (7-17); Calcium 8.7 mg/dL (8.4-10.2); Carbon Dioxide 26 mmol/L (22-30); Chloride 97 mmol/L (98-107); Estimated Glomerular Filt Rate > 60; Glucose 303 mg/dL (65-110); Potassium 4.7 mmol/L (3.4-5.0); Sodium 129 mmol/L (137-145)
[2022-01-25 03:21] LABS: Osmolality, Urine 265 mOsm/kg (50-1200)
== END 2022-01-21 14:22 | disposition home or self-care (01) ==
LOC: ANHLAB 14:22
PROVIDERS: PCP Internal Medicine; Visit Provider Internal Medicine Endocrinology, Diabetes & Metabolism
DX: E23.0 Hypopituitarism (principal)
CPT/HCPCS: 36415; 80048; 83935

== ENCOUNTER 2022-01-27 08:31 | Outpatient (CLI) | payer MEDICARE, SELFPAY ==
[2022-01-27 09:16] LABS: Anion Gap 6 mmol/L (8-16); Blood Urea Nitrogen 11 mg/dL (7-17); Calcium 8.6 mg/dL (8.4-10.2); Carbon Dioxide 27 mmol/L (22-30); Chloride 103 mmol/L (98-107); Estimated Glomerular Filt Rate > 60; Glucose 134 mg/dL (65-110); Potassium 3.6 mmol/L (3.4-5.0); Sodium 136 mmol/L (137-145)
[2022-01-27 09:28] LABS: Sodium Urine Random 96 meq/L
[2022-01-30 03:16] LABS: Osmolality, Urine 520 mOsm/kg (50-1200)
== END 2022-01-27 08:32 | disposition home or self-care (01) ==
LOC: ANHLAB 08:38
PROVIDERS: PCP Internal Medicine; Visit Provider Internal Medicine Endocrinology, Diabetes & Metabolism
DX: M81.0 Age-related osteoporosis without current pathological fracture (principal); E23.0 Hypopituitarism; E11.65 Type 2 diabetes mellitus with hyperglycemia
CPT/HCPCS: 36415; 80048; 83935; 84300

== ENCOUNTER 2022-03-02 13:52 | Inpatient (IN) | payer MEDICARE, SELFPAY ==
--- NOTE | ~2022-03-02 | CT_ITS ---
EXAMINATION: CT lumbar spine [facility] [place] EXAM DATE: 03/02/2022 15:17 INDICATION: Fall, low back pain. TECHNIQUE: Spiral CT lumbar spine was performed without contrast. Axial, coronal and sagittal images of the lumbar spine were reviewed. The dose-length product (DLP) for this examination was 748.67 mGy- cm. The exposure was tailored according to patient size (auto mA exposure control), and iterative re construction (ASIR) was used as additional dose reduction technique. Correlation is made to lumbar x- ray 03/05/2021. FINDINGS: There is an acute L2 burst fracture with mild to moderate loss of its height anteriorly and centrally , mild loss posteriorly and with 5 mm of retropulsion causing mild to moderate central canal stenosis . Mild to moderate diffuse lumbar disc disease and facet arthropathy. There is mild to moderate left neural foraminal stenosis at L4-5, otherwise no more than mild central canal or neural foraminal sten osis. The vertebral bodies are aligned in the AP dimension. Sacrum, sacroiliac joints unremarkable. P araspinal soft tissue is unremarkable. IMPRESSION: 1. Acute L2 burst fracture with mild retropulsion, mild to moderate central canal stenosis. 2. Mild to moderate lumbar spondylosis. Reviewed, dictated and finalized at location A. IMPRESSION: 1. Acute L2 burst fracture with mild retropulsion, mild to moderate central ca nal stenosis. 2. Mild to moderate lumbar spondylosis.
--- NOTE | ~2022-03-02 | CT_ITS ---
EXAMINATION: CT brain wo [facility] EXAM DATE: 03/02/2022 15:17 INDICATION: Fall, head injury. TECHNIQUE: Spiral CT of the head was performed without contrast. Axial, coronal and sagittal images were reviewed. The dose-length product (DLP) for this examination was 605.33 mGy-cm. The exposure w as tailored according to patient size, and iterative reconstruction (ASIR) was used as additional dos e reduction technique. Comparison is made to prior examination from 09/15/2021. FINDINGS: There is no acute intraparenchymal hemorrhage. No evidence of intraparenchymal brain mass lesion. No evidence of acute infarction. Please note that initial head CT has limited sensitivity f or small or acute infarctions. Prior right temporal craniotomy. There is mild periventricular and s ubcortical hypodensity, nonspecific but probably related to small vessel ischemic disease. There is moderate prominence of the sulci and ventricles related to cerebral atrophy. There is intracranial carotid arteriosclerosis. There are no extra-axial collections. There is no mass effect or midline shift. Patient has had bilateral ocular lens surgery. Soft tissue is unremarkable. The visualized sinuses and mastoid air cells are well aerated. IMPRESSION: 1. No acute intracranial findings. 2. Chronic age related findings. Reviewed, dictated and finalized at location A.
--- NOTE | ~2022-03-02 | XR_ITS ---
EXAMINATION: XR chest 1V portable Exam Date/Time: 03/02/2022 15:23 CDT CLINICAL HISTORY: fall, HTN Comparison: 09/19/2021. RESULT: Lines, tubes, and devices: Cholecystectomy clips. Surgical clips over the mediastinum and GE junctio n. Lungs and pleura: Bibasilar linear scar/atelectasis. Otherwise clear. Cardiomediastinal silhouette: Stable cardiomediastinal silhouette. Other: No acute osseous or upper abdominal finding. IMPRESSION: No acute cardiopulmonary process. Reviewed, dictated and finalized at location K.
--- NOTE | ~2022-03-02 | XR_ITS ---
EXAM: XR pelvis 1-2V HISTORY: fall, TAILBONE PAIN COMPARISON: None available FINDINGS: Osteopenia. Degenerative changes in the lower lumbar spine and bilateral hips. No fracture or dislocation. Multiple pelvic phleboliths. Partially visualized bowel gas pattern is normal. IMPRESSION: No acute osseous finding in the pelvis. Reviewed, dictated and finalized at location K.
[2022-03-02 13:55] VITALS: BP 154/55; PULSE 125; RESP 16; TEMP 36.2; O2SAT 97
--- NOTE | 2022-03-02 13:57 | ECG_ITS ---
Measurements Intervals [place] Rate: 48 P: MD: 0 QRS: 21 QRSD: 92 T: 91 QT: 496 QTc: 446 Interpretive Statements SINUS BRADYCARDIA AND SINUS ARRHYTHMIA NONSPECIFIC ST & T-WAVE ABNORMALITY COMPARED TO ECG 09/14/2021 18:51:11 T-WAVE CHANGES ARE MORE PRONOUNCED Electronically Signed On 03-02-2022 14:28:48 CDT by Stephanie Johnston M.D.
--- NOTE | 2022-03-02 15:06 | PC.NURSE ---
Pt to XRAY/CT scan via stretcher at this time.
[2022-03-02 15:49] VITALS: BP 195/82; PULSE 63; RESP 18; O2SAT 94
[2022-03-02] MEDS: HYDROcodone/acetaminophen (*CRX) 5-325 MG TABLET 1 TAB PO (15:57)
--- NOTE | 2022-03-02 16:24 | ED.GENADULT ---
HPI - General Adult General Chief complaint: Fall Stated complaint: fall 2 days ago, back pain Time Seen by Provider: 03/02/22 14:49 Source: RN notes reviewed History of Present Illness HPI narrative: Patient presents emergency department from home for back pain. Patient states that 2 days ago she was walking when she tripped going over a curb and fell backwards landing on her back since that time she had increased pain in her lower back that does not radiate he states the pain is worse with sitting upright or trying to get around her house she she did take a gabapentin at home for pain this morning with minimal relief she did not denies any loss of consciousness but does state that she did hit her head she denies any neck pain chest pain shortness of breath abdominal pain nausea vomiting numbness or tingling of extremities bowel or bladder incontinence or any other symptoms Related Data Home Medications Medication Instructions Recorded Confirmed gabapentin 300 mg capsule 300 mg PO TID 12/25/19 01/27/22 sertraline 100 mg tablet 100 mg PO DAILY tablet 12/25/19 01/27/22 carbidopa 25 mg-levodopa 100 mg 2 tablet PO TID 12/31/19 01/27/22 tablet cholecalciferol (vitamin D3) 25 25 mcg PO DAILY 07/22/20 01/27/22 mcg (1,000 unit) capsule omega-3 fatty acids 1,000 mg 1,000 mg PO BID 12/07/20 01/27/22 capsule cyanocobalamin (vitamin B-12) 1,000 mcg PO DAILY 03/05/21 01/27/22 1,000 mcg capsule insulin glargine 100 unit/mL (3 12 unit SUBCUT DAILY ml 01/05/22 01/27/22 mL) subcutaneous pen Allergies Allergy/AdvReac Type Severity Reaction Status Date / Time metformin Allergy Unknown VERY LOW Verified 01/27/22 09:06 HEARTBEAT,breathing problems Sulfa (Sulfonamide Allergy Unknown Hives,break Verified 01/27/22 09:06 Antibiotics) out Review of Systems Review of Systems: Gen.: Denies fevers or chills ENT: Denies congestion Respiratory: Denies shortness of breath or cough CV: Denies chest pain or palpitations GI: Denies abdominal pain nausea, emesis denies incontinence Musculoskeletal: See HPI Neuro: Denies numbness, tingling, weakness or focal weakness Skin: Denies rash Except as documented, all other systems reviewed and negative [facility] [place] Past Medical History Medical History Acute blood loss anemia Adrenal insufficiency Adrenal insufficiency Central hypothyroidism Chronic kidney disease, stage 3 (moderate) Craniopharyngioma Depression Diabetes insipidus Diabetes mellitus Diabetes mellitus with hyperglycemia Diabetic gastroparesis Erosive gastritis Essential hypertension Frequent falls Hyperlipidemia Hypopituitarism Hypothyroidism, unspecified Melena Nausea and vomiting in adult Neurodermatitis Osteopenia Osteopenia Panhypopituitarism Parkinsons disease Pituitary deficiency Pituitary insufficiency Positive colorectal cancer screening using Cologuard test Premature atrial contractions Pyelonephritis Type 2 diabetes mellitus with hyperglycemia Surgical History Surgical History Failed CABG (coronary artery bypass graft) H/O heart bypass surgery Family History Family History Mother Cerebrovascular accident Family history of diabetes mellitus in first degree relative Patient's mother is Sibling Family history of chronic obstructive pulmonary disease Family history of diabetes mellitus in first degree relative Father Patient's father is Social History Social History Smoking status: Never smoker Second hand tobacco smoke exposure: No Alcohol intake: never Substance use: never Substance use type: does not use Gender identity (if verbalized by the patient): Female Sexual Orientation (if Verbalized by the Patient): Str
[2022-03-02 17:32] VITALS: BP 171/73; PULSE 60; RESP 15; O2SAT 99
--- NOTE | 2022-03-02 18:10 | PC.NURSE ---
Report received from Cass DOWNS and care of pt assumed at this time.
[2022-03-02 18:50] LABS: Basophils Percent Auto 0.2 % (0.2-1.2); Eosinophils Absolute Auto 0.3 K/mm3 (0-0.3); Eosinophils Percent Auto 2.6 % (0-4.4); Hematocrit 31.9 % (37.0-47.0); Immature Granulocyte Absolute 0.12 K/mm3 (0.00-0.031); Immature Granulocyte Percent A 1.2 % (0-0.5); Lymphocytes Absolute Auto 1.43 K/mm3 (0.9-3.2); Lymphocytes Percent Auto 14.1 % (18.3-44.2); Mean Corpuscular HGB Conc 31.3 g/dl (32-36); Mean Corpuscular Hemoglobin 25.1 pg (26-34); Mean Corpuscular Volume 79.9 fl (80-100); Mean Platelet Volume 10.6 fl (7.4-10.4); Monocytes Absolute Auto 0.8 K/mm3 (0.1-0.6); Monocytes Percent Auto 8.2 % (2.6-8.5); Neutrophils Absolute Auto 7.5 K/mm3 (1.3-6.7); Neutrophils Percent Auto 73.7 % (45.5-73.1); Platelet Count Result 177 k/mm3 (150-375); Red Blood Count 3.99 M/mm3 (4.2-5.4); Red Cell Distribution Width 15.9 % (11.5-14.5); White Blood Count 10.2 K/mm3 (4.5-10.0)
[2022-03-02 19:01] LABS: INR 1.1; Prothrombin Time 13.8 Seconds (11.1-14.7)
[2022-03-02 19:02] LABS: Partial Thromboplastin Time 23.5 SECONDS (22.3-36.8)
[2022-03-02 19:06] LABS: Anion Gap 6 mmol/L (8-16); Blood Urea Nitrogen 19 mg/dL (7-17); Calcium 8.9 mg/dL (8.4-10.2); Carbon Dioxide 27 mmol/L (22-30); Chloride 100 mmol/L (98-107); Estimated CRCL calculation 51 ml/min; Estimated Glomerular Filt Rate > 60; Glucose 312 mg/dL (65-110); Potassium 4.5 mmol/L (3.4-5.0); Sodium 133 mmol/L (137-145)
[2022-03-02 19:29] VITALS: BP 167/68; PULSE 62; RESP 14; O2SAT 95
[2022-03-02 19:29] LABS: SARS-CoV-2 RNA PCR Negative
--- NOTE | 2022-03-02 21:12 | PM.IMHP ---
H&P: HPI History of Present Illness Date/Time: 03/02/22 21:12 Chief Complaint: Low back pain Narrative: 71-year-old female with past medical history of prior mild dementia, brain tumor resection, Parkinson's disease, coronary artery disease, hypertension, and diabetes who presented to the ER with low back pain. The patient reports that with her Parkinson's disease she goes through phases where she falls a lot. She has been falling more over the last couple of weeks. Two days ago the patient was walking and tripped while going over curb and fell backwards landing on her back. Since that time she has had increased pain in her low back as worse with sitting and walking. She has been taking her gabapentin and tramadol at home with little improvement in her pain. She did hit her head when she fell but denies any loss of consciousness. She denies any upper back pain or neck pain. She does have chronic urinary incontinence and states that she does not realize that she needs to urinate until she is already be wet herself at baseline. She denies any bowel incontinence. She does have fluctuating diarrhea with constipation. She currently denies any current constipation. She denies any abdominal pain. She reports that her pain is a little bit better since she has had the TLSO brace placed. The patient is lethargic at this time she states that she goes through phases where she is more lethargic and sleepy and has evidently been having issues with this for the last week or so. She is alert and oriented x4 but is internal poor historian regarding her medical history. She does admit to having some mild dementia. She does not feel more confused than usual. She does have chronic neuropathy associated with her diabetes. Review of Systems Review of Systems: 12 systems were reviewed with pertinent positives and negatives per HPI. Except as documented in the HPI, all other systems were reviewed and are negative. [facility] Past Medical History Medical History (Updated 03/02/22 @ 22:41 by Cynthia Ordonez DO) Atrial fibrillation B12 deficiency Blindness of left eye Central hypothyroidism Central hypothyroidism CHF (congestive heart failure) Echo 2018: Pseudonormal diastolic dysfunction grade 2 Chronic kidney disease, stage 3 (moderate) Coronary artery disease With 1 stent and 3 vessel bypass Craniopharyngioma Dementia in Parkinson's disease Depression Diabetes insipidus Diabetes mellitus Diabetic gastroparesis Erosive gastritis Essential hypertension Frequent falls Hyperlipidemia Irritable bowel syndrome Neurodermatitis Occult GI bleeding Requiring transfusion 08/2021 Osteopenia Osteopenia Panhypopituitarism Parkinsons disease Premature atrial contractions Tactile hallucination TIA (transient ischemic attack) Type 2 diabetes mellitus treated with insulin Urge urinary incontinence Viral meningitis (~1993) Vitamin D deficiency Surgical History Surgical History (Updated 03/02/22 @ 21:49 by Cynthia Ordonez, DO) Failed CABG (coronary artery bypass graft) H/O heart bypass surgery (~2003) 3 vessel performed at [facility] History of cardiac catheterization (06/2019) [place] vessel coronary artery disease with CT 0 of distal RCA which is supplied by saphenous vein graft, lopez graft to OM is patent with cher-ae heights OM diminutive after anastomosis, radial graft arising from the LOPEZ to mid distal LAD appears to be occluded with retrograde flow to the occluded radial graft, cher-ae heights coronary angiogram demonstrates 40% diffuse stenosis of proximal LAD without 50-60% InStent restenosis in the mid LAD with large size diagonal branch arising distal to the stent no intervention performed but recommended considering re catheterization with mid LAD stented segments which could be intervened on to restore flow to the 2nd diagonal branch and mid distal LAD History of colonoscopy with polypectomy History of craniotomy (~2011) History of esophagogastroduodenoscopy
[2022-03-02 22:00] VITALS: BP 157/53; PULSE 59; RESP 16; TEMP 36.1; O2SAT 95
[2022-03-02 22:06] VITALS: BMI 26.6
--- NOTE | 2022-03-02 22:33 | ADMGEN ---
This patient, Darlyn Vazquze, was admitted to [facility] Surg Room 333-01. Patient/family oriented to hospital policies and general routines including ID bracelet, bed and alarms, visiting hours, pain management, procedures, bathroom and other care routines, personal items, smoking policy, room service/diet, and visiting hours. Information on how to activate the Rapid Response Team has been discussed. Patient/Family are encouraged to report perceived risks to care and to ask questions if they do not understand what they are told or what they should do.
[2022-03-02 23:29] VITALS: PULSE 61
[2022-03-02] MEDS: PROPRANOLOL HCL 20 MG TABLET PO (23:29)
[2022-03-02] MEDS: CARBIDOPA/LEVODOPA 25/100 MG TABLET 2 TABLET PO (23:29)
[2022-03-02] MEDS: QUEtiapine FUMARATE 25 MG TABLET 50 MG PO (23:29)
[2022-03-02] MEDS: DESMOPRESSIN ACETATE 0.1 MG TABLET 0.05 MG PO (23:30)
[2022-03-02] MEDS: HYDROCORTISONE 10 MG TABLET 5 MG PO (23:30)
[2022-03-03 01:37] LABS: Glucose Point of Care 224 mg/dl (65-105)
[2022-03-03] MEDS: traMADol HCL (*CRX) 50 MG TABLET PO ×3 (05:17→15:09)
[2022-03-03] MEDS: LEVOTHYROXINE SODIUM 88 MCG TABLET PO (05:17)
[2022-03-03 06:00] VITALS: BP 152/86; PULSE 57; RESP 16; TEMP 36.1; O2SAT 90
[2022-03-03 06:22] LABS: Basophils Percent Auto 0.3 % (0.2-1.2); Eosinophils Absolute Auto 0.3 K/mm3 (0-0.3); Eosinophils Percent Auto 3.6 % (0-4.4); Hematocrit 31.8 % (37.0-47.0); Hemoglobin 9.7 g/dL (12.0-15.0); Immature Granulocyte Percent A 1.1 % (0-0.5); Lymphocytes Absolute Auto 2.08 K/mm3 (0.9-3.2); Lymphocytes Percent Auto 23.6 % (18.3-44.2); Mean Corpuscular HGB Conc 30.5 g/dl (32-36); Mean Corpuscular Hemoglobin 24.4 pg (26-34); Mean Corpuscular Volume 80.1 fl (80-100); Mean Platelet Volume 10.9 fl (7.4-10.4); Monocytes Absolute Auto 0.9 K/mm3 (0.1-0.6); Monocytes Percent Auto 9.9 % (2.6-8.5); Neutrophils Absolute Auto 5.4 K/mm3 (1.3-6.7); Neutrophils Percent Auto 61.5 % (45.5-73.1); Platelet Count Result 172 k/mm3 (150-375); Red Blood Count 3.97 M/mm3 (4.2-5.4); Red Cell Distribution Width 15.8 % (11.5-14.5); White Blood Count 8.8 K/mm3 (4.5-10.0)
[2022-03-03 06:36] LABS: Anion Gap 7 mmol/L (8-16); Blood Urea Nitrogen 15 mg/dL (7-17); Calcium 8.6 mg/dL (8.4-10.2); Carbon Dioxide 29 mmol/L (22-30); Chloride 99 mmol/L (98-107); Estimated CRCL calculation 66 ml/min; Estimated Glomerular Filt Rate > 60; Glucose 205 mg/dL (65-110); Potassium 3.8 mmol/L (3.4-5.0); Sodium 135 mmol/L (137-145)
[2022-03-03 07:56] LABS: Glucose Point of Care 197 mg/dl (65-105)
[2022-03-03] MEDS: QUEtiapine FUMARATE 25 MG TABLET 50 MG PO ×3 (08:47→17:28)
[2022-03-03] MEDS: ROSUVASTATIN 10 MG TABLET 20 MG PO (08:47)
[2022-03-03] MEDS: CARBIDOPA/LEVODOPA 25/100 MG TABLET 2 TABLET PO ×3 (08:47→17:27)
[2022-03-03] MEDS: CHOLECALCIFEROL 1,000 UNITS TABLET 1000 UNITS PO (08:48)
[2022-03-03] MEDS: DESMOPRESSIN ACETATE 0.1 MG TABLET 0.05 MG PO ×3 (08:48→17:28)
[2022-03-03] MEDS: OMEGA 3 POLYUNSAT FATTY ACIDS 1 GM CAP PO ×2 (08:49→17:29)
[2022-03-03] MEDS: GABAPENTIN 300 MG CAPSULE PO ×3 (08:49→17:29)
[2022-03-03] MEDS: CYANOCOBALAMIN 1,000 MCG TABLET 1000 MCG PO (08:49)
[2022-03-03] MEDS: CHLORTHALIDONE 25 MG TABLET PO (08:49)
[2022-03-03] MEDS: CLOPIDOGREL BISULFATE 75 MG TABLET PO (08:49)
[2022-03-03 08:50] VITALS: PULSE 66
[2022-03-03] MEDS: POTASSIUM CHLORIDE 20 MEQ TABLET.ER PO ×2 (08:50→17:30)
[2022-03-03] MEDS: lisinopriL 20 MG TABLET PO (08:50)
[2022-03-03] MEDS: ISOSORBIDE MONONITRATE 60 MG TAB.ER.24H PO (08:50)
[2022-03-03] MEDS: SERTRALINE HCL 50 MG TABLET 100 MG PO (08:50)
[2022-03-03] MEDS: AMIODARONE HCL 200 MG TABLET PO (08:50)
--- NOTE | 2022-03-03 11:30 | PM.IMPN ---
Progress Note: A&P Assessment and Plan (1) Burst fracture of lumbar vertebra: Qualifiers: Encounter type: initial encounter Fracture type: closed Qualified Code(s): S32.001A - Stable burst fracture of unspecified lumbar vertebra, initial encounter for closed fracture Code(s): S32.001A - Stable burst fracture of unspecified lumbar vertebra, initial encounter for closed fracture Status: Acute Assessment and Plan: Compression fracture of L1. Secondary to recent fall TLSO brace in place place patient on tramadol 50 mg q.4 hours p.r.n. pain PT and OT evaluate patient Consider rehab placement given her recent multiple falls (2) Type 2 diabetes mellitus with hyperglycemia, with long-term current use of insulin: Code(s): E11.65 - Type 2 diabetes mellitus with hyperglycemia; Z79.4 - [facility] (current) use of insulin Status: Acute Assessment and Plan: Glucose 205 Diabetes mellitus with hyperglycemia Continue home Lantus Placed on moderate sliding scale insulin Accu-Cheks a.c. HS hypoglycemia protocol Trend glucose Adjust therapy as indicated (3) Afib: Code(s): I48.91 - Unspecified atrial fibrillation Status: Acute Assessment and Plan: history of chronic AFib Not on anticoagulation due to frequent falls Rate seems to be controlled Continue propranolol and amiodarone Trend heart rate Adjust therapy as indicated (4) Parkinson disease: Code(s): G20 - Parkinson's disease Status: Acute Assessment and Plan: Probably causing the falls Continue carbidopa/levodopa 25/100mg PO 2 tabs TID PT/OT (5) Essential hypertension: Code(s): I10 - Essential (primary) hypertension Status: Acute Assessment and Plan: Current BP is 152/86 Continue home amiodarone, chlorthalidone, imdur, lisinopril, propanolol Trend BP Adjust therapy as indicated (6) Anemia: Code(s): D64.9 - Anemia, unspecified Status: Acute Assessment and Plan: H/H 9.7/31.8 Anemia labs in the am Looks like she takes B12 at home will continue Suspect that there is iron component For now will say this is iron deficient anemia Supplement as indicated Trend H/H Time Spent With Patient Time with patient: Greater than 35 minutes Subjective Date/time seen: 03/03/22 1130 Interval history: Date/Time: 03/02/22 21:12 Narrative: 71-year-old female with past medical history of prior mild dementia, brain tumor resection, Parkinson's disease, coronary artery disease, hypertension, and diabetes who presented to the ER with low back pain. The patient reports that with her Parkinson's disease she goes through phases where she falls a lot. She has been falling more over the last couple of weeks. Two days ago the patient was walking and tripped while going over curb and fell backwards landing on her back. Since that time she has had increased pain in her low back as worse with sitting and walking. She has been taking her gabapentin and tramadol at home with little improvement in her pain. She did hit her head when she fell but denies any loss of consciousness. She denies any upper back pain or neck pain. She does have chronic urinary incontinence and states that she does not realize that she needs to urinate until she is already be wet herself at baseline. She denies any bowel incontinence. She does have fluctuating diarrhea with constipation. She currently denies any current constipation. She denies any abdominal pain. She reports that her pain is a little bit better since she has had the TLSO brace placed. The patient is lethargic at this time she states that she goes through phases where she is more lethargic and sleepy and has evidently been having issues with this for the last week or so. She is alert and oriented x4 but is internal poor historian regarding her me
--- NOTE | 2022-03-03 11:30 | P.PNIM_ITS ---
Progress Note: A&P Assessment and Plan (1) Burst fracture of lumbar vertebra: Qualifiers: Encounter type: initial encounter Fracture type: closed Qualified Code(s): S32.001A - Stable burst fracture of unspecified lumbar vertebra, initial encounter for closed fracture Code(s): S32.001A - Stable burst fracture of unspecified lumbar vertebra, initial encounter for closed fracture Status: Acute Assessment and Plan: * Compression fracture of L1. * Secondary to recent fall * TLSO brace in place * place patient on tramadol 50 mg q.4 hours p.r.n. 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 HS * hypoglycemia protocol * Trend glucose * Adjust therapy as indicated (3) Afib: Code(s): I48.91 - Unspecified atrial fibrillation Status: Acute Assessment and Plan: * history of chronic AFib * Not on anticoagulation due to frequent falls * Rate seems to be controlled * Continue propranolol and amiodarone * Trend heart rate * Adjust therapy as indicated (4) Parkinson disease: Code(s): G20 - Parkinson's disease Status: Acute Assessment and Plan: * Probably causing the falls * Continue carbidopa/levodopa 25/100mg PO 2 tabs TID * PT/OT (5) Essential hypertension: Code(s): I10 - Essential (primary) hypertension Status: Acute Assessment and Plan: * Current BP is 152/86 * Continue home amiodarone, chlorthalidone, imdur, lisinopril, propanolol * Trend BP * Adjust therapy as indicated (6) Anemia: Code(s): D64.9 - Anemia, unspecified Status: Acute Assessment and Plan: * H/H 9.7/31.8 * Anemia labs in the am * Looks like she takes B12 at home will continue * Suspect that there is iron component * For now will say this is iron deficient anemia * Supplement as indicated * Trend H/H Time Spent With Patient Time with patient: Greater than 35 minutes Subjective Date/time seen: 03/03/22 1130 Interval history: Date/Time: 03/02/22 21:12 Narrative: 71-year-old female with past medical history of prior mild dementia, brain tumor resection, Parkinson's disease, coronary artery disease, hypertension, and diabetes who presented to the ER with low back pain. The patient reports that with her Parkinson's disease she goes through phases where she falls a lot. She has been falling more over the last couple of weeks. Two days ago the patient was walking and tripped while going over curb and fell backwards landing on her back. Since that time she has had increased pain in her low back as worse with sitting and walking. She has been taking her gabapentin and tramadol at home with little improvement in her pain. She did hit her head when she fell but denies any loss of consciousness. She denies any upper back pain or neck pain. She does have chronic urinary incontinence and states that she does not realize that she needs to urinate until she is already be wet herself at baseline. She denies
[2022-03-03 11:44] LABS: Glucose Point of Care 176 mg/dl (65-105)
[2022-03-03 12:17] LABS: Glucose Point of Care 201 mg/dl (65-105)
[2022-03-03] MEDS: INSULIN ASPART (*BKC) 100 UNITS/ML SUB-Q (12:19)
[2022-03-03 14:00] VITALS: BP 138/55; PULSE 59; RESP 18; TEMP 35.9; O2SAT 99
[2022-03-03 16:39] LABS: Glucose Point of Care 183 mg/dl (65-105)
[2022-03-03] MEDS: MORPHINE SULFATE (*CRX) 2 MG/ML INJ 1 MG IV PUSH (17:34)
[2022-03-03 21:23] VITALS: PULSE 59
[2022-03-03] MEDS: HYDROCORTISONE 10 MG TABLET 5 MG PO (21:23)
[2022-03-03] MEDS: PROPRANOLOL HCL 20 MG TABLET PO (21:23)
[2022-03-03 21:42] VITALS: BP 126/64; PULSE 54; RESP 16; TEMP 36.3; O2SAT 96
[2022-03-04] VITALS (8 sets, daily range): BP systolic 113–147; BP diastolic 57–60; PULSE 56–61; RESP 16–18; TEMP 36.5–36.8; O2SAT 91–95
[2022-03-04] MEDS: MORPHINE SULFATE (*CRX) 2 MG/ML INJ 1 MG IV PUSH ×3 (02:30→18:31)
[2022-03-04 05:57] LABS: Basophils Absolute Auto 0.1 K/mm3 (0.0-0.1); Basophils Percent Auto 0.7 % (0.2-1.2); Eosinophils Absolute Auto 0.4 K/mm3 (0-0.3); Eosinophils Percent Auto 3.7 % (0-4.4); Hematocrit 32.5 % (37.0-47.0); Hemoglobin 10.5 g/dL (12.0-15.0); Immature Granulocyte Percent A 0.8 % (0-0.5); Lymphocytes Absolute Auto 3.29 K/mm3 (0.9-3.2); Lymphocytes Percent Auto 27.9 % (18.3-44.2); Mean Corpuscular HGB Conc 32.3 g/dl (32-36); Mean Corpuscular Hemoglobin 25.1 pg (26-34); Mean Corpuscular Volume 77.8 fl (80-100); Mean Platelet Volume 10.2 fl (7.4-10.4); Monocytes Absolute Auto 1.2 K/mm3 (0.1-0.6); Monocytes Percent Auto 10.2 % (2.6-8.5); Neutrophils Absolute Auto 6.7 K/mm3 (1.3-6.7); Neutrophils Percent Auto 56.7 % (45.5-73.1); Platelet Count Result 215 k/mm3 (150-375); Red Blood Count 4.18 M/mm3 (4.2-5.4); White Blood Count 11.8 K/mm3 (4.5-10.0)
[2022-03-04] MEDS: traMADol HCL (*CRX) 50 MG TABLET PO (06:12)
[2022-03-04] MEDS: LEVOTHYROXINE SODIUM 88 MCG TABLET PO (06:12)
[2022-03-04 06:13] LABS: Alanine Aminotransferase 12 U/L (4-35); Albumin Level 3.8 g/dL (3.5-5.1); Alkaline Phosphatase 122 U/L (38-126); Anion Gap 8 mmol/L (8-16); Aspartate Amino Transferase 61 U/L (14-36); Bilirubin,Total 0.6 mg/dL (0.2-1.3); Blood Urea Nitrogen 18 mg/dL (7-17); Calcium 8.4 mg/dL (8.4-10.2); Carbon Dioxide 24 mmol/L (22-30); Chloride 95 mmol/L (98-107); Estimated CRCL calculation 51 ml/min; Estimated Glomerular Filt Rate > 60; Glucose 186 mg/dL (65-110); Magnesium 1.9 mg/dL (1.6-2.3); Potassium 4.4 mmol/L (3.4-5.0); Sodium 127 mmol/L (137-145)
[2022-03-04 08:18] LABS: Lactate Dehydrogenase 609 U/L (313-618)
[2022-03-04 08:26] LABS: Transferrin 249 mg/dL (206-381)
[2022-03-04 08:43] LABS: Glucose Point of Care 189 mg/dl (65-105)
[2022-03-04 09:01] LABS: Iron 41 ug/dL (37-170)
[2022-03-04 09:11] LABS: Percent Iron Saturation 13 % (20-50)
[2022-03-04 09:31] LABS: Folic Acid 9.7 ng/mL (2.76->20); Vitamin B12 > 1000.0 pg/mL (239-931)
[2022-03-04 09:33] LABS: Thyroid Stimulating Hormone Reflex < 0.015 uIU/mL (0.465-4.68)
[2022-03-04] MEDS: POTASSIUM CHLORIDE 20 MEQ TABLET.ER PO ×2 (09:56→18:35)
[2022-03-04] MEDS: GABAPENTIN 300 MG CAPSULE PO ×3 (09:56→18:36)
[2022-03-04] MEDS: ISOSORBIDE MONONITRATE 60 MG TAB.ER.24H PO (09:57)
[2022-03-04] MEDS: CHOLECALCIFEROL 1,000 UNITS TABLET 1000 UNITS PO (09:57)
[2022-03-04] MEDS: OMEGA 3 POLYUNSAT FATTY ACIDS 1 GM CAP PO ×2 (09:57→18:35)
[2022-03-04] MEDS: CLOPIDOGREL BISULFATE 75 MG TABLET PO (09:57)
[2022-03-04] MEDS: ROSUVASTATIN 10 MG TABLET 20 MG PO (09:58)
[2022-03-04] MEDS: QUEtiapine FUMARATE 25 MG TABLET 50 MG PO ×3 (09:58→18:35)
[2022-03-04] MEDS: SERTRALINE HCL 50 MG TABLET 100 MG PO (09:58)
[2022-03-04] MEDS: CARBIDOPA/LEVODOPA 25/100 MG TABLET 2 TABLET PO ×3 (09:58→18:35)
[2022-03-04] MEDS: DESMOPRESSIN ACETATE 0.1 MG TABLET 0.05 MG PO ×3 (09:58→18:35)
[2022-03-04] MEDS: lisinopriL 20 MG TABLET PO (09:59)
[2022-03-04] MEDS: CYANOCOBALAMIN 1,000 MCG TABLET 1000 MCG PO (09:59)
[2022-03-04] MEDS: CHLORTHALIDONE 25 MG TABLET PO (09:59)
[2022-03-04] MEDS: AMIODARONE HCL 200 MG TABLET PO (10:00)
--- NOTE | 2022-03-04 10:45 | P.PNIM_ITS ---
Progress Note: A&P Assessment and Plan (1) Burst fracture of lumbar vertebra: Qualifiers: Encounter type: initial encounter Fracture type: closed Qualified Code(s): S32.001A - Stable burst fracture of unspecified lumbar vertebra, initial encounter for closed fracture Code(s): S32.001A - Stable burst fracture of unspecified lumbar vertebra, initial encounter for closed fracture Status: Acute Assessment and Plan: * Compression fracture of L1. * Secondary to recent fall * TLSO brace in place * place patient on tramadol 50 mg q.4 hours p.r.n. 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 HS * hypoglycemia protocol * Trend glucose * Adjust therapy as indicated (3) Afib: Code(s): I48.91 - Unspecified atrial fibrillation Status: Acute Assessment and Plan: * history of chronic AFib * Not on anticoagulation due to frequent falls * Rate seems to be controlled * Continue propranolol and amiodarone * Trend heart rate * Adjust therapy as indicated (4) Parkinson disease: Code(s): G20 - Parkinson's disease Status: Acute Assessment and Plan: * Probably causing the falls * Continue carbidopa/levodopa 25/100mg PO 2 tabs TID * PT/OT (5) Essential hypertension: Code(s): I10 - Essential (primary) hypertension Status: Acute Assessment and Plan: * Current BP is 121/58 * Continue home amiodarone, chlorthalidone, imdur, lisinopril, propanolol * Trend BP * Adjust therapy as indicated (6) Anemia: Code(s): D64.9 - Anemia, unspecified Status: Acute Assessment and Plan: * H/H 10.5/32.5 * Anemia labs in the am * Looks like she takes B12 at home will continue * Suspect that there is iron component * For now will say this is iron deficient anemia * Supplement as indicated * Trend H/H Subjective Date/time seen: 03/04/22 10:45 Interval history: Date/Time: 03/02/22 21:12 Narrative: 71-year-old female with past medical history of prior mild dementia, brain tumor resection, Parkinson's disease, coronary artery disease, hypertension, and diabetes who presented to the ER with low back pain. The patient reports that with her Parkinson's disease she goes through phases where she falls a lot. She has been falling more over the last couple of weeks. Two days ago the patient was walking and tripped while going over curb and fell backwards landing on her back. Since that time she has had increased pain in her low back as worse with sitting and walking. She has been taking her gabapentin and tramadol at home with little improvement in her pain. She did hit her head when she fell but denies any loss of consciousness. She denies any upper back pain or neck pain. She does have chronic urinary incontinence and states that she does not realize that she needs to urinate until she is already be wet herself at baseline. She denies any bowel incontinence. She does have fluctuating diarrhea with consti
--- NOTE | 2022-03-04 10:45 | PM.IMPN ---
Progress Note: A&P Assessment and Plan (1) Burst fracture of lumbar vertebra: Qualifiers: Encounter type: initial encounter Fracture type: closed Qualified Code(s): S32.001A - Stable burst fracture of unspecified lumbar vertebra, initial encounter for closed fracture Code(s): S32.001A - Stable burst fracture of unspecified lumbar vertebra, initial encounter for closed fracture Status: Acute Assessment and Plan: Compression fracture of L1. Secondary to recent fall TLSO brace in place place patient on tramadol 50 mg q.4 hours p.r.n. 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 HS hypoglycemia protocol Trend glucose Adjust therapy as indicated (3) Afib: Code(s): I48.91 - Unspecified atrial fibrillation Status: Acute Assessment and Plan: history of chronic AFib Not on anticoagulation due to frequent falls Rate seems to be controlled Continue propranolol and amiodarone Trend heart rate Adjust therapy as indicated (4) Parkinson disease: Code(s): G20 - Parkinson's disease Status: Acute Assessment and Plan: Probably causing the falls Continue carbidopa/levodopa 25/100mg PO 2 tabs TID PT/OT (5) Essential hypertension: Code(s): I10 - Essential (primary) hypertension Status: Acute Assessment and Plan: Current BP is 121/58 Continue home amiodarone, chlorthalidone, imdur, lisinopril, propanolol Trend BP Adjust therapy as indicated (6) Anemia: Code(s): D64.9 - Anemia, unspecified Status: Acute Assessment and Plan: H/H 10.5/32.5 Anemia labs in the am Looks like she takes B12 at home will continue Suspect that there is iron component For now will say this is iron deficient anemia Supplement as indicated Trend H/H Subjective Date/time seen: 03/04/22 10:45 Interval history: Date/Time: 03/02/22 21:12 Narrative: 71-year-old female with past medical history of prior mild dementia, brain tumor resection, Parkinson's disease, coronary artery disease, hypertension, and diabetes who presented to the ER with low back pain. The patient reports that with her Parkinson's disease she goes through phases where she falls a lot. She has been falling more over the last couple of weeks. Two days ago the patient was walking and tripped while going over curb and fell backwards landing on her back. Since that time she has had increased pain in her low back as worse with sitting and walking. She has been taking her gabapentin and tramadol at home with little improvement in her pain. She did hit her head when she fell but denies any loss of consciousness. She denies any upper back pain or neck pain. She does have chronic urinary incontinence and states that she does not realize that she needs to urinate until she is already be wet herself at baseline. She denies any bowel incontinence. She does have fluctuating diarrhea with constipation. She currently denies any current constipation. She denies any abdominal pain. She reports that her pain is a little bit better since she has had the TLSO brace placed. The patient is lethargic at this time she states that she goes through phases where she is more lethargic and sleepy and has evidently been having issues with this for the last week or so. She is alert and oriented x4 but is internal poor historian regarding her medical history. She does admit to having some mild dementia. She d
[2022-03-04 10:55] LABS: Free T4 Free Thyroxine Reflex 1.63 ng/dL (0.78-2.19)
[2022-03-04 12:02] LABS: Glucose Point of Care 188 mg/dl (65-105)
[2022-03-04 12:10] LABS: Total Triiodothyronine (T3) 0.69 NG/ML (0.97-1.69)
[2022-03-04] MEDS: HYDROcodone/acetaminophen (*CRX) 5-325 MG TABLET 1 TAB PO ×2 (12:52→20:54)
--- NOTE | 2022-03-04 13:00 | PCPTNOTE ---
Attempted to see patient this afternoon, however patient was sitting in recliner and eating her lunch. Patient did shake her head no when therapist first introduced herself when walking into the room. Therapist told patient and her that therapy would check back later to see her. Will plan to continue treatment per plan of care.
[2022-03-04 17:12] LABS: Glucose Point of Care 172 mg/dl (65-105)
[2022-03-04 20:06] LABS: Creatinine Urine 133.4 mg/dL; Urea Random Urine 770 MG/DL
[2022-03-04 20:07] LABS: Sodium Urine Random 77 meq/L
[2022-03-04] MEDS: PROPRANOLOL HCL 20 MG TABLET PO (20:53)
[2022-03-04] MEDS: HYDROCORTISONE 10 MG TABLET 5 MG PO (20:53)
[2022-03-04 21:03] LABS: Glucose Point of Care 166 mg/dl (65-105)
[2022-03-05] MEDS: LEVOTHYROXINE SODIUM 88 MCG TABLET PO (05:55)
[2022-03-05 06:00] VITALS: BP 140/52; PULSE 52; RESP 18; TEMP 37.2; O2SAT 90
[2022-03-05 07:51] LABS: Glucose Point of Care 172 mg/dl (65-105)
[2022-03-05 08:24] LABS: Basophils Percent Auto 0.5 % (0.2-1.2); Eosinophils Absolute Auto 0.3 K/mm3 (0-0.3); Eosinophils Percent Auto 3.6 % (0-4.4); Hematocrit 31.3 % (37.0-47.0); Hemoglobin 9.8 g/dL (12.0-15.0); Immature Granulocyte Absolute 0.09 K/mm3 (0.00-0.031); Lymphocytes Absolute Auto 2.31 K/mm3 (0.9-3.2); Lymphocytes Percent Auto 26.1 % (18.3-44.2); Mean Corpuscular HGB Conc 31.3 g/dl (32-36); Mean Corpuscular Hemoglobin 24.6 pg (26-34); Mean Corpuscular Volume 78.4 fl (80-100); Monocytes Absolute Auto 0.9 K/mm3 (0.1-0.6); Monocytes Percent Auto 10.5 % (2.6-8.5); Neutrophils Absolute Auto 5.2 K/mm3 (1.3-6.7); Neutrophils Percent Auto 58.3 % (45.5-73.1); Platelet Count Result 203 k/mm3 (150-375); Red Blood Count 3.99 M/mm3 (4.2-5.4); Red Cell Distribution Width 15.8 % (11.5-14.5); White Blood Count 8.8 K/mm3 (4.5-10.0)
[2022-03-05 08:34] LABS: Alanine Aminotransferase 11 U/L (4-35); Albumin Level 3.5 g/dL (3.5-5.1); Alkaline Phosphatase 119 U/L (38-126); Anion Gap 6 mmol/L (8-16); Aspartate Amino Transferase 86 U/L (14-36); Bilirubin,Total 0.7 mg/dL (0.2-1.3); Blood Urea Nitrogen 15 mg/dL (7-17); Carbon Dioxide 25 mmol/L (22-30); Chloride 93 mmol/L (98-107); Estimated CRCL calculation 58 ml/min; Estimated Glomerular Filt Rate > 60; Glucose 162 mg/dL (65-110); Sodium 124 mmol/L (137-145)
--- NOTE | 2022-03-05 08:40 | PM.IMPN ---
Progress Note: A&P Assessment and Plan (1) Burst fracture of lumbar vertebra: Qualifiers: Encounter type: initial encounter Fracture type: closed Qualified Code(s): S32.001A - Stable burst fracture of unspecified lumbar vertebra, initial encounter for closed fracture Code(s): S32.001A - Stable burst fracture of unspecified lumbar vertebra, initial encounter for closed fracture Status: Acute Assessment and Plan: Compression fracture of L1. Secondary to recent fall TLSO brace in place place patient on tramadol 50 mg q.4 hours p.r.n. pain, added morphine as well PT and OT evaluate patient Consider rehab placement given her recent multiple falls (2) Type 2 diabetes mellitus with hyperglycemia, with long-term current use of insulin: Code(s): E11.65 - Type 2 diabetes mellitus with hyperglycemia; Z79.4 - [employer] (current) use of insulin Status: Acute Assessment and Plan: Glucose 162 Diabetes mellitus with hyperglycemia Continue home Lantus Placed on moderate sliding scale insulin Accu-Cheks a.c. HS hypoglycemia protocol Trend glucose Adjust therapy as indicated (3) Afib: Code(s): I48.91 - Unspecified atrial fibrillation Status: Acute Assessment and Plan: history of chronic AFib Not on anticoagulation due to frequent falls Rate seems to be controlled Continue propranolol and amiodarone Trend heart rate Adjust therapy as indicated (4) Parkinson disease: Code(s): G20 - Parkinson's disease Status: Acute Assessment and Plan: Probably causing the falls Continue carbidopa/levodopa 25/100mg PO 2 tabs TID PT/OT (5) Essential hypertension: Code(s): I10 - Essential (primary) hypertension Status: Acute Assessment and Plan: Current BP is 140/52 Continue home amiodarone, chlorthalidone, imdur, lisinopril, propanolol Trend BP Adjust therapy as indicated (6) Anemia: Code(s): D64.9 - Anemia, unspecified Status: Acute Assessment and Plan: H/H 9.8/31.3 Anemia labs iron 41, TIBC 319, % sat 13, Ferritin 35.70, B12 > 1000, Folate 9.7 Looks like she takes B12 at home will continue Suspect that there is iron component For now will say this is iron deficient anemia Supplement as indicated Trend H/H (7) Hyponatremia: Code(s): E87.1 - Hypo-osmolality and hyponatremia Status: Acute Assessment and Plan: Patient does have acute hyponatremia with a sodium of 124 urine studies show sodium of 49, urea 770, creatinine 133.4 stop her chlorthalidone and her sertraline which does cause hyponatremia Consult nephrology appreciate recommendations continue to trend sodium labs in a.m. Subjective Date/time seen: 03/05/22 08:40 Interval history: Date/Time: 03/02/22 21:12 Narrative: 71-year-old female with past medical history of prior mild dementia, brain tumor resection, Parkinson's disease, coronary artery disease, hypertension, and diabetes who presented to the ER with low back pain. The patient reports that with her Parkinson's disease she goes through phases where she falls a lot. She has been falling more over the last couple of weeks. Two days ago the patient was walking and tripped while going over curb and fell backwards landing on her back. Since that time she has had increased pain in her low back as worse with sitting and walking. She has been taking her gabapentin and tramadol at home with little improvement in her pain. She did hit her head when she fell but denies any loss of consciousness. She denies any upper back pain or neck pain. She does have chronic urinary incontinence and states that she does not realize that she needs to urinate until she is already be wet herself at baseline. She denies any bowel incontinence. She does have fluctuating diarrhea with constipation
--- NOTE | 2022-03-05 08:40 | P.PNIM_ITS ---
Progress Note: A&P Assessment and Plan (1) Burst fracture of lumbar vertebra: Qualifiers: Encounter type: initial encounter Fracture type: closed Qualified Code(s): S32.001A - Stable burst fracture of unspecified lumbar vertebra, initial encounter for closed fracture Code(s): S32.001A - Stable burst fracture of unspecified lumbar vertebra, initial encounter for closed fracture Status: Acute Assessment and Plan: * Compression fracture of L1. * Secondary to recent fall * TLSO brace in place * place patient on tramadol 50 mg q.4 hours p.r.n. 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 HS * hypoglycemia protocol * Trend glucose * Adjust therapy as indicated (3) Afib: Code(s): I48.91 - Unspecified atrial fibrillation Status: Acute Assessment and Plan: * history of chronic AFib * Not on anticoagulation due to frequent falls * Rate seems to be controlled * Continue propranolol and amiodarone * Trend heart rate * Adjust therapy as indicated (4) Parkinson disease: Code(s): G20 - Parkinson's disease Status: Acute Assessment and Plan: * Probably causing the falls * Continue carbidopa/levodopa 25/100mg PO 2 tabs TID * PT/OT (5) Essential hypertension: Code(s): I10 - Essential (primary) hypertension Status: Acute Assessment and Plan: * Current BP is 140/52 * Continue home amiodarone, chlorthalidone, imdur, lisinopril, propanolol * Trend BP * Adjust therapy as indicated (6) Anemia: Code(s): D64.9 - Anemia, unspecified Status: Acute Assessment and Plan: * H/H 9.8/31.3 * Anemia labs iron 41, TIBC 319, % sat 13, Ferritin 35.70, B12 > 1000, Folate 9.7 * Looks like she takes B12 at home will continue * Suspect that there is iron component * For now will say this is iron deficient anemia * Supplement as indicated * Trend H/H (7) Hyponatremia: Code(s): E87.1 - Hypo-osmolality and hyponatremia Status: Acute Assessment and Plan: * Patient does have acute hyponatremia with a sodium of 124 * urine studies show sodium of 49, urea 770, creatinine 133.4 * stop her chlorthalidone and her sertraline which does cause hyponatremia * Consult nephrology appreciate recommendations * continue to trend sodium * labs in a.m. Subjective Date/time seen: 03/05/22 08:40 Interval history: Date/Time: 03/02/22 21:12 Narrative: 71-year-old female with past medical history of prior mild dementia, brain tumor resection, Parkinson's disease, coronary artery disease, hyper tension, and diabetes who presented to the ER with low back pain. The patient reports that with her Parkinson's disease she goes through phases where she falls a lot. She has been falling more over the last couple of weeks. Two days ago the patient was walking and tripped while going over curb and fell backwards landing on her
[2022-03-05] MEDS: OMEGA 3 POLYUNSAT FATTY ACIDS 1 GM CAP PO ×2 (08:43→17:29)
[2022-03-05] MEDS: SERTRALINE HCL 50 MG TABLET 100 MG PO (08:43)
[2022-03-05] MEDS: CHOLECALCIFEROL 1,000 UNITS TABLET 1000 UNITS PO (08:44)
[2022-03-05] MEDS: CYANOCOBALAMIN 1,000 MCG TABLET 1000 MCG PO (08:44)
[2022-03-05] MEDS: POTASSIUM CHLORIDE 20 MEQ TABLET.ER PO ×2 (08:45→17:29)
[2022-03-05] MEDS: ROSUVASTATIN 10 MG TABLET 20 MG PO (08:45)
[2022-03-05] MEDS: GABAPENTIN 300 MG CAPSULE PO ×3 (08:45→17:29)
[2022-03-05] MEDS: ISOSORBIDE MONONITRATE 60 MG TAB.ER.24H PO (08:46)
[2022-03-05] MEDS: lisinopriL 20 MG TABLET PO (08:46)
[2022-03-05 08:47] VITALS: PULSE 61
[2022-03-05] MEDS: AMIODARONE HCL 200 MG TABLET PO (08:47)
[2022-03-05] MEDS: CLOPIDOGREL BISULFATE 75 MG TABLET PO (08:48)
[2022-03-05] MEDS: DESMOPRESSIN ACETATE 0.1 MG TABLET 0.05 MG PO (08:49)
[2022-03-05] MEDS: QUEtiapine FUMARATE 25 MG TABLET 50 MG PO ×3 (08:49→17:30)
[2022-03-05] MEDS: CARBIDOPA/LEVODOPA 25/100 MG TABLET 2 TABLET PO ×3 (08:51→17:29)
[2022-03-05 11:13] LABS: NT Pro B Type Natriuretic Pept 249 pg/mL (5-100)
[2022-03-05 11:33] LABS: Cortisol Random 6.76 ug/dL
[2022-03-05] MEDS: SODIUM CHLORIDE 0.9% IV 1,000 ML 75 ML IV CONT (11:49)
[2022-03-05 12:01] LABS: Glucose Point of Care 176 mg/dl (65-105)
--- NOTE | 2022-03-05 12:06 | PM.PNNEP ---
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 she also has dementia, atrial fibrillation, B12 deficiency, diastolic dysfunction, hypertension, hyperlipidemia, history of TIA, Parkinson's disease, osteopenia, occult GI bleeding, and blindness of the left eye. The patient was admitted to the hospital because of low back pain she fell. She has been getting supportive care. Over the last couple days her sodium level has been dropping. She says she has been drinking 2 or 3 L of fluid per day. Her bedside jugs of water are 1L each. She is on Desmopressin because of her diabetes insipidus. She does not know much about her serum sodium. She has been on the same dose of desmopressin for a long time. She denies diarrhea nausea or vomiting. She is eating well. She has been on sertraline and also chlorthalidone at home. These medicines had not changed. Review of Systems Cardiovascular: Cardiovascular: Reports no additional cardiovascular complaints Respiratory: Respiratory: Reports no additional respiratory complaints Gastrointestinal: Gastrointestinal: Reports no additional gastrointestinal complaints Genitourinary: Genitourinary: Reports no additional female genitourinary complaints Exam Narrative: WDWN in NAD skin no rash head ncat lungs clear cor reg no rub abd BS+ nontender and soft ext no edema. Objective Data Vital Signs Vital Signs: Vital Signs - 24 hr 03/04/22 14:00 03/04/22 20:53 03/04/22 20:58 Temperature 36.5 C Pulse Rate 58 L 60 Respiratory Rate 16 Blood Pressure 113/57 L Pulse Oximetry 94 94 03/04/22 21:28 03/05/22 06:00 03/05/22 08:47 Temperature 36.7 C 37.2 C Pulse Rate 60 52 L 61 Respiratory Rate 18 18 Blood Pressure 147/60 H 140/52 L Pulse Oximetry 95 90 Intake/Output Intake/Output: Intake & Output 03/02/22 03/03/22 03/04/22 03/05/22 23:59 23:59 23:59 23:59 Intake Total 1190 1020 240 Output Total 0 Balance 1190 1020 240 Meds/Results Medications: Active Medications Generic Name Dose Route Start Last Admin Trade Name Freq PRN Reason Stop Dose Admin Hydrocodone Bitart/Acetaminophen 1 tab 03/04/22 10:49 03/04/22 20:54 Hydrocodone/Acetaminophen (*Crx) 5-325 Mg Tablet PO 1 tab Q4H PRN Administration Pain Rated 4-6 Amiodarone HCl 200 mg 03/03/22 08:00 03/05/22 08:47 Amiodarone Hcl 200 Mg Tablet PO 200 mg DAILY@0800 CARROLL Administration Carbidopa/Levodopa 2 tablet 03/02/22 22:50 03/05/22 11:48 Carbidopa/Levodopa 25/100 Mg Tablet PO 2 tablet TIDWM CARROLL Administration Clopidogrel Bisulfate 75 mg 03/03/22 09:00 03/05/22 08:48 Clopidogrel Bisulfate 75 Mg Tablet PO 75 mg DAILY CARROLL Administration Cyanocobalamin 1,000 mcg 03/03/22 09:00 03/05/22 08:44 Cyanocobalamin 1,000 Mcg Tablet PO 1,000 mcg DAILY CARROLL Administration Desmopressin Acetate 0.05 mg 03/02/22 22:40 03/05/22 08:49 Desmopressin Acetate 0.1 Mg Tablet PO 0.05 mg TID CARROLL Administration Dextrose 12.5 gm 03/02/22 22:38 Dextrose 50% 25 Gm/50 Ml Syringe IV PUSH PRN PRN Hypoglycemia Protocol Fish Oil 1 gm 03/03/22 09:00 03/05/22 08:43 [place] 3 Polyunsat Fatty Acids 1 Gm Cap PO 1 gm BID CARROLL Administration Gabapentin 300 mg 03/03/22 09:00 03/05/22 08:45 Gabapentin 300 Mg Capsule PO 300 mg TID CARROLL Administration Glucagon 1 mg 03/02/22 22:38 Glucagon For Inj 1 Mg Vial IM PRN PRN Hypoglycemia Protocol Glucose 15 gm 03/02/22 22:38 Glucose Oral Gel 15 Gm Of Glucse In 37.5 Gm Tube PO PRN PRN Hypoglycemia Protocol Hydrocortisone 5 mg 03/02/22 23:30 03/04/22 20:53 Hydrocortisone 10 Mg Tablet PO 5 mg HS CARROLL Administration Dextrose 1,000 mls @ 100 mls
--- NOTE | 2022-03-05 12:11 | PM.CNNEP ---
Assessment and Plan Additional Plan 1. The patient has hyponatremia. She does not make her own ADH so it is unlikely the sertraline is causing her hyponatremia. She is on chlorthalidone which does reduce the capability for the kidneys to get rid of free water so I think it is a good idea to stop this if she does not needed otherwise. The patient is drinking a lot of fluid. Perhaps she is bored in the hospital and just drinks more fluid. She is also getting pain meds which also decreases the ability for of the kidneys to get rid of free water so that could also make her sodium level lower. She is on desmopressin 3 times a day. I would like to decrease the does more pressing to twice a day and I asked the patient not to drink as much fluid although I will not apply an official fluid restriction. If these things do not work then we can become more aggressive but hopefully just adjusting medications might be enough. 2. The patient has a burst fracture of her lumbar vertebra. She has a brace and is on pain meds. She is getting physical therapy. 3. She has diabetes and is on Accu-Cheks plus sliding scale insulin. 4. She has atrial fibrillation and heart rate is under control. 5. The patient has hypertension. Her blood pressure is under good control. 6. The patient has anemia. Hemoglobin is relatively stable around 10. Iron saturation was a little bit on the low side. She is getting supplements. 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 she also has dementia, atrial fibrillation, B12 deficiency, diastolic dysfunction, hypertension, hyperlipidemia, history of TIA, Parkinson's disease, osteopenia, occult GI bleeding, and blindness of the left eye. The patient was admitted to the hospital because of low back pain she fell. She has been getting supportive care. Over the last couple days her sodium level has been dropping. She says she has been drinking 2 or 3 L of fluid per day. Her bedside jugs of water are 1L each. She is on Desmopressin because of her diabetes insipidus. She does not know much about her serum sodium. She has been on the same dose of desmopressin for a long time. She denies diarrhea nausea or vomiting. She is eating well. She has been on sertraline and also chlorthalidone at home. These medicines had not changed. Review of Systems Constitutional: Constitutional: Reports no additional constitutional complaints Eyes: Eyes: Reports no additional eye complaints ENT: Reports system reviewed and no additional complaints, except as documented Cardiovascular: Cardiovascular: Reports no additional cardiovascular complaints Respiratory: Respiratory: Reports no additional respiratory complaints Gastrointestinal: Gastrointestinal: Reports no additional gastrointestinal complaints Genitourinary: Genitourinary: Reports no additional female genitourinary complaints Musculoskeletal: Musculoskeletal: Reports no additional musculoskeletal complaints Integumentary/Breasts: Skin/Breast: Reports system reviewed and no additional complaints, except as docu Neurologic: Reports system reviewed and no additional complaints, except as documented Psychiatric: Psychiatric: Reports no additional psychiatric complaints Endocrine: Endocrine: Reports no additional endocrine complaints [facility] Past Medical History Medical History Atrial fibrillation B12 deficiency Blindness of left eye Central hypothyroidism Central hypothyroidism CHF (congestive heart failure) Echo 2018: Pseudonormal diastolic dysfunction grade 2 Chronic kidney disease, stage 3 (moderate) Coronary
[2022-03-05] MEDS: HYDROcodone/acetaminophen (*CRX) 5-325 MG TABLET 1 TAB PO (12:30)
[2022-03-05 14:00] VITALS: BP 162/67; PULSE 58; RESP 18; TEMP 36.6; O2SAT 96
[2022-03-05 16:31] LABS: Sodium 123 mmol/L (137-145)
[2022-03-05 16:51] LABS: Glucose Point of Care 179 mg/dl (65-105)
[2022-03-05] MEDS: HYDROCORTISONE 10 MG TABLET 5 MG PO (20:50)
[2022-03-05 20:52] VITALS: PULSE 55
[2022-03-05 20:56] LABS: Glucose Point of Care 162 mg/dl (65-105)
[2022-03-05 22:00] VITALS: BP 171/68; PULSE 60; RESP 16; TEMP 36.6; O2SAT 94
[2022-03-05 22:31] VITALS: O2SAT 94
[2022-03-05] MEDS: MORPHINE SULFATE (*CRX) 2 MG/ML INJ 1 MG IV PUSH (23:18)
[2022-03-06] MEDS: LEVOTHYROXINE SODIUM 88 MCG TABLET PO (05:46)
[2022-03-06 06:00] VITALS: BP 160/59; PULSE 65; RESP 18; TEMP 36.4; O2SAT 95
[2022-03-06 06:03] LABS: Basophils Percent Auto 0.5 % (0.2-1.2); Eosinophils Absolute Auto 0.3 K/mm3 (0-0.3); Eosinophils Percent Auto 3.4 % (0-4.4); Hematocrit 31.8 % (37.0-47.0); Hemoglobin 10.3 g/dL (12.0-15.0); Immature Granulocyte Absolute 0.12 K/mm3 (0.00-0.031); Immature Granulocyte Percent A 1.4 % (0-0.5); Lymphocytes Absolute Auto 1.79 K/mm3 (0.9-3.2); Lymphocytes Percent Auto 20.4 % (18.3-44.2); Mean Corpuscular HGB Conc 32.4 g/dl (32-36); Mean Corpuscular Hemoglobin 25.4 pg (26-34); Mean Corpuscular Volume 78.3 fl (80-100); Mean Platelet Volume 9.6 fl (7.4-10.4); Monocytes Absolute Auto 0.8 K/mm3 (0.1-0.6); Monocytes Percent Auto 8.7 % (2.6-8.5); Neutrophils Absolute Auto 5.8 K/mm3 (1.3-6.7); Neutrophils Percent Auto 65.6 % (45.5-73.1); Platelet Count Result 218 k/mm3 (150-375); Red Blood Count 4.06 M/mm3 (4.2-5.4); Red Cell Distribution Width 15.6 % (11.5-14.5); White Blood Count 8.8 K/mm3 (4.5-10.0)
[2022-03-06 06:23] LABS: Alanine Aminotransferase 11 U/L (4-35); Albumin Level 3.8 g/dL (3.5-5.1); Alkaline Phosphatase 129 U/L (38-126); Anion Gap 10 mmol/L (8-16); Aspartate Amino Transferase 79 U/L (14-36); Bilirubin,Total 0.9 mg/dL (0.2-1.3); Blood Urea Nitrogen 11 mg/dL (7-17); Calcium 8.1 mg/dL (8.4-10.2); Carbon Dioxide 21 mmol/L (22-30); Chloride 88 mmol/L (98-107); Estimated CRCL calculation 66 ml/min; Estimated Glomerular Filt Rate > 60; Glucose 173 mg/dL (65-110); Magnesium 1.6 mg/dL (1.6-2.3); Phosphorus 2.7 mg/dL (2.5-4.5); Potassium 3.9 mmol/L (3.4-5.0); Sodium 119 mmol/L (137-145)
[2022-03-06 07:25] LABS: Glucose Point of Care 165 mg/dl (65-105)
[2022-03-06 08:00] VITALS: PULSE 64; RESP 18; O2SAT 95
--- NOTE | 2022-03-06 08:15 | PM.IMPN ---
Progress Note: A&P Assessment and Plan (1) Burst fracture of lumbar vertebra: Qualifiers: Encounter type: initial encounter Fracture type: closed Qualified Code(s): S32.001A - Stable burst fracture of unspecified lumbar vertebra, initial encounter for closed fracture Code(s): S32.001A - Stable burst fracture of unspecified lumbar vertebra, initial encounter for closed fracture Status: Acute Assessment and Plan: Compression fracture of L1. Secondary to recent fall TLSO brace in place place patient on tramadol 50 mg q.4 hours p.r.n. pain, added morphine as well, decrease morphine to Q6hr to see if this helps with the sodium Do not want to take pain medications away as she is still experiencing a lot of pain PT and OT evaluate patient Consider rehab placement given her recent multiple falls (2) Type 2 diabetes mellitus with hyperglycemia, with long-term current use of insulin: Code(s): E11.65 - Type 2 diabetes mellitus with hyperglycemia; Z79.4 - skilled nursing (current) use of insulin Status: Acute Assessment and Plan: Glucose 173 Diabetes mellitus with hyperglycemia Continue home Lantus Placed on moderate sliding scale insulin Accu-Cheks a.c. HS hypoglycemia protocol Trend glucose Adjust therapy as indicated (3) Afib: Code(s): I48.91 - Unspecified atrial fibrillation Status: Acute Assessment and Plan: history of chronic AFib Not on anticoagulation due to frequent falls Rate seems to be controlled Continue propranolol and amiodarone Trend heart rate Adjust therapy as indicated (4) Parkinson disease: Code(s): G20 - Parkinson's disease Status: Acute Assessment and Plan: Probably causing the falls Continue carbidopa/levodopa 25/100mg PO 2 tabs TID PT/OT (5) Essential hypertension: Code(s): I10 - Essential (primary) hypertension Status: Acute Assessment and Plan: Current BP is 160/59 Continue home amiodarone, chlorthalidone, imdur, lisinopril, propanolol Trend BP Adjust therapy as indicated (6) Anemia: Code(s): D64.9 - Anemia, unspecified Status: Acute Assessment and Plan: H/H 10.3/31.8 Anemia labs iron 41, TIBC 319, % sat 13, Ferritin 35.70, B12 > 1000, Folate 9.7 Looks like she takes B12 at home will continue Anemia of chronic disease Supplement as indicated Trend H/H (7) Hyponatremia: Code(s): E87.1 - Hypo-osmolality and hyponatremia Status: Acute Assessment and Plan: Patient does have acute hyponatremia with a sodium of 119 urine studies show sodium of 77, urea 770, creatinine 133.4 stop her chlorthalidone and her sertraline which does cause hyponatremia Consult nephrology appreciate recommendations Desmopressin has been changed Could be related to the surgery of the craniopharyngioma, as she does not make ADH continue to trend sodium labs in a.m. Subjective Date/time seen: 03/06/22 08:15 Interval history: Interval history: Date/Time: 03/02/22 21:12 Narrative: 71-year-old female with past medical history of prior mild dementia, brain tumor resection, Parkinson's disease, coronary artery disease, hypertension, and diabetes who presented to the ER with low back pain. The patient reports that with her Parkinson's disease she goes through phases where she falls a lot. She has been falling more over the last couple of weeks. Two days ago the patient was walking and tripped while going over curb and fell backwards landing on her back. Since that time she has had increased pain in her low back as worse with sitting and walking. She has been taking her gabapentin and tramadol at home with little improvement in her pain. She did hit her head when she fell but denies any loss of consciousness. She denies any upper back pain or neck pain. She does have chronic
--- NOTE | 2022-03-06 08:15 | P.PNIM_ITS ---
Progress Note: A&P Assessment and Plan (1) Burst fracture of lumbar vertebra: Qualifiers: Encounter type: initial encounter Fracture type: closed Qualified Code(s): S32.001A - Stable burst fracture of unspecified lumbar vertebra, initial encounter for closed fracture Code(s): S32.001A - Stable burst fracture of unspecified lumbar vertebra, initial encounter for closed fracture Status: Acute Assessment and Plan: * Compression fracture of L1. * Secondary to recent fall * TLSO brace in place * place patient on tramadol 50 mg q.4 hours p.r.n. 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 HS * hypoglycemia protocol * Trend glucose * Adjust therapy as indicated (3) Afib: Code(s): I48.91 - Unspecified atrial fibrillation Status: Acute Assessment and Plan: * history of chronic AFib * Not on anticoagulation due to frequent falls * Rate seems to be controlled * Continue propranolol and amiodarone * Trend heart rate * Adjust therapy as indicated (4) Parkinson disease: Code(s): G20 - Parkinson's disease Status: Acute Assessment and Plan: * Probably causing the falls * Continue carbidopa/levodopa 25/100mg PO 2 tabs TID * PT/OT (5) Essential hypertension: Code(s): I10 - Essential (primary) hypertension Status: Acute Assessment and Plan: * Current BP is 160/59 * Continue home amiodarone, chlorthalidone, imdur, lisinopril, propanolol * Trend BP * Adjust therapy as indicated (6) Anemia: Code(s): D64.9 - Anemia, unspecified Status: Acute Assessment and Plan: * H/H 10.3/31.8 * Anemia labs iron 41, TIBC 319, % sat 13, Ferritin 35.70, B12 > 1000, Folate 9.7 * Looks like she takes B12 at home will continue * Anemia of chronic disease * Supplement as indicated * Trend H/H (7) Hyponatremia: Code(s): E87.1 - Hypo-osmolality and hyponatremia Status: Acute Assessment and Plan: * Patient does have acute hyponatremia with a sodium of 119 * urine studies show sodium of 77, urea 770, creatinine 133.4 * stop her chlorthalidone and her sertraline which does cause hyponatremia * Consult nephrology appreciate recommendations * Desmopressin has been changed * Could be related to the surgery of the craniopharyngioma, as she does not make ADH * continue to trend sodium * labs in a.m. Subjective Date/time seen: 03/06/22 08:15 Interval history: Interval history: Date/Time: 03/02/22 21:12 Narrative: 71-year-old female with past medical history of prior mild dementia, brain tumor resection, Parkinson's disease, coronary artery disease, hypertension, and diabetes who presented to the ER with low back pain. The patient reports that
[2022-03-06] MEDS: QUEtiapine FUMARATE 25 MG TABLET 50 MG PO ×2 (08:57→17:57)
[2022-03-06] MEDS: GABAPENTIN 300 MG CAPSULE PO ×2 (08:57→17:57)
[2022-03-06 08:58] VITALS: PULSE 64
[2022-03-06] MEDS: POTASSIUM CHLORIDE 20 MEQ TABLET.ER PO ×2 (08:58→17:58)
[2022-03-06] MEDS: AMIODARONE HCL 200 MG TABLET PO (08:58)
[2022-03-06] MEDS: CARBIDOPA/LEVODOPA 25/100 MG TABLET 2 TABLET PO ×3 (08:58→17:57)
[2022-03-06] MEDS: ISOSORBIDE MONONITRATE 60 MG TAB.ER.24H PO (09:00)
[2022-03-06] MEDS: lisinopriL 20 MG TABLET PO ×2 (09:00→12:32)
[2022-03-06] MEDS: CYANOCOBALAMIN 1,000 MCG TABLET 1000 MCG PO (09:00)
[2022-03-06] MEDS: CLOPIDOGREL BISULFATE 75 MG TABLET PO (09:01)
[2022-03-06] MEDS: CHOLECALCIFEROL 1,000 UNITS TABLET 1000 UNITS PO (09:01)
[2022-03-06] MEDS: OMEGA 3 POLYUNSAT FATTY ACIDS 1 GM CAP PO ×2 (09:01→17:57)
[2022-03-06] MEDS: ROSUVASTATIN 10 MG TABLET 20 MG PO (09:02)
[2022-03-06] MEDS: HYDROcodone/acetaminophen (*CRX) 5-325 MG TABLET 1 TAB PO ×2 (09:09→17:59)
--- NOTE | 2022-03-06 09:29 | PM.PNNEP ---
Progress Note: A&P Additional Plan 1. The patient has hyponatremia. 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 She does not remember much about what happened to require her to start does mow press in. She says that she just had an active bladder which has not been is much of a problem since on this medication. Right now the patient is hyponatremic. Even though I cut back on her Desmopressin her sodium level dropped even more. Assuming this is all just an imbalance of desmopressin and fluid intake I am going to hold the Desmopressin and follow urine output closely. I talked with nursing for her to alert me as soon is urine output picks up substantially. The patient is going to get a Escalante catheter so we can watch the urine output more closely. I will also check a sodium level 4 hours after the last 1 was done. 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 other issues that can make the sodium low include her narcotics. I talked with MARKOS Olivares going to try to cut back on the narcotics if the patient is not too uncomfortable doing this. I am okay working around the narcotics however if she continues to be uncomfortable. The patient is on chlorthalidone chronically but this has been held. She was also on sertraline. This has been held. So the plan is to hold desmopressin. The last dose given was last evening. Will check another sodium level later this morning. If the sodium level is not improving the urine output is not off then I will fluid restrict her even more. 2. The patient has a burst fracture of her lumbar vertebra. She has a brace and is on pain meds. She is getting physical therapy. 3. She has diabetes and is on Accu-Cheks plus sliding scale insulin. 4. She has atrial fibrillation and heart rate is under control. 5. The patient has hypertension. Her blood pressure is a bit high. She is on lisinopril and propranolol. Will increase the former. 6. The patient has anemia. Hemoglobin is relatively stable around 10. Iron saturation was a little bit on the low side. She is getting supplements. Subjective Date/time seen: 03/06/22 09:29 Interval history: Darlyn is feeling blah today. She has pain in the back. She is getting narcotics. I talked with nursing and her mental status is stable. Review of Systems Cardiovascular: Cardiovascular: Reports no additional cardiovascular complaints Respiratory: Respiratory: Reports no additional respiratory complaints Gastrointestinal: Gastrointestinal: Reports no additional gastrointestinal complaints Genitourinary: Genitourinary: Reports no additional female genitourinary complaints Exam Narrative: WDWN in NAD skin no rash head ncat lungs clear cor reg no rub abd BS+ nontender and soft ext no edema. Back brace is on. Objective Data Vital Signs Vital Signs: Vital Signs - 24 hr 03/05/22 14:00 03/05/22 20:52 03/05/22 22:00 Temperature 36.6 C 36.6 C Pulse Rate 58 L 55 L 60 Respiratory Rate 18 16 Blood Pressure 162/67 H 171/68 H Pulse Oximetry 96 94 03/05/22 22:31 03/06/22 06:00 03/06/22 08:58 Temperature 36.4 C Pulse Rate 65 64 Respiratory Rate 18 Blood Pressure 160/59 H Pulse Oximetry 94 95 Intake/Output Intake/Output: Intake & Output 03/03/22 03/04/22 03/05/22 03/06/22 23:59 23:59 23:59 23:59 Intake Total 1190 1020 680 Output Total 0 Balance 1190 1020 680 Meds/Results Medications: Active Medications Generic Name Dose Route Start Last Admin Trade Name Freq PRN Reason Stop Dose Admin Hydrocodone Bitart/Acetaminophen 1 tab 03/04/22 10:49 03/06/22 09:09 Hydrocodone/Acetaminophen (*Crx) 5-325 Mg Tablet PO 1 tab Q4H PRN Administration Pain Rated 4-6 Amiodarone HCl 200 mg 03/03/22 08:00 03/06/22 08:58 Amiodarone Hcl
[2022-03-06] MEDS: MAGNESIUM SULF 4 GM/WATER100ML 4 GM/100 ML BAG IVPB (10:11)
[2022-03-06 10:52] LABS: Sodium 118 mmol/L (137-145)
[2022-03-06 11:11] LABS: Cortisol Random 2.91 ug/dL
[2022-03-06 11:34] LABS: Thyroid Stimulating Hormone Reflex < 0.015 uIU/mL (0.465-4.68)
[2022-03-06 11:59] LABS: Glucose Point of Care 186 mg/dl (65-105)
[2022-03-06 12:01] LABS: Free T4 Free Thyroxine Reflex 2.35 ng/dL (0.78-2.19)
[2022-03-06 14:00] VITALS: BP 165/55; PULSE 62; RESP 18; TEMP 36.4; O2SAT 95
--- NOTE | 2022-03-06 14:26 | PCPTNOTE ---
PT attempted to see patient 3 x today. Patient refused each time stating not today! PT will continue to follow per plan of care.
[2022-03-06 15:48] LABS: Sodium 118 mmol/L (137-145)
[2022-03-06 16:40] LABS: Glucose Point of Care 166 mg/dl (65-105)
[2022-03-06] MEDS: SODIUM CHLORIDE 3% 400 ML 200 ML IV CONT (16:41)
[2022-03-06 20:13] LABS: Sodium 123 mmol/L (137-145)
[2022-03-06 20:21] VITALS: BP 142/53; PULSE 64; RESP 18; TEMP 36.7; O2SAT 93
[2022-03-06] MEDS: HYDROCORTISONE 10 MG TABLET 5 MG PO (20:35)
[2022-03-06] MEDS: PROPRANOLOL HCL 20 MG TABLET PO (20:35)
--- NOTE | 2022-03-06 20:39 | PC.NURSE ---
Called Dr. Marie and reported patient sodium level of 123. Dr. Marie gave verbal order to recheck patient sodium level at midnight and patient can be on 1500 fluid restriction.
[2022-03-06 21:32] LABS: Glucose Point of Care 165 mg/dl (65-105)
[2022-03-07 00:38] LABS: Sodium 124 mmol/L (137-145)
[2022-03-07] MEDS: HYDROcodone/acetaminophen (*CRX) 5-325 MG TABLET 1 TAB PO ×4 (02:19→16:09)
[2022-03-07 05:40] LABS: Basophils Percent Auto 0.3 % (0.2-1.2); Eosinophils Absolute Auto 0.3 K/mm3 (0-0.3); Eosinophils Percent Auto 2.6 % (0-4.4); Hematocrit 29.8 % (37.0-47.0); Hemoglobin 9.9 g/dL (12.0-15.0); Immature Granulocyte Absolute 0.08 K/mm3 (0.00-0.031); Immature Granulocyte Percent A 0.8 % (0-0.5); Lymphocytes Absolute Auto 1.34 K/mm3 (0.9-3.2); Lymphocytes Percent Auto 14.2 % (18.3-44.2); Mean Corpuscular HGB Conc 33.2 g/dl (32-36); Mean Corpuscular Hemoglobin 25.6 pg (26-34); Mean Corpuscular Volume 77.2 fl (80-100); Mean Platelet Volume 9.8 fl (7.4-10.4); Monocytes Absolute Auto 0.7 K/mm3 (0.1-0.6); Monocytes Percent Auto 7.6 % (2.6-8.5); Neutrophils Percent Auto 74.5 % (45.5-73.1); Platelet Count Result 244 k/mm3 (150-375); Red Blood Count 3.86 M/mm3 (4.2-5.4); Red Cell Distribution Width 15.8 % (11.5-14.5); White Blood Count 9.5 K/mm3 (4.5-10.0)
[2022-03-07 05:53] LABS: Alanine Aminotransferase 11 U/L (4-35); Albumin Level 3.4 g/dL (3.5-5.1); Alkaline Phosphatase 125 U/L (38-126); Anion Gap 11 mmol/L (8-16); Aspartate Amino Transferase 88 U/L (14-36); Bilirubin,Total 0.6 mg/dL (0.2-1.3); Blood Urea Nitrogen 10 mg/dL (7-17); Calcium 7.7 mg/dL (8.4-10.2); Carbon Dioxide 19 mmol/L (22-30); Chloride 94 mmol/L (98-107); Estimated CRCL calculation 51 ml/min; Estimated Glomerular Filt Rate > 60; Glucose 172 mg/dL (65-110); Magnesium 2.2 mg/dL (1.6-2.3); Phosphorus 3.9 mg/dL (2.5-4.5); Potassium 3.8 mmol/L (3.4-5.0); Sodium 124 mmol/L (137-145)
[2022-03-07 05:56] VITALS: BP 137/56; PULSE 56; RESP 18; TEMP 36.7; O2SAT 95
[2022-03-07] MEDS: LEVOTHYROXINE SODIUM 88 MCG TABLET PO (06:09)
[2022-03-07 08:00] VITALS: PULSE 55; RESP 18; O2SAT 95
[2022-03-07] MEDS: CARBIDOPA/LEVODOPA 25/100 MG TABLET 2 TABLET PO ×3 (08:45→16:24)
[2022-03-07] MEDS: lisinopriL 20 MG TABLET 40 MG PO (08:46)
[2022-03-07] MEDS: QUEtiapine FUMARATE 25 MG TABLET 50 MG PO ×3 (08:46→17:46)
[2022-03-07] MEDS: CHOLECALCIFEROL 1,000 UNITS TABLET 1000 UNITS PO (08:46)
[2022-03-07] MEDS: OMEGA 3 POLYUNSAT FATTY ACIDS 1 GM CAP PO ×2 (08:46→16:25)
[2022-03-07 08:47] VITALS: PULSE 55
[2022-03-07] MEDS: ROSUVASTATIN 10 MG TABLET 20 MG PO (08:47)
[2022-03-07] MEDS: ISOSORBIDE MONONITRATE 60 MG TAB.ER.24H PO (08:47)
[2022-03-07] MEDS: CYANOCOBALAMIN 1,000 MCG TABLET 1000 MCG PO (08:47)
[2022-03-07] MEDS: CLOPIDOGREL BISULFATE 75 MG TABLET PO (08:47)
[2022-03-07] MEDS: AMIODARONE HCL 200 MG TABLET PO (08:47)
[2022-03-07] MEDS: GABAPENTIN 300 MG CAPSULE PO ×3 (08:47→16:24)
[2022-03-07] MEDS: POTASSIUM CHLORIDE 20 MEQ TABLET.ER PO ×2 (08:50→16:25)
[2022-03-07] MEDS: SALINE 0.65% NAS SOLN 44 ML BTL 1 SPRAY NASAL (08:50)
--- NOTE | 2022-03-07 10:30 | PM.IMPN ---
Progress Note: A&P Assessment and Plan (1) Burst fracture of lumbar vertebra: Qualifiers: Encounter type: initial encounter Fracture type: closed Qualified Code(s): S32.001A - Stable burst fracture of unspecified lumbar vertebra, initial encounter for closed fracture Code(s): S32.001A - Stable burst fracture of unspecified lumbar vertebra, initial encounter for closed fracture Status: Acute Assessment and Plan: Compression fracture of L1. Secondary to recent fall TLSO brace in place place patient on tramadol 50 mg q.4 hours p.r.n. 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 HS hypoglycemia protocol Trend glucose Adjust therapy as indicated (3) Afib: Code(s): I48.91 - Unspecified atrial fibrillation Status: Acute Assessment and Plan: history of chronic AFib Not on anticoagulation due to frequent falls Rate seems to be controlled Continue propranolol and amiodarone Trend heart rate Adjust therapy as indicated (4) Parkinson disease: Code(s): G20 - Parkinson's disease Status: Acute Assessment and Plan: Probably causing the falls Continue carbidopa/levodopa 25/100mg PO 2 tabs TID PT/OT (5) Essential hypertension: Code(s): I10 - Essential (primary) hypertension Status: Acute Assessment and Plan: Current BP is 137/56 Continue home amiodarone, chlorthalidone, imdur, lisinopril, propanolol Trend BP Adjust therapy as indicated (6) Anemia: Code(s): D64.9 - Anemia, unspecified Status: Acute Assessment and Plan: H/H 9.9/29.8 Anemia labs iron 41, TIBC 319, % sat 13, Ferritin 35.70, B12 > 1000, Folate 9.7 Looks like she takes B12 at home will continue Anemia of chronic disease Supplement as indicated Trend H/H (7) Hyponatremia: Code(s): E87.1 - Hypo-osmolality and hyponatremia Status: Acute Assessment and Plan: Sodium getting better at 124 today urine studies show sodium of 77, urea 770, creatinine 133.4 stop her chlorthalidone and her sertraline which does cause hyponatremia Consult nephrology appreciate recommendations Desmopressin has been changed Could be related to the surgery of the craniopharyngioma, as she does not make ADH continue to trend sodium 3% saline given labs in a.m. Subjective Date/time seen: 03/07/22 10:30 Interval history: Interval history: Date/Time: 03/02/22 21:12 Narrative: 71-year-old female with past medical history of prior mild dementia, brain tumor resection, Parkinson's disease, coronary artery disease, hypertension, and diabetes who presented to the ER with low back pain. The patient reports that with her Parkinson's disease she goes through phases where she falls a lot. She has been falling more over the last couple of weeks. Two days ago the patient was walking and tripped while going over curb and fell backwards landing on her back. Since that time she has had increased pain in her low back as worse with sitting and walking. She has been taking her gabapentin and tramadol at home with little improvement in her pain. She did hit her head when she fell but denies any loss of consciousness. She denies any upper back pain or neck pain. She does have chronic urin
--- NOTE | 2022-03-07 10:30 | P.PNIM_ITS ---
Progress Note: A&P Assessment and Plan (1) Burst fracture of lumbar vertebra: Qualifiers: Encounter type: initial encounter Fracture type: closed Qualified Code(s): S32.001A - Stable burst fracture of unspecified lumbar vertebra, initial encounter for closed fracture Code(s): S32.001A - Stable burst fracture of unspecified lumbar vertebra, initial encounter for closed fracture Status: Acute Assessment and Plan: * Compression fracture of L1. * Secondary to recent fall * TLSO brace in place * place patient on tramadol 50 mg q.4 hours p.r.n. pain, added morphine as well, decrease morphine to Q6hr to see if this helps with the sodium * Do not want to take pain medications away as she is still experiencing a lot of pain * PT and OT evaluate patient * Consider rehab placement given her recent multiple falls (2) Type 2 diabetes mellitus with hyperglycemia, with long-term current use of insulin: Code(s): E11.65 - Type 2 diabetes mellitus with hyperglycemia; Z79.4 - [facility]P (current) use of insulin Status: Acute Assessment and Plan: * Glucose 172 * Diabetes mellitus with hyperglycemia * Continue home Lantus * Placed on moderate sliding scale insulin * Accu-Cheks a.c. HS * hypoglycemia protocol * Trend glucose * Adjust therapy as indicated (3) Afib: Code(s): I48.91 - Unspecified atrial fibrillation Status: Acute Assessment and Plan: * history of chronic AFib * Not on anticoagulation due to frequent falls * Rate seems to be controlled * Continue propranolol and amiodarone * Trend heart rate * Adjust therapy as indicated (4) Parkinson disease: Code(s): G20 - Parkinson's disease Status: Acute Assessment and Plan: * Probably causing the falls * Continue carbidopa/levodopa 25/100mg PO 2 tabs TID * PT/OT (5) Essential hypertension: Code(s): I10 - Essential (primary) hypertension Status: Acute Assessment and Plan: * Current BP is 137/56 * Continue home amiodarone, chlorthalidone, imdur, lisinopril, propanolol * Trend BP * Adjust therapy as indicated (6) Anemia: Code(s): D64.9 - Anemia, unspecified Status: Acute Assessment and Plan: * H/H 9.9/29.8 * Anemia labs iron 41, TIBC 319, % sat 13, Ferritin 35.70, B12 > 1000, Folate 9.7 * Looks like she takes B12 at home will continue * Anemia of chronic disease * Supplement as indicated * Trend H/H (7) Hyponatremia: Code(s): E87.1 - Hypo-osmolality and hyponatremia Status: Acute Assessment and Plan: * Sodium getting better at 124 today * urine studies show sodium of 77, urea 770, creatinine 133.4 * stop her chlorthalidone and her sertraline which does cause hyponatremia * Consult nephrology appreciate recommendations * Desmopressin has been changed * Could be related to the surgery of the craniopharyngioma, as she does not make ADH * continue to trend sodium * 3% saline given * labs in a.m. Subjective Date/time seen: 03/07/22 10:30 Interval history: Interval history: Date/Time: 03/02/22 21:12 Narrative: 71-year-old female with past medical history of prior mild dementia, brain tumor resection, Parkinson's disease, coronary artery disease, hypertension, and diabetes who presented to the ER with low back pain. The patient reports that
[2022-03-07 13:09] LABS: Glucose Point of Care 149 mg/dl (65-105)
[2022-03-07 13:09] LABS: Glucose Point of Care 144 mg/dl (65-105)
[2022-03-07 14:00] VITALS: BP 100/45; PULSE 59; RESP 19; TEMP 36.2; O2SAT 92
[2022-03-07 14:09] LABS: Osmolality, Urine 672 mOsm/kg (50-1200)
--- NOTE | 2022-03-07 15:01 | PM.PNNEP ---
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); FSH pending assuming this is all just an imbalance of desmopressin and fluid intake, DDAVP was reduced and now subsequently stopped surprisingly, her urine output has not really increased much despite discontinuation of DDAVP however, sodium is improving at this time other risk factors include: chlorthalidone use - on hold sertraline use - on hold pain issues (lumbar vertebrae fracture) continue to follow trend of sodium levels (2) Burst fracture of lumbar vertebra: Qualifiers: Encounter type: initial encounter Fracture type: closed Qualified Code(s): S32.001A - Stable burst fracture of unspecified lumbar vertebra, initial encounter for closed fracture Code(s): S32.001A - Stable burst fracture of unspecified lumbar vertebra, initial encounter for closed fracture Status: Acute Assessment and Plan: brace in place pain control PT/OT as tolerated (3) Essential hypertension: Code(s): I10 - Essential (primary) hypertension Status: Chronic Assessment and Plan: reasonable control at this time follow trend of hemodynamics (4) Afib: Code(s): I48.91 - Unspecified atrial fibrillation Status: Chronic Assessment and Plan: rate control strategy not on anticoagulation due to fall risk (5) Diabetes: Code(s): E11.9 - Type 2 diabetes mellitus without complications Status: Chronic Assessment and Plan: follow accuchecks on SSI Will continue to follow. Subjective Date/time seen: 03/07/22 15:01 Chart reviewed - assuming care from Dr. Marie; major issue/complaint is that of back pain; despite this complaint, she is asking me about when she can home/be discharged; no other issues or events overnight or earlier this AM; sodium appears to be improving albeit slowly since DDAVP was discontinued. Exam Narrative: General: WD/WN female in NAD Heart: normal S1 and S2; no rub Lungs: clear to auscultation Abdomen: soft, nontender, nondistended, positive bowel sounds Extremities: no cyanosis or clubbing; no edema Skin: warm and dry Objective Data Vital Signs Vital Signs: Vital Signs Temp Pulse Resp BP Pulse Ox 03/07/22 14:00 36.2 C L 59 L 19 100/45 L 92 03/07/22 08:47 55 L 03/07/22 08:00 55 L 18 95 03/07/22 05:56 36.7 C 56 L 18 137/56 L 95 03/06/22 20:21 36.7 C 64 18 142/53 H 93 Intake/Output Intake/Output: Intake & Output 03/04/22 03/05/22 03/06/22 03/07/22 23:59 23:59 23:59 23:59 Intake Total 1020 680 240 160 Output Total 0 300 450 Balance 1020 680 -60 -290 Meds/Results Medications: Active Medications Generic Name Dose Route Start Last Admin Trade Name Freq PRN Reason Stop Dose Admin Hydrocodone Bitart/Acetaminophen 1 tab 03/04/22 10:49 03/07/22 16:09 Hydrocodone/Acetaminophen (*Crx) 5-325 Mg Tablet PO 1 tab Q4H PRN Administration Pain Rated 4-6 Amiodarone HCl 200 mg 03/03/22 08:00 03/07/22 08:47 Amiodarone Hcl 200 Mg Tablet PO 200 mg DAILY@0800 CARROLL Administration Carbidopa/Levodopa 2 tablet 03/02/22 22:50 03/07/22 16:24 Carbidopa/Levodopa 25/100 Mg Tablet PO 2 tablet TIDWM CARROLL Administration Clopidogrel Bisulfate 75 mg 03/03/22 09:00 03/07/22 08:47 Clopidogrel Bisulfate 75 Mg Tablet PO 75 mg DAILY CARROLL Administration Cyanocobalamin 1,000 mcg 03/03/22 09:00 03/07/22 08:47 Cyanocobalamin 1,000 Mcg Tablet PO
--- NOTE | 2022-03-07 15:01 | P.PNNP_ITS ---
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); FSH pending * assuming this is all just an imbalance of desmopressin and fluid intake, DDAVP was reduced and now subsequently stopped * surprisingly, her urine output has not really increased much despite discontinuation of DDAVP * however, sodium is improving at this time * other risk factors include: * chlorthalidone use - on hold * sertraline use - on hold * pain issues (lumbar vertebrae fracture) * continue to follow trend of sodium levels (2) Burst fracture of lumbar vertebra: Qualifiers: Encounter type: initial encounter Fracture type: closed Qualified Code(s): S32.001A - Stable burst fracture of unspecified lumbar vertebra, initial encounter for closed fracture Code(s): S32.001A - Stable burst fracture of unspecified lumbar vertebra, initial encounter for closed fracture Status: Acute Assessment and Plan: * brace in place * pain control * PT/OT as tolerated (3) Essential hypertension: Code(s): I10 - Essential (primary) hypertension Status: Chronic Assessment and Plan: * reasonable control at this time * follow trend of hemodynamics (4) Afib: Code(s): I48.91 - Unspecified atrial fibrillation Status: Chronic Assessment and Plan: * rate control strategy * not on anticoagulation due to fall risk (5) Diabetes: Code(s): E11.9 - Type 2 diabetes mellitus without complications Status: Chronic Assessment and Plan: * follow accuchecks * on SSI Will continue to follow. Subjective Date/time seen: 03/07/22 15:01 Chart reviewed - assuming care from Dr. Marie; major issue/complaint is that of back pain; despite this complaint, she is asking me about when she can home/be discharged; no other issues or events overnight or earlier this AM; sodium appears to be improving albeit slowly since DDAVP was discontinued. Exam Narrative: General: WD/WN female in NAD Heart: normal S1 and S2; no rub Lungs: clear to auscultation Abdomen: soft, nontender, nondistended, positive bowel sounds Extremities: no cyanosis or clubbing; no edema Skin: warm and dry Objective Data Vital Signs Vital Signs: Vital Signs Temp Pulse Resp BP Pulse Ox 03/07/22 14:00 36.2 C L 59 L 19 100/45 L 92 03/07/22 08:47 55 L 03/07/22 08:00 55 L 18 95 03/07/22 05:56 36.7 C 56 L 18 137/56 L 95 03/06/22 20:21 36.7 C 64 18 142/53 H 93 Intake/Output Intake/Output: Intake & Output 03/04/22 03/05/22 03/06/22 03/07/22 23:59 23:59 23:59 23:59 Intake Total 1020 680 240 160 Output Total 0 300 450 Balance 1020 680 -60 -290 Meds/Results Medications: Active Medications Generic Name Dose Route Start Last Admin Trade Name Freq PRN Reason Stop Dose Admi
[2022-03-07 16:25] LABS: Glucose Point of Care 159 mg/dl (65-105)
[2022-03-07 18:14] LABS: Sodium 125 mmol/L (137-145)
[2022-03-07] MEDS: HYDROCORTISONE 10 MG TABLET 5 MG PO (20:06)
[2022-03-07] MEDS: PROPRANOLOL HCL 20 MG TABLET PO (20:06)
[2022-03-07 21:06] LABS: Glucose Point of Care 156 mg/dl (65-105)
[2022-03-07 21:07] VITALS: O2SAT 93
[2022-03-07 22:00] VITALS: BP 115/46; PULSE 54; RESP 18; TEMP 36.5; O2SAT 97
[2022-03-07] MEDS: BENZOCAINE/MENTHOL (*BKC) 18 EA LOZENGE 1 LOZENGE PO (23:22)
[2022-03-08 00:31] LABS: Glucose Point of Care 174 mg/dl (65-105)
[2022-03-08] MEDS: LEVOTHYROXINE SODIUM 88 MCG TABLET PO (05:27)
[2022-03-08 06:00] VITALS: BP 122/55; PULSE 52; RESP 18; TEMP 37.2; O2SAT 94
[2022-03-08 06:06] LABS: Alanine Aminotransferase 11 U/L (4-35); Albumin Level 3.4 g/dL (3.5-5.1); Alkaline Phosphatase 130 U/L (38-126); Anion Gap 11 mmol/L (8-16); Aspartate Amino Transferase 88 U/L (14-36); Bilirubin,Total 0.6 mg/dL (0.2-1.3); Blood Urea Nitrogen 15 mg/dL (7-17); Calcium 8.3 mg/dL (8.4-10.2); Carbon Dioxide 23 mmol/L (22-30); Chloride 92 mmol/L (98-107); Estimated CRCL calculation 41 ml/min; Estimated Glomerular Filt Rate 55; Glucose 161 mg/dL (65-110); Magnesium 2.2 mg/dL (1.6-2.3); Potassium 4.3 mmol/L (3.4-5.0); Sodium 126 mmol/L (137-145)
[2022-03-08 06:09] LABS: Basophils Percent Auto 0.2 % (0.2-1.2); Eosinophils Absolute Auto 0.3 K/mm3 (0-0.3); Eosinophils Percent Auto 2.9 % (0-4.4); Hematocrit 30.9 % (37.0-47.0); Immature Granulocyte Percent A 1.1 % (0-0.5); Lymphocytes Absolute Auto 1.55 K/mm3 (0.9-3.2); Lymphocytes Percent Auto 17.7 % (18.3-44.2); Mean Corpuscular HGB Conc 32.4 g/dl (32-36); Mean Corpuscular Hemoglobin 25.6 pg (26-34); Mean Platelet Volume 10.1 fl (7.4-10.4); Monocytes Absolute Auto 0.8 K/mm3 (0.1-0.6); Monocytes Percent Auto 9.6 % (2.6-8.5); Neutrophils Percent Auto 68.5 % (45.5-73.1); Platelet Count Result 293 k/mm3 (150-375); Red Blood Count 3.91 M/mm3 (4.2-5.4); Red Cell Distribution Width 16.2 % (11.5-14.5); White Blood Count 8.7 K/mm3 (4.5-10.0)
[2022-03-08 07:56] LABS: Glucose Point of Care 142 mg/dl (65-105)
[2022-03-08] MEDS: ROSUVASTATIN 10 MG TABLET 20 MG PO (08:19)
[2022-03-08] MEDS: CLOPIDOGREL BISULFATE 75 MG TABLET PO (08:19)
[2022-03-08] MEDS: GABAPENTIN 300 MG CAPSULE PO ×3 (08:19→17:19)
[2022-03-08] MEDS: ISOSORBIDE MONONITRATE 60 MG TAB.ER.24H PO (08:19)
[2022-03-08] MEDS: CHOLECALCIFEROL 1,000 UNITS TABLET 1000 UNITS PO (08:19)
[2022-03-08] MEDS: OMEGA 3 POLYUNSAT FATTY ACIDS 1 GM CAP PO ×2 (08:19→17:20)
[2022-03-08] MEDS: CARBIDOPA/LEVODOPA 25/100 MG TABLET 2 TABLET PO ×3 (08:19→17:20)
[2022-03-08] MEDS: lisinopriL 20 MG TABLET 40 MG PO (08:19)
[2022-03-08] MEDS: CYANOCOBALAMIN 1,000 MCG TABLET 1000 MCG PO (08:19)
[2022-03-08 08:20] VITALS: PULSE 66
[2022-03-08] MEDS: AMIODARONE HCL 200 MG TABLET PO (08:20)
[2022-03-08] MEDS: POTASSIUM CHLORIDE 20 MEQ TABLET.ER PO ×2 (08:20→17:20)
[2022-03-08] MEDS: QUEtiapine FUMARATE 25 MG TABLET 50 MG PO ×3 (08:20→17:21)
[2022-03-08] MEDS: HYDROcodone/acetaminophen (*CRX) 5-325 MG TABLET 1 TAB PO ×2 (09:20→17:22)
--- NOTE | 2022-03-08 09:25 | P.PNIM_ITS ---
Progress Note: A&P Assessment and Plan (1) Burst fracture of lumbar vertebra: Qualifiers: Encounter type: initial encounter Fracture type: closed Qualified Code(s): S32.001A - Stable burst fracture of unspecified lumbar vertebra, initial encounter for closed fracture Code(s): S32.001A - Stable burst fracture of unspecified lumbar vertebra, initial encounter for closed fracture Status: Acute Assessment and Plan: * Compression fracture of L1. * Secondary to recent fall * TLSO brace * norco q4hr prn, morphine for breakthrough pain * Do not want to take pain medications away as she is still experiencing a lot of pain * PT and OT evaluate patient * Consider rehab placement given her recent multiple falls (2) Type 2 diabetes mellitus with hyperglycemia, with long-term current use of insulin: Code(s): E11.65 - Type 2 diabetes mellitus with hyperglycemia; Z79.4 - correction (current) use of insulin Status: Acute Assessment and Plan: * Glucose 161 * Diabetes mellitus with hyperglycemia * Continue home Lantus * Placed on moderate sliding scale insulin * Accu-Cheks a.c. HS * hypoglycemia protocol * Trend glucose * Adjust therapy as indicated (3) Afib: Code(s): I48.91 - Unspecified atrial fibrillation Status: Acute Assessment and Plan: * history of chronic AFib * Not on anticoagulation due to frequent falls * Rate seems to be controlled * Continue propranolol and amiodarone * Trend heart rate * Adjust therapy as indicated (4) Parkinson disease: Code(s): G20 - Parkinson's disease Status: Acute Assessment and Plan: * Probably causing the falls * Continue carbidopa/levodopa 25/100mg PO 2 tabs TID * PT/OT (5) Essential hypertension: Code(s): I10 - Essential (primary) hypertension Status: Acute Assessment and Plan: * Current BP is 122/55 * Continue home amiodarone, chlorthalidone, imdur, lisinopril, propanolol * Trend BP * Adjust therapy as indicated (6) Anemia: Code(s): D64.9 - Anemia, unspecified Status: Acute Assessment and Plan: * H/H 10.0/30.9 * Anemia labs iron 41, TIBC 319, % sat 13, Ferritin 35.70, B12 > 1000, Folate 9.7 * Looks like she takes B12 at home will continue * Anemia of chronic disease * Supplement as indicated * Trend H/H (7) Hyponatremia: Code(s): E87.1 - Hypo-osmolality and hyponatremia Status: Acute Assessment and Plan: * Sodium getting better at 126 today * urine studies show sodium of 77, urea 770, creatinine 133.4 * stopped her chlorthalidone and her sertraline which does cause hyponatremia * Desmopressin has been changed * Could be related to the surgery of the craniopharyngioma, as she does not make ADH * 3% saline given * continue to trend sodium * Further management per nephrology, appreciate the recommendations Subjective Date/time seen: 03/08/22 09:25 Interval history: Interval history: Date/Time: 03/02/22 21:12 Narrative: 71-year-old female with past medical history of prior mild dementia, brain tumor resection, Parkinson's disease, coronary artery disease, hypertension, and diabetes who presented to the ER with low back pain. The titi ent reports that with her Parkinson's disease she goes through phases where she falls a lot. She has been fal
--- NOTE | 2022-03-08 09:25 | PM.IMPN ---
Progress Note: A&P Assessment and Plan (1) Burst fracture of lumbar vertebra: Qualifiers: Encounter type: initial encounter Fracture type: closed Qualified Code(s): S32.001A - Stable burst fracture of unspecified lumbar vertebra, initial encounter for closed fracture Code(s): S32.001A - Stable burst fracture of unspecified lumbar vertebra, initial encounter for closed fracture Status: Acute Assessment and Plan: Compression fracture of L1. Secondary to recent fall TLSO brace norco q4hr prn, morphine for breakthrough pain Do not want to take pain medications away as she is still experiencing a lot of pain PT and OT evaluate patient Consider rehab placement given her recent multiple falls (2) Type 2 diabetes mellitus with hyperglycemia, with long-term current use of insulin: Code(s): E11.65 - Type 2 diabetes mellitus with hyperglycemia; Z79.4 - FDC (current) use of insulin Status: Acute Assessment and Plan: Glucose 161 Diabetes mellitus with hyperglycemia Continue home Lantus Placed on moderate sliding scale insulin Accu-Cheks a.c. HS hypoglycemia protocol Trend glucose Adjust therapy as indicated (3) Afib: Code(s): I48.91 - Unspecified atrial fibrillation Status: Acute Assessment and Plan: history of chronic AFib Not on anticoagulation due to frequent falls Rate seems to be controlled Continue propranolol and amiodarone Trend heart rate Adjust therapy as indicated (4) Parkinson disease: Code(s): G20 - Parkinson's disease Status: Acute Assessment and Plan: Probably causing the falls Continue carbidopa/levodopa 25/100mg PO 2 tabs TID PT/OT (5) Essential hypertension: Code(s): I10 - Essential (primary) hypertension Status: Acute Assessment and Plan: Current BP is 122/55 Continue home amiodarone, chlorthalidone, imdur, lisinopril, propanolol Trend BP Adjust therapy as indicated (6) Anemia: Code(s): D64.9 - Anemia, unspecified Status: Acute Assessment and Plan: H/H 10.0/30.9 Anemia labs iron 41, TIBC 319, % sat 13, Ferritin 35.70, B12 > 1000, Folate 9.7 Looks like she takes B12 at home will continue Anemia of chronic disease Supplement as indicated Trend H/H (7) Hyponatremia: Code(s): E87.1 - Hypo-osmolality and hyponatremia Status: Acute Assessment and Plan: Sodium getting better at 126 today urine studies show sodium of 77, urea 770, creatinine 133.4 stopped her chlorthalidone and her sertraline which does cause hyponatremia Desmopressin has been changed Could be related to the surgery of the craniopharyngioma, as she does not make ADH 3% saline given continue to trend sodium Further management per nephrology, appreciate the recommendations Subjective Date/time seen: 03/08/22 09:25 Interval history: Interval history: Date/Time: 03/02/22 21:12 Narrative: 71-year-old female with past medical history of prior mild dementia, brain tumor resection, Parkinson's disease, coronary artery disease, hypertension, and diabetes who presented to the ER with low back pain. The patient reports that with her Parkinson's disease she goes through phases where she falls a lot. She has been falling more over the last couple of weeks. Two days ago the patient was walking and tripped while going over curb and fell backwards landing on her back. Since that time she has had increased pain in her low back as worse with sitting and walking. She has been taking her gabapentin and tramadol at home with little improvement in her pain. She did hit her head when she fell but denies any loss of consciousness. She denies any upper back pain or neck pain. She does have chronic urinary incontinence and states that she does not realize that she needs to urinate until she is
[2022-03-08 11:20] LABS: Glucose Point of Care 153 mg/dl (65-105)
--- NOTE | 2022-03-08 12:08 | P.PNNP_ITS ---
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); FSH pending * assuming this is all just an imbalance of desmopressin and fluid intake, DDAVP was reduced and now subsequently stopped * surprisingly, her urine output has not really increased much despite discontinuation of DDAVP * however, sodium is improving at this time * other risk factors include: * chlorthalidone use - on hold * sertraline use - on hold * pain issues (lumbar vertebrae fracture) * continue to follow trend of sodium levels (2) Burst fracture of lumbar vertebra: Qualifiers: Encounter type: initial encounter Fracture type: closed Qualified Code(s): S32.001A - Stable burst fracture of unspecified lumbar vertebra, initial encounter for closed fracture Code(s): S32.001A - Stable burst fracture of unspecified lumbar vertebra, initial encounter for closed fracture Status: Acute Assessment and Plan: * brace in place * pain control * PT/OT as tolerated (3) Essential hypertension: Code(s): I10 - Essential (primary) hypertension Status: Chronic Assessment and Plan: * reasonable control at this time * follow trend of hemodynamics (4) Afib: Code(s): I48.91 - Unspecified atrial fibrillation Status: Chronic Assessment and Plan: * rate control strategy * not on anticoagulation due to fall risk (5) Diabetes: Code(s): E11.9 - Type 2 diabetes mellitus without complications Status: Chronic Assessment and Plan: * follow accuchecks * on SSI Will continue to follow. Subjective Date/time seen: 03/08/22 12:08 Apparently some intermittent confusion per nursing but more oriented at the time of my visit; still with issues related to back pain; stable hemodynamics and sodium has continued to slowly improve; urine output relatively stable since being off DDAVP. Exam Narrative: General: WD/WN female in NAD Heart: normal S1 and S2; no rub Lungs: clear to auscultation Abdomen: soft, nontender, nondistended, positive bowel sounds Extremities: no cyanosis or clubbing; no edema Skin: warm and intact Objective Data Vital Signs Vital Signs: Vital Signs Temp Pulse Resp BP Pulse Ox 03/08/22 08:20 66 03/08/22 06:00 37.2 C 52 L 18 122/55 L 94 03/07/22 22:00 36.5 C 54 L 18 115/46 L 97 03/07/22 21:07 93 03/07/22 14:00 36.2 C L 59 L 19 100/45 L 92 Intake/Output Intake/Output: Intake & Output 03/05/22 03/06/22 03/07/22 03/08/22 23:59 23:59 23:59 23:59 Intake Total 680 240 625 100 Output Total 300 710 Balance 680 -60 -85 100 Meds/Results Medications: Active Medications Generic Name Dose Route Start Last Admin Trade Name Freq PRN Reason Stop Dose Admin Hydrocodone Bitart/Acetaminophen 1 tab
--- NOTE | 2022-03-08 12:08 | PM.PNNEP ---
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); FSH pending assuming this is all just an imbalance of desmopressin and fluid intake, DDAVP was reduced and now subsequently stopped surprisingly, her urine output has not really increased much despite discontinuation of DDAVP however, sodium is improving at this time other risk factors include: chlorthalidone use - on hold sertraline use - on hold pain issues (lumbar vertebrae fracture) continue to follow trend of sodium levels (2) Burst fracture of lumbar vertebra: Qualifiers: Encounter type: initial encounter Fracture type: closed Qualified Code(s): S32.001A - Stable burst fracture of unspecified lumbar vertebra, initial encounter for closed fracture Code(s): S32.001A - Stable burst fracture of unspecified lumbar vertebra, initial encounter for closed fracture Status: Acute Assessment and Plan: brace in place pain control PT/OT as tolerated (3) Essential hypertension: Code(s): I10 - Essential (primary) hypertension Status: Chronic Assessment and Plan: reasonable control at this time follow trend of hemodynamics (4) Afib: Code(s): I48.91 - Unspecified atrial fibrillation Status: Chronic Assessment and Plan: rate control strategy not on anticoagulation due to fall risk (5) Diabetes: Code(s): E11.9 - Type 2 diabetes mellitus without complications Status: Chronic Assessment and Plan: follow accuchecks on SSI Will continue to follow. Subjective Date/time seen: 03/08/22 12:08 Apparently some intermittent confusion per nursing but more oriented at the time of my visit; still with issues related to back pain; stable hemodynamics and sodium has continued to slowly improve; urine output relatively stable since being off DDAVP. Exam Narrative: General: WD/WN female in NAD Heart: normal S1 and S2; no rub Lungs: clear to auscultation Abdomen: soft, nontender, nondistended, positive bowel sounds Extremities: no cyanosis or clubbing; no edema Skin: warm and intact Objective Data Vital Signs Vital Signs: Vital Signs Temp Pulse Resp BP Pulse Ox 03/08/22 08:20 66 03/08/22 06:00 37.2 C 52 L 18 122/55 L 94 03/07/22 22:00 36.5 C 54 L 18 115/46 L 97 03/07/22 21:07 93 03/07/22 14:00 36.2 C L 59 L 19 100/45 L 92 Intake/Output Intake/Output: Intake & Output 03/05/22 03/06/22 03/07/22 03/08/22 23:59 23:59 23:59 23:59 Intake Total 680 240 625 100 Output Total 300 710 Balance 680 -60 -85 100 Meds/Results Medications: Active Medications Generic Name Dose Route Start Last Admin Trade Name Freq PRN Reason Stop Dose Admin Hydrocodone Bitart/Acetaminophen 1 tab 03/04/22 10:49 03/08/22 09:20 Hydrocodone/Acetaminophen (*Crx) 5-325 Mg Tablet PO 1 tab Q4H PRN Administration Pain Rated 4-6 Amiodarone HCl 200 mg 03/03/22 08:00 03/08/22 08:20 Amiodarone Hcl 200 Mg Tablet PO 200 mg DAILY@0800 CARROLL Administration Benzocaine 1 lozenge 03/07/22 22:53 03/07/22 23:22 Benzocaine/Menthol (*Bkc) 18 Ea Lozenge PO 1 lozenge PRN PRN Administration Sore Throat Carbidopa/Levodopa 2 tablet 03/02/22 22:50 03/08/22 08:19 Carbidopa/Levodopa 25/100 Mg Tablet PO 2 tablet TIDWM CARROLL Administration Clopidogrel Bisulfate 75 mg 03/03/22 09:00 03/08/22 08:19 Clopidogrel Bisulfate 75 Mg Tablet PO 75 mg DAILY CARROLL Administration
[2022-03-08 14:00] VITALS: BP 135/52; PULSE 63; RESP 14; TEMP 37.1; O2SAT 97
[2022-03-08 16:31] LABS: Glucose Point of Care 181 mg/dl (65-105)
[2022-03-08 20:07] VITALS: PULSE 54
[2022-03-08] MEDS: HYDROCORTISONE 10 MG TABLET 5 MG PO (20:07)
[2022-03-08 22:00] VITALS: BP 113/46; PULSE 48; RESP 16; TEMP 36.2; O2SAT 97
[2022-03-09 05:25] VITALS: BP 137/56; PULSE 53; RESP 18; TEMP 36.4; O2SAT 96
[2022-03-09] MEDS: LEVOTHYROXINE SODIUM 88 MCG TABLET PO (05:31)
[2022-03-09 05:46] LABS: Basophils Percent Auto 0.3 % (0.2-1.2); Eosinophils Absolute Auto 0.3 K/mm3 (0-0.3); Hemoglobin 9.8 g/dL (12.0-15.0); Immature Granulocyte Absolute 0.08 K/mm3 (0.00-0.031); Immature Granulocyte Percent A 1.2 % (0-0.5); Lymphocytes Absolute Auto 1.77 K/mm3 (0.9-3.2); Lymphocytes Percent Auto 26.2 % (18.3-44.2); Mean Corpuscular HGB Conc 32.7 g/dl (32-36); Mean Corpuscular Hemoglobin 25.5 pg (26-34); Mean Corpuscular Volume 77.9 fl (80-100); Mean Platelet Volume 9.7 fl (7.4-10.4); Monocytes Absolute Auto 0.8 K/mm3 (0.1-0.6); Monocytes Percent Auto 11.3 % (2.6-8.5); Neutrophils Absolute Auto 3.8 K/mm3 (1.3-6.7); Platelet Count Result 284 k/mm3 (150-375); Red Blood Count 3.85 M/mm3 (4.2-5.4); Red Cell Distribution Width 16.6 % (11.5-14.5); White Blood Count 6.8 K/mm3 (4.5-10.0)
[2022-03-09 06:01] LABS: Anion Gap 9 mmol/L (8-16); Blood Urea Nitrogen 19 mg/dL (7-17); Calcium 8.2 mg/dL (8.4-10.2); Carbon Dioxide 22 mmol/L (22-30); Chloride 95 mmol/L (98-107); Estimated CRCL calculation 38 ml/min; Estimated Glomerular Filt Rate 49; Glucose 157 mg/dL (65-110); Potassium 4.4 mmol/L (3.4-5.0); Sodium 126 mmol/L (137-145)
[2022-03-09 06:05] LABS: Glucose Point of Care 169 mg/dl (65-105)
[2022-03-09 07:48] LABS: Glucose Point of Care 147 mg/dl (65-105)
[2022-03-09] MEDS: CLOPIDOGREL BISULFATE 75 MG TABLET PO (08:14)
[2022-03-09] MEDS: lisinopriL 20 MG TABLET 40 MG PO (08:15)
[2022-03-09] MEDS: AMIODARONE HCL 200 MG TABLET PO (08:15)
[2022-03-09] MEDS: GABAPENTIN 300 MG CAPSULE PO ×3 (08:15→16:29)
[2022-03-09] MEDS: POTASSIUM CHLORIDE 20 MEQ TABLET.ER PO ×2 (08:15→16:28)
[2022-03-09] MEDS: QUEtiapine FUMARATE 25 MG TABLET 50 MG PO ×3 (08:15→16:29)
[2022-03-09] MEDS: ISOSORBIDE MONONITRATE 60 MG TAB.ER.24H PO (08:16)
[2022-03-09] MEDS: CARBIDOPA/LEVODOPA 25/100 MG TABLET 2 TABLET PO ×3 (08:16→16:28)
[2022-03-09] MEDS: OMEGA 3 POLYUNSAT FATTY ACIDS 1 GM CAP PO ×2 (08:16→16:28)
[2022-03-09] MEDS: CHOLECALCIFEROL 1,000 UNITS TABLET 1000 UNITS PO (08:16)
[2022-03-09] MEDS: CYANOCOBALAMIN 1,000 MCG TABLET 1000 MCG PO (08:16)
[2022-03-09] MEDS: ROSUVASTATIN 10 MG TABLET 20 MG PO (08:16)
[2022-03-09] MEDS: SALINE 0.65% NAS SOLN 44 ML BTL 1 SPRAY NASAL (08:17)
[2022-03-09] MEDS: HYDROcodone/acetaminophen (*CRX) 5-325 MG TABLET 1 TAB PO (10:37)
[2022-03-09 11:38] LABS: Glucose Point of Care 213 mg/dl (65-105)
[2022-03-09] MEDS: INSULIN ASPART (*BKC) 100 UNITS/ML SUB-Q ×2 (12:15→16:29)
--- NOTE | 2022-03-09 12:30 | P.DS_ITS ---
DS: Admitting Diagnosis Discharge Date 03/09/22 1230 Admitting Diagnosis Burst fracture of lumbar vertebra, hyponatremia DS: Discharge Diagnosis Discharge Diagnosis (1) Burst fracture of lumbar vertebra: Qualifiers: Encounter type: initial encounter Fracture type: closed Qualified Code(s): S32.001A - Stable burst fracture of unspecified lumbar vertebra, initial encounter for closed fracture Code(s): S32.001A - Stable burst fracture of unspecified lumbar vertebra, initial encounter for closed fracture Status: Acute Assessment and Plan: * Compression fracture of L1. * Secondary to recent fall * TLSO brace * norco q4hr prn, morphine for breakthrough pain * Do not want to take pain medications away as she is still experiencing a lot of pain * PT and OT evaluate patient * Consider rehab placement given her recent multiple falls (2) Type 2 diabetes mellitus with hyperglycemia, with long-term current use of insulin: Code(s): E11.65 - Type 2 diabetes mellitus with hyperglycemia; Z79.4 - [facility] (current) use of insulin Status: Acute Assessment and Plan: * Glucose 161 * Diabetes mellitus with hyperglycemia * Continue home Lantus * Placed on moderate sliding scale insulin * Accu-Cheks a.c. HS * hypoglycemia protocol * Trend glucose * Adjust therapy as indicated (3) Afib: Code(s): I48.91 - Unspecified atrial fibrillation Status: Acute Assessment and Plan: * history of chronic AFib * Not on anticoagulation due to frequent falls * Rate seems to be controlled * Continue propranolol and amiodarone * Trend heart rate * Adjust therapy as indicated (4) Parkinson disease: Code(s): G20 - Parkinson's disease Status: Acute Assessment and Plan: * Probably causing the falls * Continue carbidopa/levodopa 25/100mg PO 2 tabs TID * PT/OT (5) Essential hypertension: Code(s): I10 - Essential (primary) hypertension Status: Acute Assessment and Plan: * Current BP is 122/55 * Continue home amiodarone, chlorthalidone, imdur, lisinopril, propanolol * Trend BP * Adjust therapy as indicated (6) Anemia: Code(s): D64.9 - Anemia, unspecified Status: Acute Assessment and Plan: * H/H 10.0/30.9 * Anemia labs iron 41, TIBC 319, % sat 13, Ferritin 35.70, B12 > 1000, Folate 9.7 * Looks like she takes B12 at home will continue * Anemia of chronic disease * Supplement as indicated * Trend H/H (7) Hyponatremia: Code(s): E87.1 - Hypo-osmolality and hyponatremia Status: Acute Assessment and Plan: * Sodium getting better at 126 today * Start sodium tabs 500 mg b.i.d. * urine studies show sodium of 77, urea 770, creatinine 133.4 * stopped her chlorthalidone and her sertraline which does cause hyponatremia * Desmopressin has been changed * Could be related to the surgery of the craniopharyngioma, as she does not make ADH * 3% saline given * continue to trend sodium * Further management per nephrology, appreciate the recommendations DS: Summary Hospital Course Hospital Course: Patient is a 71-year-old female with a past medical history of brain tumor resection, Parkinson's disease, CAD, hypertension, and diabetes who presented to the ED with lower back pain. Patient does have Parkinson's disease and
--- NOTE | 2022-03-09 12:30 | PM.DS ---
DS: Admitting Diagnosis Discharge Date 03/09/22 1230 Admitting Diagnosis Burst fracture of lumbar vertebra, hyponatremia DS: Discharge Diagnosis Discharge Diagnosis (1) Burst fracture of lumbar vertebra: Qualifiers: Encounter type: initial encounter Fracture type: closed Qualified Code(s): S32.001A - Stable burst fracture of unspecified lumbar vertebra, initial encounter for closed fracture Code(s): S32.001A - Stable burst fracture of unspecified lumbar vertebra, initial encounter for closed fracture Status: Acute Assessment and Plan: Compression fracture of L1. 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 HS hypoglycemia protocol Trend glucose Adjust therapy as indicated (3) Afib: Code(s): I48.91 - Unspecified atrial fibrillation Status: Acute Assessment and Plan: history of chronic AFib Not on anticoagulation due to frequent falls Rate seems to be controlled Continue propranolol and amiodarone Trend heart rate Adjust therapy as indicated (4) Parkinson disease: Code(s): G20 - Parkinson's disease Status: Acute Assessment and Plan: Probably causing the falls Continue carbidopa/levodopa 25/100mg PO 2 tabs TID PT/OT (5) Essential hypertension: Code(s): I10 - Essential (primary) hypertension Status: Acute Assessment and Plan: Current BP is 122/55 Continue home amiodarone, chlorthalidone, imdur, lisinopril, propanolol Trend BP Adjust therapy as indicated (6) Anemia: Code(s): D64.9 - Anemia, unspecified Status: Acute Assessment and Plan: H/H 10.0/30.9 Anemia labs iron 41, TIBC 319, % sat 13, Ferritin 35.70, B12 > 1000, Folate 9.7 Looks like she takes B12 at home will continue Anemia of chronic disease Supplement as indicated Trend H/H (7) Hyponatremia: Code(s): E87.1 - Hypo-osmolality and hyponatremia Status: Acute Assessment and Plan: Sodium getting better at 126 today Start sodium tabs 500 mg b.i.d. urine studies show sodium of 77, urea 770, creatinine 133.4 stopped her chlorthalidone and her sertraline which does cause hyponatremia Desmopressin has been changed Could be related to the surgery of the craniopharyngioma, as she does not make ADH 3% saline given continue to trend sodium Further management per nephrology, appreciate the recommendations DS: Summary Hospital Course Hospital Course: Patient is a 71-year-old female with a past medical history of brain tumor resection, Parkinson's disease, CAD, hypertension, and diabetes who presented to the ED with lower back pain. Patient does have Parkinson's disease and she does claim to having fall issues. Prior to coming in here patient tripped and fell backwards and landed on her back. Patient had been placed in TLSO brace and was working with PT and OT. As we were waiting for placement patient's sodium had dropped and got as low as 118. Nephrology was consulted and patient was given 3% saline. Urine study showed that she is urinating her sodium out 77. Medications have been adjusted. Patient denies any chest pain, shortness of breath, nausea, vomiting, diarrhea, constipation, weakness or fatigue. I did talk to the patient about leaving and
--- NOTE | 2022-03-09 12:59 | P.PNNP_ITS ---
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); FSH pending * assuming this is all just an imbalance of desmopressin and fluid intake, DDAVP was reduced and now subsequently stopped * surprisingly, her urine output has not really increased much despite discontinuation of DDAVP * however, sodium is improving at this time * other risk factors include: * chlorthalidone use - on hold * sertraline use - on hold * pain issues (lumbar vertebrae fracture) * continue to follow trend of sodium levels (2) Burst fracture of lumbar vertebra: Qualifiers: Encounter type: initial encounter Fracture type: closed Qualified Code(s): S32.001A - Stable burst fracture of unspecified lumbar vertebra, initial encounter for closed fracture Code(s): S32.001A - Stable burst fracture of unspecified lumbar vertebra, initial encounter for closed fracture Status: Acute Assessment and Plan: * brace in place * pain control * PT/OT as tolerated (3) Essential hypertension: Code(s): I10 - Essential (primary) hypertension Status: Chronic Assessment and Plan: * reasonable control at this time * follow trend of hemodynamics (4) Afib: Code(s): I48.91 - Unspecified atrial fibrillation Status: Chronic Assessment and Plan: * rate control strategy * not on anticoagulation due to fall risk (5) Diabetes: Code(s): E11.9 - Type 2 diabetes mellitus without complications Status: Chronic Assessment and Plan: * follow accuchecks * on SSI Will continue to follow. Subjective Date/time seen: 03/09/22 12:59 Appears to be doing reasonably well at the time of my visit; pain control seems stable with current interventions; tells me that her sodium always fluctuates and has been hospitalized several times for this issues and does not appear to concerned about this issue; asking about potential discharge today. Exam Narrative: General: WD/WN female in NAD Heart: normal S1 and S2; no rub Lungs: clear to auscultation Abdomen: soft, nontender, nondistended, positive bowel sounds Extremities: no cyanosis or clubbing; no edema Skin: warm and intact Objective Data Vital Signs Vital Signs: Vital Signs Temp Pulse Resp BP Pulse Ox 03/09/22 14:00 36.3 C L 51 L 20 129/47 L 94 03/09/22 05:25 36.4 C L 53 L 18 137/56 L 96 03/08/22 22:00 36.2 C L 48 L 16 113/46 L 97 03/08/22 20:07 54 L Intake/Output Intake/Output: Intake & Output 03/06/22 03/07/22 03/08/22 03/09/22 23:59 23:59 23:59 23:59 Intake Total 240 625 820 700 Output Total 300 710 650 Balance -60 -85 820 50 Meds/Results Radiology Results: ITS Impressions Head CT 03/02/22 15:18 IMPRESSION: 1. No acute intracranial findings. 2. Chronic age related findings.
--- NOTE | 2022-03-09 12:59 | PM.PNNEP ---
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); FSH pending assuming this is all just an imbalance of desmopressin and fluid intake, DDAVP was reduced and now subsequently stopped surprisingly, her urine output has not really increased much despite discontinuation of DDAVP however, sodium is improving at this time other risk factors include: chlorthalidone use - on hold sertraline use - on hold pain issues (lumbar vertebrae fracture) continue to follow trend of sodium levels (2) Burst fracture of lumbar vertebra: Qualifiers: Encounter type: initial encounter Fracture type: closed Qualified Code(s): S32.001A - Stable burst fracture of unspecified lumbar vertebra, initial encounter for closed fracture Code(s): S32.001A - Stable burst fracture of unspecified lumbar vertebra, initial encounter for closed fracture Status: Acute Assessment and Plan: brace in place pain control PT/OT as tolerated (3) Essential hypertension: Code(s): I10 - Essential (primary) hypertension Status: Chronic Assessment and Plan: reasonable control at this time follow trend of hemodynamics (4) Afib: Code(s): I48.91 - Unspecified atrial fibrillation Status: Chronic Assessment and Plan: rate control strategy not on anticoagulation due to fall risk (5) Diabetes: Code(s): E11.9 - Type 2 diabetes mellitus without complications Status: Chronic Assessment and Plan: follow accuchecks on SSI Will continue to follow. Subjective Date/time seen: 03/09/22 12:59 Appears to be doing reasonably well at the time of my visit; pain control seems stable with current interventions; tells me that her sodium always fluctuates and has been hospitalized several times for this issues and does not appear to concerned about this issue; asking about potential discharge today. Exam Narrative: General: WD/WN female in NAD Heart: normal S1 and S2; no rub Lungs: clear to auscultation Abdomen: soft, nontender, nondistended, positive bowel sounds Extremities: no cyanosis or clubbing; no edema Skin: warm and intact Objective Data Vital Signs Vital Signs: Vital Signs Temp Pulse Resp BP Pulse Ox 03/09/22 14:00 36.3 C L 51 L 20 129/47 L 94 03/09/22 05:25 36.4 C L 53 L 18 137/56 L 96 03/08/22 22:00 36.2 C L 48 L 16 113/46 L 97 03/08/22 20:07 54 L Intake/Output Intake/Output: Intake & Output 03/06/22 03/07/22 03/08/22 03/09/22 23:59 23:59 23:59 23:59 Intake Total 240 625 820 700 Output Total 300 710 650 Balance -60 -85 820 50 Meds/Results Radiology Results: ITS Impressions Head CT 03/02/22 15:18 IMPRESSION: 1. No acute intracranial findings. 2. Chronic age related findings. Lumbar Spine CT 03/02/22 15:22 IMPRESSION: 1. Acute L2 burst fracture with mild retropulsion, mild to moderate central canal stenosis. 2. Mild to moderate lumbar spondylosis. Chest X-Ray 03/02/22 15:32 IMPRESSION: No acute cardiopulmonary process. Pelvis X-Ray 03/02/22 15:34 IMPRESSION: No acute osseous finding in the pelvis. Labs Labs: Laboratory Tests 03/09/22 05:28 03/09/22 05:28
[2022-03-09 14:00] VITALS: BP 129/47; PULSE 51; RESP 20; TEMP 36.3; O2SAT 94
[2022-03-09 15:47] LABS: FSH 0.8 mIU/mL (***)
[2022-03-09 16:26] LABS: Glucose Point of Care 211 mg/dl (65-105)
[2022-03-09] MEDS: SODIUM CHLORIDE 500 MG TABLET PO (16:29)
== END 2022-03-09 17:35 | DRG 552 ==
LOC: ANHED 18:42 → ANH3MEDSUR 19:01
PROVIDERS: Internal Medicine Nephrology; Physician Assistant; Admitting Provider Hospitalist; Emergency Provider Emergency Medicine; PCP Internal Medicine; Visit Provider Nurse Practitioner
DX: S32.021A Stable burst fracture of second lumbar vertebra, initial encounter for closed fracture (principal); E87.1 Hypo-osmolality and hyponatremia; E11.22 Type 2 diabetes mellitus with diabetic chronic kidney disease; I12.9 Hypertensive chronic kidney disease with stage 1 through stage 4 chronic kidney disease, or unspecified chronic kidney disease; N18.30 Chronic kidney disease, stage 3 unspecified; Z20.822 Contact with and (suspected) exposure to COVID-19; E11.65 Type 2 diabetes mellitus with hyperglycemia; G20 Parkinson's disease; I25.10 Atherosclerotic heart disease of native coronary artery without angina pectoris; W19.XXXA Unspecified fall, initial encounter; M85.80 Other specified disorders of bone density and structure, unspecified site; E11.42 Type 2 diabetes mellitus with diabetic polyneuropathy; F03.90 Unspecified dementia, unspecified severity, without behavioral disturbance, psychotic disturbance, mood disturbance, and anxiety; D63.8 Anemia in other chronic diseases classified elsewhere; E03.9 Hypothyroidism, unspecified; E78.5 Hyperlipidemia, unspecified; Z79.4 Long term (current) use of insulin; Z95.1 Presence of aortocoronary bypass graft; Z86.73 Personal history of transient ischemic attack (TIA), and cerebral infarction without residual deficits; Z95.5 Presence of coronary angioplasty implant and graft; Z90.710 Acquired absence of both cervix and uterus; Z90.722 Acquired absence of ovaries, bilateral; Z98.42 Cataract extraction status, left eye; Z98.41 Cataract extraction status, right eye; Z96.1 Presence of intraocular lens
CPT/HCPCS: 36415; 70450; 71045; 72131; 72170; 80048; 80053; 82533; 82570; 82607; 82728; 82746; 82948; 83001; 83540; 83550; 83615; 83735; 83880; 83935; 84100; 84295; 84300; 84439; 84443; 84466; 84480; 84540; 85025; 85610; 85730; 93005; 96374; 96375; 96376; 97110; 97161; 97166; 97530; 97535; 99285; A9270; C9803; G0378; J1815; J2270; J3475; J7030; J7131; U0003; U0005

== ENCOUNTER 2022-03-12 14:06 | Emergency (ER) | payer MEDICARE, SELFPAY ==
[2022-03-12] VITALS (17 sets, daily range): BP systolic 76–108; BP diastolic 37–89; PULSE 39–55; RESP 20–22; TEMP 36.9; O2SAT 88–99
--- NOTE | ~2022-03-12 | XR_ITS ---
EXAMINATION: XR chest 1V portable Exam Date/Time: 03/12/2022 15:09 CDT CLINICAL HISTORY: altered mental status Comparison: 03/02/2022.. RESULT: Lines, tubes, and devices: Cholecystectomy clips. Surgical clips over the GE junction and mediastinu m. Lungs and pleura: Low lung volumes. Bilateral linear atelectasis/scar, otherwise clear. Cardiomediastinal silhouette: Stable cardiomediastinal silhouette. Other: No acute osseous or upper abdominal finding. IMPRESSION: No acute cardiopulmonary process Reviewed, dictated and finalized at location K.
--- NOTE | ~2022-03-12 | CT_ITS ---
EXAMINATION: CT abdomen pelvis wo con DATE: 03/12/2022 15:29 INDICATION: abdominal pain TECHNIQUE: Computed tomography (CT) of the abdomen and pelvis was performed without intravenous contr ast. Automated exposure control was employed. The dose-length product was 667.55 mGy-cm. COMPARISON: 09/18/2021. FINDINGS: Lower thorax: Bibasilar atelectasis/scar. Coronary artery stent. Coronary artery calcifications. Liver: Granulomatous calcifications. Biliary/Gallbladder: Gallbladder is absent. No bile duct dilation. Spleen: Granulomatous calcifications. Pancreas: No mass or duct dilation. Significant atrophy. Adrenals:No mass. Kidneys: No mass, stone, or hydronephrosis. GI tract: No small or large bowel dilation. Normal appendix. Diverticulosis without evidence of diver ticulitis. Mesentery/Peritoneum: No ascites, mass, or free air. Retroperitoneum: No mass. Pelvis: 3.3 cm right ovarian cystic lesion, demonstrating interval growth since the prior. Bladder wa ll thickening with mild surrounding inflammatory change. Bones/Soft Tissues: Soft tissues and body wall unremarkable. Superior endplate fracture at L2 involvi ng the anterior and posterior cortices. 5 mm retropulsion of fracture fragments. Additional Findings: None. IMPRESSION: Possibly acute incomplete burst fracture of L2, with fragment retropulsion causing severe central can al narrowing. Possible cystitis. Enlarging 3.3 cm ovarian cyst, recommend outpatient pelvic ultrasoun d for further characterization. Reviewed, dictated and finalized at location K. IMPRESSION: Possibly acute incomplete burst fracture of L2, with fragment retropulsion caus ing severe central canal narrowing. Possible cystitis. Enlarging 3.3 cm ovarian cyst, recommend outpatient pelvic ultrasound for further characterization.
--- NOTE | ~2022-03-12 | CT_ITS ---
EXAMINATION: CT brain wo con DATE: 03/12/2022 15:29 INDICATION: Altered mental status TECHNIQUE: Computed tomography (CT) of the head was performed without intravenous contrast. The mA wa s adjusted according to patient size. Iterative reconstruction technique was employed. The dose-lengt h product was 605.33 mGy-cm. COMPARISON: 03/02/2022. FINDINGS: No acute intracranial hemorrhage or extra-axial fluid collection. No hydrocephalus, mass, or herniation. No acute ischemic infarct. Unremarkable dural venous sinus attenuation. No acute osseous abnormality. The aerated spaces are clear. Old right frontotemporal craniotomy. Atherosclerotic intracranial calcifications. Bilateral lens repl acements. Likely sebaceous cyst in the left scalp. Mild atrophy and chronic white matter change. IMPRESSION: No acute intracranial process. Reviewed, dictated and finalized at location K.
--- NOTE | 2022-03-12 14:20 | ECG_ITS ---
Measurements Intervals [place] Rate: 38 P: [place]: 0 QRS: 41 QRSD: 108 T: 185 QT: 554 QTc: 442 Interpretive Statements PROBABLE JUNCTIONAL BRADYCARDIA INCOMPLETE RIGHT BUNDLE BRANCH BLOCK [90+ ms QRS DURATION, TERMINAL R IN V1/V2, 40+ ms S IN I/aVL/V4/V5/V6] ST DEVIATION AND MODERATE T-WAVE ABNORMALITY, CONSIDER ANTEROLATERAL ISCHEMIA [-0.1+ mV T-WAVE IN V3-V6] ST DEVIATION AND MODERATE T-WAVE ABNORMALITY, CONSIDER INFERIOR ISCHEMIA [-0.1+ mV T- WAVE IN II/aVF] PROLONGED QT INTERVAL CRITICAL TEST RESULT LATERAL ST ABNORMALITY, CONSIDER DIGITALIS EFFECT ABNORMAL ECG Electronically Signed On 03-13-2022 11:10:59 CDT by Hubert Carreno M.D.
[2022-03-12] MEDS: ATROPINE SULFATE 1 MG/ML VIAL (14:52)
[2022-03-12] MEDS: CALCIUM GLUCONATE 1,000 MG/10 ML VIAL 1000 MG IV PUSH ×2 (14:52→17:08)
[2022-03-12 14:57] LABS: Base Excess ABG -4.7 mmol/L (0-2); HCO3 ABG 19.1 mmol/L (23-29); Oxygen Content ABG 13.1 %vol (16.0-22.0); Oxygen Saturation ABG 97.6 % (95-97); Oxyhemoglobin 96.7 % (94-100); PCO2 ABG 30.7 mmHg (35-45); PO2 ABG 108.6 mmHg (75-85); Total Hemoglobin 9.5 g/dL (12.0-18.0); pH ABG 7.41 (7.35-7.45)
[2022-03-12] MEDS: SODIUM CHLORIDE 0.9% IV 1,000 ML 999 ML IV CONT ×3 (14:57→16:40)
[2022-03-12 14:58] LABS: Basophils Absolute Auto 0.05 K/mm3 (0.00-0.10); Basophils Percent Auto 0.5 % (0.0-1.0); Eosinophils Absolute Auto 0.53 K/mm3 (0.02-0.50); Eosinophils Percent Auto 5.1 % (1.0-6.0); Hematocrit 27.5 % (35.0-42.0); Hemoglobin 8.4 g/dL (11.7-13.8); Immature Granulocyte Percent A 1.9 % (0.0-0.0); Lymphocytes Absolute Auto 2.77 K/mm3 (1.10-4.50); Lymphocytes Percent Auto 26.8 % (18.0-42.0); Mean Corpuscular HGB Conc 30.5 g/dL (32.0-36.0); Mean Corpuscular Hemoglobin 25.1 pg (27.0-31.0); Mean Corpuscular Volume 82.3 fL (78.0-102.0); Mean Platelet Volume 9.6 fl (9.2-11.8); Monocytes Absolute Auto 1.46 K/mm3 (0.10-0.90); Monocytes Percent Auto 14.1 % (2.0-11.0); Neutrophils Absolute Auto 5.3 K/mm3 (1.7-7.2); Neutrophils Percent Auto 51.6 % (50.0-70.0); Platelet Count Result 344 K/mm3 (150-420); Red Blood Count 3.34 M/mm3 (4.20-5.40); Red Cell Distribution Width 16.7 % (11.6-14.4); White Blood Count 10.4 K/mm3 (4.8-10.8)
[2022-03-12 15:01] LABS: Device ROOM AIR; Modified Allen's Test Pass; Site Drawn LEFT BRACHIAL
[2022-03-12] MEDS: ATROPINE SULFATE 1 MG/10 ML SYRINGE 0.5 MG IV PUSH (15:04)
[2022-03-12 15:06] LABS: Add Urine Microscopic? YES; Appearance Urine Turbid (Clear); Bilirubin Urine 2+ (Negative); Blood Urine 2+ (Negative); Color Urine Dark Yellow (Yellow); Glucose Urine UA Negative (Negative); Ketones Urine Trace (Negative); Leukocyte Esterase Ur 2+ (Negative); Nitrate Urine Negative (Negative); Protein Urine 2+ (Negative); Specific Grav Ur >= 1.030 (1.010-1.020)
[2022-03-12 15:09] LABS: INR 1.3; Partial Thromboplastin Time 33.4 SEC (23.90-30.70); Prothrombin Time 14.1 Seconds (9.50-12.10)
[2022-03-12 15:11] LABS: Bacteria Urine 2+ /hpf; Squamous Epithelial Cell Urine Rare /hpf (Few); WBC Urine >75 /hpf (0-3)
[2022-03-12 15:14] LABS: D Dimer 0.91 mg/L (0.19-0.50)
--- NOTE | 2022-03-12 15:14 | PC.NURSE ---
Ddimer 0.91, erp is made aware.
[2022-03-12 15:16] LABS: Lactic Acid Reflex 0.9 mmol/L (0.4-2.0)
[2022-03-12 15:22] LABS: Alanine Aminotransferase 13 U/L (14-59); Albumin Level 2.2 g/dL (3.4-5.0); Alkaline Phosphatase 132 U/L (46-116); Anion Gap 9 mmol/L (8-16); Aspartate Amino Transferase 61 U/L (15-37); Bilirubin,Total 0.4 mg/dL (0.00-1.00); Blood Urea Nitrogen 24 mg/dL (7-18); Calcium 7.7 mg/dL (8.5-10.1); Carbon Dioxide 20 mmol/L (21-32); Chloride 105 mmol/L (98-108); Creatine Kinase 718 U/L (26-192); Estimated CRCL calculation 11 ml/min; Estimated Glomerular Filt Rate 12; Glucose 181 mg/dL (70-99); Osmolality Calculated 287 mOsm/kg (285-295); Sodium 134 mmol/L (136-145); Total Protein 5.1 g/dL (6.4-8.2)
[2022-03-12 15:22] LABS: Amphetamine Screen Urine Negative (Negative); Barbiturate Screen Urine Negative (Negative); Benzodiazepines Screen Urine Negative (Negative); Cannabinoid Screen Urine Negative (Negative); Cocaine Screen Urine Negative (Negative); Methadone Screen Urine Negative (Negative); Opiate Screen Urine Positive (Negative); Phencyclidine Screen Urine Negative (Negative)
[2022-03-12 15:23] LABS: Thyroid Stimulating Hormone < 0.01 uIU/mL (0.36-3.74)
--- NOTE | 2022-03-12 15:24 | PC.NURSE ---
patient potassium is 6.7, up from 6.1 at 1100 today.
[2022-03-12 15:25] LABS: Potassium 6.7 mmol/L (3.5-5.1)
[2022-03-12 15:26] LABS: NT Pro B Type Natriuretic Pept 356 pg/mL (0-125)
[2022-03-12] MEDS: DEXTROSE 50% 25 GM/50 ML SYRINGE IV PUSH (15:36)
[2022-03-12] MEDS: INSULIN HUMAN REGULAR (*BKC) 100 UNITS/ML IV PUSH (15:36)
[2022-03-12 15:40] LABS: Glucose Point of Care 184 mg/dl (65-105)
[2022-03-12] MEDS: DOPamine 400 MG/D5W 250 ML 400 MG/250 ML BAG 12.38 MG IV CONT (15:55)
--- NOTE | 2022-03-12 15:57 | ED.GENADULT ---
HPI - General Adult General Chief complaint: Recheck/Abnormal Lab/Rx Stated complaint: ambulance Time Seen by Provider: 03/12/22 15:57 Source: patient, family and EMS Mode of arrival: EMS Limitations: altered mental status History of Present Illness HPI narrative: this is 71-year-old female that was recently discharged from [facility] had a burst fracture of her lumbar spine L2 and has a history of diabetes atrial fibrillation Parkinson's disease coronary artery disease hypertension. The patient had an episode of chronic kidney disease but upon discharge from [facility] her creatinine was 1.10. Patient also has a history of Parkinson's disease with some history of brain tumor resection. EMS was called after she was having altered mental status and staff at [facility] obtain blood work that showed that her potassium level was elevated as well as her creatinine level. Initially her creatinine was 4.04. The patient has chronic back pain from her burst fracture and is currently taking pain medication. The patient is alert answers appropriately denies any chest pain or shortness of breath. The patient upon transfer to ER from [facility] via EMS was given 0.5 of atropine for bradycardia. He has no fever chills on initially her blood pressure was 82/50 with a heart rate upon presentation of 42. Onset (ago): hour(s) Radiation: back Severity: moderate Related Data Home Medications Medication Instructions Recorded Confirmed gabapentin 300 mg capsule 300 mg PO TID 12/25/19 03/12/22 carbidopa 25 mg-levodopa 100 mg 2 tablet PO TID 12/31/19 03/12/22 tablet cholecalciferol (vitamin D3) 25 25 mcg PO DAILY 07/22/20 03/12/22 mcg (1,000 unit) capsule omega-3 fatty acids 1,000 mg 1,000 mg PO BID 12/07/20 03/12/22 capsule cyanocobalamin (vitamin B-12) 1,000 mcg PO DAILY 03/05/21 03/12/22 1,000 mcg capsule amiodarone 200 mg PO DAILY 03/02/22 03/12/22 hydrocortisone 5 mg PO HS 03/02/22 03/12/22 isosorbide mononitrate 60 mg PO DAILY 03/02/22 03/12/22 propranolol 20 mg PO HS 03/02/22 03/12/22 quetiapine 50 mg PO TID 03/02/22 03/12/22 insulin lispro [Humalog KwikPen 1 sliding scale dose SUBCUT 03/03/22 03/12/22 Insulin] USEASDIRECTD Allergies Allergy/AdvReac Type Severity Reaction Status Date / Time metformin Allergy Unknown VERY LOW Verified 03/12/22 17:43 HEARTBEAT,breathing problems Sulfa (Sulfonamide Allergy Unknown Hives,break Verified 03/12/22 17:43 Antibiotics) out Review of Systems Review of Systems: All systems reviewed & are unremarkable except as noted in HPI and below PMFSH Past Medical History Medical History Atrial fibrillation B12 deficiency Blindness of left eye Central hypothyroidism Central hypothyroidism CHF (congestive heart failure) Echo 2018: Pseudonormal diastolic dysfunction grade 2 Chronic kidney disease, stage 3 (moderate) Coronary artery disease With 1 stent and 3 vessel bypass Craniopharyngioma Dementia in Parkinson's disease Depression Diabetes insipidus Diabetes mellitus Diabetic gastroparesis Erosive gastritis Essential hypertension Frequent falls Hyperlipidemia Irritable bowel syndrome Neurodermatitis Occult GI bleeding Requiring transfusion 08/2021 Osteopenia Osteopenia Panhypopituitarism Parkinsons disease Premature atrial contractions Tactile hallucination TIA (transient ischemic attack) Type 2 diabetes mellitus treated with insulin Urge urinary incontinence Viral meningitis (~1993) Vitamin D deficiency Surgical History Surgical History Failed CABG (coronary artery bypass graft) H/O heart bypass surgery (~2003) 3 vessel performed at [facility] History of cardiac catheterization (06/2019) [place] vessel coronary artery disease with CT 0 of distal RCA which is supplied by saphenous vein graft, downs graft to OM is patent with elim ira
[2022-03-12 16:03] LABS: Glucose Point of Care 302 mg/dl (65-105)
[2022-03-12 16:07] LABS: SARS-CoV-2 Ag Negative (Negative)
[2022-03-12 16:14] LABS: Potassium 6.4 mmol/L (3.5-5.1)
[2022-03-12] MEDS: SODIUM POLYSTYRENE SULFONONATE 15 GM/60 ML BTL PO (17:08)
[2022-03-12 17:25] LABS: Glucose Point of Care 274 mg/dl (65-105)
[2022-03-12] MEDS: ONDANSETRON INJ 4 MG/2 ML VIAL (17:32)
== END 2022-03-12 18:53 | disposition short-term general hospital (02) ==
PROVIDERS: Emergency Provider Emergency Medicine; PCP Family Medicine
DX: I95.9 Hypotension, unspecified (principal); R00.1 Bradycardia, unspecified; N17.9 Acute kidney failure, unspecified; I48.91 Unspecified atrial fibrillation; E53.8 Deficiency of other specified B group vitamins; E03.9 Hypothyroidism, unspecified; I50.9 Heart failure, unspecified; E11.9 Type 2 diabetes mellitus without complications; I10 Essential (primary) hypertension; G20 Parkinson's disease; E55.9 Vitamin D deficiency, unspecified; Z79.899 Other long term (current) drug therapy; Z20.822 Contact with and (suspected) exposure to COVID-19
CPT/HCPCS: 36415; 36600; 70450; 71045; 74176; 80053; 80307; 81001; 82550; 82805; 82948; 83605; 83880; 84132; 84443; 84484; 85025; 85380; 85610; 85730; 87040; 87086; 87088; 87426; 93005; 96361; 96365; 96367; 96375; 96376; 99285; A9270; C9803; J0461; J0610; J1265; J1815; J2405; J2543; J7030

== ENCOUNTER 2022-03-29 16:25 | Outpatient (NON) | payer MEDICARE, SELFPAY ==
[2022-03-29 16:53] LABS: Anion Gap 10 mmol/L (8-16); Blood Urea Nitrogen 21 mg/dL (7-18); Calcium 8.8 mg/dL (8.5-10.1); Carbon Dioxide 25 mmol/L (21-32); Chloride 100 mmol/L (98-108); Estimated Glomerular Filt Rate 54; Glucose 345 mg/dL (70-99); Osmolality Calculated 297 mOsm/kg (285-295); Potassium 4.3 mmol/L (3.5-5.1); Sodium 135 mmol/L (136-145)
[2022-04-01 14:15] LABS: Osmolality, Urine 611 mOsm/kg (50-1200)
== END 2022-03-29 16:26 | disposition home or self-care (01) ==
LOC: CHSHH 16:30
PROVIDERS: Visit Provider Internal Medicine
DX: D64.9 Anemia, unspecified (principal); E87.6 Hypokalemia; Z48.812 Encounter for surgical aftercare following surgery on the circulatory system; S32.021D Stable burst fracture of second lumbar vertebra, subsequent encounter for fracture with routine healing; I48.91 Unspecified atrial fibrillation; I25.10 Atherosclerotic heart disease of native coronary artery without angina pectoris
CPT/HCPCS: 36415; 80048; 83935

== ENCOUNTER 2022-03-30 11:42 | Emergency (ER) | payer MEDICARE, SELFPAY ==
[2022-03-30] VITALS (56 sets, daily range): BP systolic 50–141; BP diastolic 35–126; PULSE 40–82; RESP 16–18; O2SAT 80–100
--- NOTE | ~2022-03-30 | XR_ITS ---
EXAMINATION: XR chest port-a-cath/central DATE: 03/30/2022 12:12 INDICATION: Central line placement. TECHNIQUE: A single frontal view of the chest was obtained. COMPARISON: Chest single view 03/12/2022 FINDINGS: The lung volumes are small. There is mild atelectasis at right lung base. No pleural effusi on or pneumothorax. The heart size is normal. A right subclavian central venous catheter is seen with tip in the right atrium. There are surgical clips in the abdomen. There is a left chest pacer lead i n right ventricle. IMPRESSION: 1. Central line tip in right atrium. 2. Small lung volumes with mild atelectasis at right lung base. Reviewed, dictated and finalized at location B.
--- NOTE | ~2022-03-30 | XR_ITS ---
EXAMINATION: XR chest ET placement INDICATION: Endotracheal tube placement TECHNIQUE: Portable AP chest at 1241 hours COMPARISON: 1210 hours FINDINGS: An endotracheal tube has been inserted which ends 2.9 cm above the bria. A right subclavi an central venous catheter ends with its tip in the proximal right atrium. The lung volumes are low. Again noted is atelectasis in the right lung. The heart size is normal. There is a small right pleura l effusion. No pneumothorax is identified. A single lead pacemaker of the left chest wall ends with i ts lead in the right ventricle. IMPRESSION: 1. Endotracheal tube ending approximately 2.9 cm above the bria, otherwise no significant change. Reviewed, dictated and finalized at location A.
--- NOTE | ~2022-03-30 | CT_ITS ---
EXAMINATION: CT brain wo con INDICATION: Decreased responsiveness, lethargy COMPARISON: 03/12/2022 TECHNIQUE: Standard unenhanced head CT. The dose-length product (DLP) was 605.33 mGy-cm. The mA was a djusted according to patient size. Iterative reconstruction technique was employed. FINDINGS: There is no acute intraparenchymal hemorrhage. No evidence of mass lesion. No evidence of a cute infarction. There is mild periventricular and subcortical hypodensity probably related to small vessel ischemic disease. There is mild prominence of the sulci and ventricles related to cerebral atr ophy. Intracranial calcified cerebral atherosclerosis is noted. There are no extra-axial collections. There is no mass effect or midline shift. Changes in the globes are likely from ocular lens surgery. The visualized sinuses and mastoid air cells are well aerated. Changes of prior right frontal cranio myrna are noted. IMPRESSION: 1. No acute intracranial abnormality. 2. Age related findings. Reviewed, dictated and finalized at location A.
--- NOTE | ~2022-03-30 | CT_ITS ---
EXAMINATION: CT chest abdomen pelvis wo con DATE: 03/30/2022 13:01 INDICATION: Shortness of breath. Abnormal pain and constipation. Lethargy and decreased responsivenes s. TECHNIQUE: Computed tomography (CT) of the chest, abdomen, and pelvis was performed without intraveno us contrast. Automated exposure control and iterative reconstruction technique were employed. The dos e-length product was 683.96 mGy-cm. COMPARISON: CT abdomen and pelvis dated 03/12/2022 FINDINGS: CHEST CT: Partial collapse of all but a portion of the superior segment of the right lower lobe. Additional dep endent atelectasis in the left lower and bilateral upper lobes. Difficult to exclude pneumonia in the collapsed portion of the lungs but there is no other suspicious airspace disease in the aerated port ion of the lung to elevate suspicion. Heart size is normal. Atherosclerotic coronary artery calcifica tion. No pericardial effusion. Median sternotomy and change of prior coronary artery bypass grafting. Right subclavian central venous catheter with distal tip at the caudal-most superior vena cava. Left pectoral cardiac pacemaker with lead tip near the apex of the right ventricle. Thoracic aorta is nor mal in caliber. A few calcified right hilar and mediastinal lymph nodes consistent with old granuloma tous disease. Mild thoracic spondylosis. ABDOMEN/PELVIS CT: Cholecystectomy clips at the gallbladder fossa. Liver, pancreas, bilateral adrenal glands and kidneys are normal. Multiple splenic ossifications consistent with old granulomatous disease. Small amount o f relatively dense stool in the distal colon. Liquid with additional small amount of scattered more s olid-appearing stool in the proximal colon consistent with diarrhea. Multiple fluid-filled but not di lated loops of small bowel. No abnormal bowel wall thickening or obstruction. Appendix is normal. Miguel dder is normal. The uterus is not identified and has likely been surgically resected. 3.1 cm right ad nexal cyst. No free intraperitoneal gas or fluid. No pathologically enlarged abdominal or pelvic lymp hadenopathy. Again seen is a relatively recent-appearing L2 burst fracture with 60% anterior vertebra l body height loss and 8 mm retropulsion resulting in moderate central canal stenosis at this level. IMPRESSION: 1. Fluid throughout nondilated small bowel and the proximal to mid colon consistent with diarrhea and suspicious for gastroenteritis. 2. Small bilateral pleural effusions with prominent dependent consolidation in both lungs most likely due to atelectasis although underlying pneumonia is not excludable. 3. 3.1 cm right adnexal cyst. Consider pelvic ultrasound for further evaluation. 4. Relatively recent-appearing L2 burst fracture with 60% anterior vertebral body height loss and ret ropulsion resulting in moderate central canal stenosis. Reviewed, dictated and finalized at location A. IMPRESSION: 1. Fluid throughout nondilated small bowel and the proximal to mid colon consis tent with diarrhea and suspicious for gastroenteritis. 2. Small bilateral pleural effusions with prominent dependent consolidation in both lungs most likely due to atelectasis although underlying pneumonia is not excludable. 3. 3.1 cm right adnexal cyst. Consider pelvic ultrasound for further evaluation . 4. Relatively recent-appearing L2 burst fracture with 60% anterior vertebral rogerio dy height loss and retropulsion resulting in moderate central canal stenosis.
[2022-03-30] MEDS: ATROPINE SULFATE 1 MG/10 ML SYRINGE (11:49)
[2022-03-30] MEDS: SODIUM CHLORIDE 0.9% IV 1,000 ML 999 ML IV CONT (11:50)
[2022-03-30] MEDS: DOPamine 400 MG/D5W 250 ML 400 MG/250 ML BAG 11.25 MG IV CONT (12:00)
[2022-03-30] MEDS: NOREPINEPHRINE 8 MG/D5W 250 ML 8 MG/250 ML BAG 9.38 MG IV CONT (12:11)
--- NOTE | 2022-03-30 12:16 | ED.AMS ---
HPI - Altered Mental Status General Chief Complaint: Arrhythmia/Palpitations Stated Complaint: ambulance Time Seen by Provider: 03/30/22 12:47 Source: patient History of Present Illness HPI narrative: 71-year-old female with a history of coronary artery disease status post CABG in 2000, CHF, atrial fibrillation/ sick sinus syndrome status post pacemaker 1 week ago at [facility] , panhypopituitarism anemia, CKD, elevated LFTs, Parkinson's, diabetes mellitus, hypothyroidism, dyslipidemia was discharged from [facility] 5 days ago. the patient presents with -- the patient has not had any bowel movement for the past 7 days. Yesterday she took some laxatives but did not have any bowel movement. At 3:00 a.m. she developed multiple episodes of vomiting. -- Diffuse abdominal pain -- decreased responsiveness as noted by at 8:00 a.m. -- called EMS who found her to be hypoxic, hypotensive and with a paced rhythm. On arrival to the ER patient was noted to have -- decreased responsiveness. she would occasionally respond to verbal commands. -- Hypotensive with a blood pressure of 50/30 for which she received 1 L of IV fluids and was started on IV dopamine/Levophed. In addition she received 100 mg of IV hydrocortisone with marginal improvement in blood pressure. -- Paced rhythm at 50 beats per minute. -- shortness of breath with oxygen saturation of 95% on non-rebreather mask. Central line was placed in the right subclavian vein the patient was intubated and placed on mechanical ventilation AC 16/4 100/100% with a PEEP of +5 MD complaint: altered mental status and decreased responsiveness Onset (ago): hour(s) ( approximately 5 hours ago) Timing confirmed by: spouse Severity: moderate Consistency of symptoms: waxing and waning Context: drug abuse ( takes p.r.n. Vicodin) Associated symptoms: cough and nausea/vomiting Treatments prior to arrival: oxygen Related Data Home Medications Medication Instructions Recorded Confirmed gabapentin 300 mg capsule 300 mg PO TID 12/25/19 03/30/22 carbidopa 25 mg-levodopa 100 mg 2 tablet PO TID 12/31/19 03/30/22 tablet cholecalciferol (vitamin D3) 25 25 mcg PO BID 07/22/20 03/30/22 mcg (1,000 unit) capsule omega-3 fatty acids 1,000 mg 1,000 mg PO BID 12/07/20 03/30/22 capsule cyanocobalamin (vitamin B-12) 1,000 mcg PO DAILY 03/05/21 03/30/22 1,000 mcg capsule amiodarone 200 mg PO DAILY 03/02/22 03/30/22 hydrocortisone 25 mg PO HS 03/02/22 03/30/22 isosorbide mononitrate 60 mg PO DAILY 03/02/22 03/30/22 quetiapine 50 mg PO BID 03/02/22 03/30/22 insulin lispro [Humalog KwikPen 1 sliding scale dose SUBCUT 03/03/22 03/30/22 Insulin] USEASDIRECTD amlodipine 5 mg PO DAILY 03/30/22 03/30/22 apixaban 5 mg PO BID 03/30/22 03/30/22 aspirin [Aspir-81] 81 mg PO DAILY 03/30/22 03/30/22 diltiazem HCl 360 mg PO DAILY 03/30/22 03/30/22 ferrous sulfate 325 mg PO DAILY 03/30/22 03/30/22 insulin glargine 10 unit SUBCUT HS 03/30/22 03/30/22 lisinopril 20 mg PO DAILY 03/30/22 03/30/22 metoprolol succinate 100 mg PO BID 03/30/22 03/30/22 ondansetron HCl 4 mg PO Q8H PRN 03/30/22 03/30/22 sertraline 100 mg PO DAILY 03/30/22 03/30/22 tramadol 50 mg PO BID PRN 03/30/22 03/30/22 Allergies Allergy/AdvReac Type Severity Reaction Status Date / Time metformin Allergy Unknown VERY LOW Unverified 03/30/22 13:17 HEARTBEAT,breathing problems Sulfa (Sulfonamide Allergy Unknown Hives,break Unverified 03/30/22 13:17 Antibiotics) out Review of Systems Review of Systems: the patient has decreased responsiveness and is unable to answer questions. All the history is obtained from the . Constitutional: Comments: Denied fever/chills/weakness Cardiovascular: Comments: denied chest pain or shortness of breath Gastrointestinal: Gastrointestinal: Reports abdominal pain, Reports nausea and Reports vomiting Comments: diffuse abdominal pain multiple episodes of nausea and v
[2022-03-30 12:23] LABS: Basophils Absolute Auto 0.05 K/mm3 (0.00-0.10); Basophils Percent Auto 0.3 % (0.0-1.0); Eosinophils Absolute Auto 0.41 K/mm3 (0.02-0.50); Eosinophils Percent Auto 2.4 % (1.0-6.0); Hematocrit 28.2 % (35.0-42.0); Hemoglobin 8.4 g/dL (11.7-13.8); Immature Granulocyte Absolute 0.14 K/mm3 (0.00-0.00); Immature Granulocyte Percent A 0.8 % (0.0-0.0); Lymphocytes Absolute Auto 2.65 K/mm3 (1.10-4.50); Lymphocytes Percent Auto 15.3 % (18.0-42.0); Mean Corpuscular HGB Conc 29.8 g/dL (32.0-36.0); Mean Corpuscular Hemoglobin 24.4 pg (27.0-31.0); Monocytes Absolute Auto 0.56 K/mm3 (0.10-0.90); Monocytes Percent Auto 3.2 % (2.0-11.0); Neutrophils Absolute Auto 13.5 K/mm3 (1.7-7.2); Platelet Count Result 307 K/mm3 (150-420); Red Blood Count 3.44 M/mm3 (4.20-5.40); Red Cell Distribution Width 15.8 % (11.6-14.4); White Blood Count 17.3 K/mm3 (4.8-10.8)
[2022-03-30] MEDS: HYDROCORTISONE SODIUM SUCCINATE 100 MG/2 ML VIAL IV PUSH (12:25)
[2022-03-30] MEDS: ETOMIDATE 20 MG/10 ML AMPUL IV PUSH (12:30)
[2022-03-30] MEDS: VECURONIUM BROMIDE 10 MG VIAL 7 MG IV PUSH (12:30)
[2022-03-30 12:31] LABS: INR 1.2; Partial Thromboplastin Time 28.2 SEC (23.90-30.70); Prothrombin Time 12.7 Seconds (9.50-12.10)
[2022-03-30] MEDS: MIDAZOLAM HCL (*CRX) 2 MG/2 ML VIAL (12:31)
[2022-03-30 12:33] LABS: D Dimer 1.65 mg/L (0.19-0.50); Lactic Acid Reflex 2.6 mmol/L (0.4-2.0)
[2022-03-30 12:38] LABS: Alanine Aminotransferase 31 U/L (14-59); Albumin Level 2.8 g/dL (3.4-5.0); Alkaline Phosphatase 454 U/L (46-116); Anion Gap 9 mmol/L (8-16); Aspartate Amino Transferase 152 U/L (15-37); Bilirubin,Total 0.8 mg/dL (0.00-1.00); Blood Urea Nitrogen 33 mg/dL (7-18); Calcium 8.8 mg/dL (8.5-10.1); Carbon Dioxide 25 mmol/L (21-32); Chloride 103 mmol/L (98-108); Estimated Glomerular Filt Rate 24; Glucose 72 mg/dL (70-99); NT Pro B Type Natriuretic Pept 4785 pg/mL (0-125); Osmolality Calculated 290 mOsm/kg (285-295); Potassium 3.7 mmol/L (3.5-5.1); Sodium 137 mmol/L (136-145); Total Protein 5.9 g/dL (6.4-8.2); Troponin I 26.4 ng/L (0.00-60.4)
--- NOTE | 2022-03-30 12:38 | PC.NURSE ---
ddimer 1.65, erp notified.
--- NOTE | 2022-03-30 13:20 | ECG_ITS ---
Measurements Intervals [place] Rate: 59 P: [place]: 0 QRS: 46 QRSD: 90 T: 263 QT: 385 QTc: 383 Interpretive Statements ELECTRONIC VENTRICULAR PACEMAKER WITH INHIBITION INCOMPLETE RIGHT BUNDLE BRANCH BLOCK BORDERLINE ST-T WAVE ABNORMALITY- DIFFUSE LEADS BASELINE WANDER- AVR, AVL, AVF, V4-V6 BORDERLINE ECG Electronically Signed On 03-30-2022 13:32:08 CDT by Doc Lazaro D.O.
--- NOTE | 2022-03-30 13:48 | PC.NURSE ---
1200 DR HERMOSILLO PLACING CENTRAL LINE XRAY TO CONFIRM COMPLEED AT END OF PROCEDURE 1230 PT INTUBATED FAMILY AWARE 7 ET TUBE [address] AT THE LIP PT PLACE ON VENT [address] WITH RESP. AND RN FOR CT OF HEAD CHEST AND ABD/PELVIS 1310 EM # [id number] PLACED URINE DRAINING TO GRAVITY
[2022-03-30 13:52] LABS: Influenza A QL RT-PCR Negative (Negative); Influenza B QL RT-PCR Negative (Negative)
[2022-03-30 13:53] LABS: SARS-CoV-2 RNA PCR Negative (Negative)
[2022-03-30 14:12] LABS: Lipase 214 U/L (73-393)
[2022-03-30 14:21] LABS: Base Excess ABG -5.7 mmol/L (0-2); HCO3 ABG 19.3 mmol/L (23-29); Oxygen Content ABG 15.7 %vol (16.0-22.0); Oxygen Saturation ABG 98.8 % (95-97); Oxyhemoglobin 98.1 % (94-100); PCO2 ABG 35.7 mmHg (35-45); PO2 ABG 194.4 mmHg (75-85); Total Hemoglobin 11.1 g/dL (12.0-18.0); pH ABG 7.35 (7.35-7.45)
[2022-03-30 14:22] LABS: Device VENTILATOR; Fractional Inspired Oxygen 100 %; Modified Allen's Test Pass; Site Drawn RIGHT BRACHIAL
[2022-03-30 14:23] LABS: Arterial Blood Gas Ventilator rate 16 /MIN
[2022-03-30 14:28] LABS: Arterial Blood Gas Vent Mode ASSIST CONTROL
[2022-03-30] MEDS: LACTATED RINGERS 1,000 ML 150 ML IV CONT (14:31)
[2022-03-30 14:35] LABS: Arterial Blood Gas PEEP 6 cmH2O; Peak Inspiratory Pressure 15 cmH2O
[2022-03-30 14:36] LABS: Arterial Blood Gas Tidal Volume 400 ml
[2022-03-30 15:13] LABS: Reflex Lactic Acid Yes or No Add Lactic
[2022-03-30 16:00] LABS: Lactic Acid 2.6 mmol/L (0.4-2.0)
[2022-03-30 16:05] LABS: Glucose Point of Care 215 mg/dl (65-105)
--- NOTE | 2022-03-30 16:49 | PC.NURSE ---
[address] [facility] GO[facility] BY AIR [facility]AC
--- NOTE | 2022-03-30 17:15 | PC.NURSE ---
1705 air evac here to transport pt
== END 2022-03-30 17:34 | disposition short-term general hospital (02) ==
PROVIDERS: Emergency Provider Internal Medicine Critical Care Medicine; PCP Internal Medicine
DX: R41.82 Altered mental status, unspecified (principal); J96.01 Acute respiratory failure with hypoxia; K52.9 Noninfective gastroenteritis and colitis, unspecified; D64.9 Anemia, unspecified; N17.9 Acute kidney failure, unspecified; I50.9 Heart failure, unspecified; I48.91 Unspecified atrial fibrillation; Z20.822 Contact with and (suspected) exposure to COVID-19; E11.9 Type 2 diabetes mellitus without complications
CPT/HCPCS: 31500; 36415; 36556; 36600; 70450; 71250; 74176; 80053; 82805; 82948; 83605; 83690; 83880; 84484; 85025; 85380; 85610; 85730; 87040; 87147; 87186; 87502; 93005; 96361; 96365; 96366; 96367; 96375; 99285; C1751; C9803; J0461; J0692; J1265; J1720; J2250; J3370; J7030; J7060; J7120; U0003; U0005